=== PATIENT | female | born 1930 | race Caucasian/White ===

== ENCOUNTER 2016-10-13 07:37 | Inpatient (IN) | payer MEDICARE ==
[~2016-10-13] VITALS: Ht 160 cm; Wt 71.3 kg
[~2016-10-13 07:37] MED LIST: AMLO10TA2 PO; BRIM5DRO10 BOTH EYES; CHOL500019 PO; CLOP75TA33 PO; DOCU50CA5 PO; DULO60CA46 PO; HYDR25TA PO; INSU3INS3 SQ; LOSA100T44 PO; MV,C1TAB34 PO; ROSU10TA PO; SENN8.6C5 PO; ZOLP5TAB8 PO
--- OUTSIDE RECORDS SUMMARY | 2016-10-13 07:43 | XMS REPORT ---
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 80706674 Assessment Malignant neoplasm of right female breast, unspecified site of breast C50.911 Aug, Active 979004621 Problem Malignant neoplasm of right female breast, unspecified site of breast C50.911 Active 881662378 Problem Fibromyalgia M79.7 Active 663433231 Problem senior living current use of insulin Z79.4 Active 909917214 Problem History of left breast cancer Z85.3 Active 014936580 Problem Chronic pain syndrome G89.4 Active 410012469 Problem 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
--- OUTSIDE RECORDS SUMMARY | 2016-10-13 07:43 | XMS REPORT | Continuity of Care Document ---
Author Author [facility] Organization [facility] Address Unknown Phone Unavailable Support Name Relationship Address Phone JONATHAN TRIANA Caregiver [address] [place] [address] LALA ORONA MD Caregiver [facility] [address] [place], [place] [phone] NICA JULIO Next Of Kin [address] [facility] [place] [address] Insurance Providers Payer Name Policy Number Subscriber Name Relationship Medicarehumana [id number] Eleni Julio V 18 Self Advance Directives Directive Response Recorded Date/Time Ordered Resuscitation Status Full Code, unverified 07/20/14 3:43pm Resuscitation Documents on File Yes 07/20/14 1:15pm Problems No known problems or medical conditions. Medications Medication Dose Route Sig Days/Qty Instructions Order Date Discontinued Date Status Clopidogrel Bisulfate 5 Mg PO DAILY 90 Days START TOMORROW 05/25/14 DUE TO BIOPSY 05/23/14 Active Insulin Glargine,Hum.rec.anlog 20 Unit SQ TWICE A DAY 05/24/14 Active Brimonidine Tartrate/Timolol 1 Drop BOTH EYES TWICE A DAY 05/24/14 Active Hydrochlorothiazide 1 Tab PO GIVE WITH BREAKFAST 05/24/14 Active Losartan Potassium Unknown Dose PO DAILY 05/24/14 Active Amlodipine Besylate 10 Mg PO DAILY 05/24/14 Active Zolpidem Tartrate 5 Mg PO BEDTIME 05/24/14 Active Rosuvastatin Calcium 10 Mg PO BEDTIME Take 1 tablet, by mouth, one time a day at bedtime. 05/24/14 Active Cholecalciferol (Vitamin D3) 1 Tab PO DAILY 05/24/14 Active Mv,Ca,Iron,Min/FA/Phytosterol 1 Tab PO DAILY 05/24/14 Active Docusate Sodium 2 Cap PO TWICE A DAY 05/24/14 Active Sennosides 8.6 Mg PO BEDTIME 05/24/14 Active Duloxetine HCl 1 Cap PO DAILY 07/20/14 Active Social History Social History Problem Response Recorded Date/Time Chewing Tobacco Status No 07/20/2014 1:10pm Hx Substance Use No 07/20/2014 1:10pm Hx Alcohol Use No 07/20/2014 1:10pm Has the pt used tobacco in the last 12 months No 07/20/2014 1:10pm Query Response Start Date Stop Date Smoking Status Never smoker Hospital Discharge Instructions No hospital discharge instructions. Plan of Care No plan of care. Functional Status No functional status results. Allergies, Adverse Reactions, Alerts Allergen Type Severity Reaction Status Last Updated Iodine Allergy Unknown HAS A SENSITIVITY Active 05/23/14 Immunizations Name Given Type Hx Influenza Vaccination Y 2013 Historical Hx Pneumococcal Vaccination Y FALL 2013 Historical Hx Influenza Vaccination Y 2013 Historical Vital Signs Acute Vital Signs Vital Response Date/Time Temperature (Fahrenheit) 97.5 deg F (96.8 - 99.1) Temperature (Calculated Celsius) 36.55894 degrees C (36.0 - 37.3) Temperature Source Temporal Pulse Rate (adult) 68 bpm (60 - 100) Respiratory Rate 16 breaths/min (10 - 20) O2 Sat by Pulse Oximetry 99 % (90 - 100) Oxygen Delivery Method Room Air Blood Pressure 152/67 mm Hg Blood Pressure Source Automatic Cuff Height 5 ft 3 in Weight 172 lb Body Mass Index 30.0 kg/m^2 Results Test Source Date Result Interp. Ref. Range Comments Glucometer July 21, 2014 6:33am 110 mg/dL N 65-110 Alanine Aminotransferase (ALT/SGPT) June 01, 2014 9:49am 27 U/L N 9- 52 Albumin June 01, 2014 9:49am 3.8 G/DL N 3.5-5.0 Albumin/Globulin Ratio June 01, 2014 9:49am 1.2 RATIO N 1.1-2.2 Alkaline Phosphatase June 01, 2014 9:49am 116 U/L N 38-126 Anion Gap June 01, 2014 9:49am 9 MEQ/L N 5-15 Aspartate Amino Transf (AST/SGOT) June 01, 2014 9:49am 27 U/L N 14- 36 BUN/Creatinine Ratio June 01, 2014 9:49am 30 RATIO H 6-26 Basophils # (Auto) June 01, 2014 9:49am 0.1 T/MM3 N 0-0.2 Basophils (%) (Auto) June 01, 2014 9:49am 0.7 % N 0-2 Blood Urea Nitrogen June 01, 2014 9:49am 30.0 MG/DL H 7-17 CA 27.29 June 01, 2014 9:49am 42.21 U/ML H 0-37.7 Calcium Level June 01, 2014 9:49am 11.3 MG/DL H 8.4-10.2 Calculated Osmolality June 01, 2014 9:49am 275 MOSM/KG N 261-280 Carbon Dioxide Level June 01, 2014 9:49am 28 MEQ/L N 22-30 Carcinoembryonic Antigen June 01, 2014 9:49am 10.40 UG/L H 0-3.0 Chloride Level June 01, 2014 9:49am 104 MEQ/L N 98-107 Creatinine June 01, 2014 9:49am 1.0 MG/DL N 0.7-1.2 Eosinophils # (Auto) June 01, 2014 9:49am 0.3 T/MM3 N 0-0.5 Eosinophils (%) (Auto) June 01, 2014 9:49am 4.1 % H 0-4 Globulin June 01, 2014 9:49am 3.2 G/DL N 2.4-3.6 Glucose Level June 01, 2014 9:49am 68 MG/DL N 65-110 Hematocrit June 01, 2014 9:49am 40.4 % N 36-46 Hemoglobin June 01, 2014 9:49am 14.0 GM/DL N 12-16 Lactate Dehydrogenase June 01, 2014 9:49am 381 U/L N 313-618 Lymphocytes # (Auto) June 01, 2014 9:49am 2.2 T/MM3 N 1-4.8 Lymphocytes (%) (Auto) June 01, 2014 9:49am 27.3 % N 23-45 Mean Corpuscular Hemoglobin June 01, 2014 9:49am 31.7 UUG N 26-34 Mean Corpuscular Hemoglobin Concent June 01, 2014 9:49am 34.7 GM/DL N 31-37 Mean Corpuscular Volume June 01, 2014 9:49am 91.4 UM3 N 80-100 Mean Platelet Volume June 01, 2014 9:49am 10.2 UM3 N 9.4-12.4 Monocytes # (Auto) June 01, 2014 9:49am 0.6 T/MM3 N 0-0.8 Monocytes (%) (Auto) June 01, 2014 9:49am 7.6 % N 0-9.0 Neutrophils # (Auto) June 01, 2014 9:49am 4.8 T/MM3 N 1.8-7.7 Neutrophils (%) (Auto) June 01, 2014 9:49am 60.1 % N 33-66 Platelet Count June 01, 2014 9:49am 172 T/MM3 N 130-400 Potassium Level June 01, 2014 9:49am 4.0 MEQ/L N 3.6-5 Prothromb Time International Ratio May 24, 2014 8:40am 1.08 N 0.81- 1.09 THERAPUTIC RANGE=2.00-3.00 FOR ANTI-THROMBOSIS THERAPUTIC RANGE=2.50- 3.50 FOR IMPLANTED VALVE RDW Standard Deviation June 01, 2014 9:49am 41.5 FL N 36.9-50.2 Red Blood Count June 01, 2014 9:49am 4.42 M/MM3 N 4.00-5.20 Sodium Level June 01, 2014 9:49am 141 MEQ/L N 134-144 Total Bilirubin June 01, 2014 9:49am 0.60 MG/DL N 0.20-1.30 Total Protein June 01, 2014 9:49am 7.0 G/DL N 6.3-8.2 White Blood Count June 01, 2014 9:49am 8.0 T/MM3 N 4.5-11.0 Chemistry Specimen Hemolysis June 01, 2014 9:49am < 15 0-25 0-25 : No Hemolysis.26-70: Slight Hemolysis - can falsely elevate K and Urine Protein. 71-285: Moderate Hemolysis - can falsely elevate K, Troponin I, CA 19-9, PTH, CSF GLucose, and Urine Protein, and can falsely decrease Phenytoin. 286-999: Gross Hemolysis - can falsely elevate K, Troponin I, CA 19-9, PTH, CSF Glucose, and Urine Protine, and can falsely decrease Phenytoin. Recommend specimen recollection. Lab Scanned Report June 01, 2014 7:54pm LAB TEST FORM REQUEST [id number] - Turbidity June 01, 2014 9:49am < 20 0-20 Glomerular Filtration Rate Calc June 01, 2014 9:49am 53 - Immature Granulocyte # (Auto) June 01, 2014 9:49am 0.02 T/MM3 N 0.00 -0.03 Immature Granulocyte % (Auto) June 01, 2014 9:49am 0.2 % N 0.0-0.5 Icterus Index June 01, 2014 9:49am < 2 0-7 Name: ELENI JULIO V Unit #: [id number] : 1930 Sex: F Loc / Svc: MARÍA DOS: 06/09/14 Signed Report #: [id number] DIAGNOSTIC IMAGING REPORT TYPE OF EXAM: MRI THORACIC SPINE W/WO CONTRA Dictated By: DEXTER MERAZ MD INDICATION: ITS.REASON: 174.9 BREAST CA 733.90 DISORDER BONE AND CARTILAGE MRI THORACIC SPINE W/WO CONTRA: Comparison: None Technique: Multiplanar multisequence MR imaging of the thoracic spine was performed with and without contrast. Contrast: 7 mL Gadavist Findings: There are multiple metastatic lesions seen in the thoracic spine. These show expected T1 hypointensity, T2 hyperintensity and postcontrast enhancement. Lesions involve the posterior half of the T6 vertebra extending into the posterior elements on the left. There is also small lesion in the superior endplate of T7. Another lesion spans the T8-T9 disk space involving the inferior endplate of T8 and superior endplate of T9. A rounded lesion in the body of T11. Prominent lesion involving the posterior one third of the L1 vertebral body is also seen. There is no extra vertebral extension of mass however. No evidence of acute spinal cord compression. However there is evidence of cord compression posterior to the T2 vertebra which appears to be due to a disk protrusion. This is probably long-standing as there is evidence of myelomalacia in this location. There is also a prominent venous plexus posterior to the cord in this location. There are two hypointense lines within the posterior aspect of the T6 vertebra which could represent a nondisplaced fracture. This is best appreciated on the postcontrast sequence. No other areas suspicious for pathologic fracture appreciated. Numerous Schmorl's nodes are present. Central disk protrusion at T6-T7 causing mild central canal stenosis and impression on the cord. Right central disk protrusion at T11-T12 without significant central canal stenosis however. No gross neural foraminal stenosis Impression: 1. Multifocal osseous metastatic disease with a possible pathologic fracture involving the posterior aspect of the T6 vertebra. 2. 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 No other areas of spinal cord compression. . Procedures Procedure Status Date Provider(s) ROUTINE VENIPUNCTURE completed 05/12/14 COMPREHEN METABOLIC PANEL completed 05/12/14 CARCINOEMBRYONIC ANTIGEN completed 05/12/14 LACTATE (LD) (LDH) ENZYME completed 05/12/14 COMPLETE CBC W/AUTO DIFF WBC completed 05/12/14 IMMUNOASSAY TUMOR CA 15-3 completed 05/12/14 CT SOFT TISSUE NECK W/O DYE completed 05/17/14 CT THORAX W/O DYE completed 05/17/14 CT ABD & PELVIS W/O CONTRAST completed 05/17/14 US EXAM CHEST completed 05/17/14 BIOPSY OF NECK/CHEST completed 05/24/14 DEXTER MERAZ MD ROUTINE VENIPUNCTURE completed 05/24/14 ECHO GUIDE FOR BIOPSY completed 05/24/14 AUTOMATED PLATELET COUNT completed 05/24/14 PROTHROMBIN TIME completed 05/24/14 TISSUE EXAM BY PATHOLOGIST completed 05/24/14 ROUTINE VENIPUNCTURE completed 06/01/14 MRI NECK SPINE W/O & W/DYE completed 06/01/14 PET IMAGE W/CT SKULL-THIGH completed 06/01/14 COMPREHEN METABOLIC PANEL completed 06/01/14 CARCINOEMBRYONIC ANTIGEN completed 06/01/14 LACTATE (LD) (LDH) ENZYME completed 06/01/14 COMPLETE CBC W/AUTO DIFF WBC completed 06/01/14 IMMUNOASSAY TUMOR CA 15-3 completed 06/01/14 [id number]"FLUORODEOXYGLUCOSE F-18 FDG, DIAGNOSTIC, PER STUDY DO completed GADAVIST 10ML SDV - Contrast,Gadavist 10ml completed 06/01/14 MRI CHEST SPINE W/O & W/DYE completed 06/09/14 GADAVIST 10ML SDV - Contrast,Gadavist 10ml completed 06/09/14 Colonoscopy with polypectomy and biopsy completed 07/21/14 LAAL ORONA MD Encounters Encounter Location Date/Time Registered [facility] 06/09/14 7:32am Registered [facility] 06/01/14 6:30am Departed [facility] 05/24/14 8:09am Registered [facility] 05/17/14 7:13am Registered [facility] 05/12/14 12:46pm
--- OUTSIDE RECORDS SUMMARY | 2016-10-13 07:43 | XMS REPORT | Continuity of Care Document ---
Author Author [facility] Organization [facility] Address Unknown Phone Unavailable Support Name Relationship Address Phone ASHA PALMER II, MD Caregiver [address] [place] [address] Unavailable MAGDALENA RICHARDSON Caregiver [address] [place] [address] Unavailable DIANNA JULIO Next Of Kin [place], [place] [phone] Insurance Providers Guarantor Eleni Julio V Address [address] [place] [address] PRINCE Email DENIED/NO TO PT PORT Payer Medicare Policy Number [id number] Subscriber's Name Eleni Julio V Relationship 18 Self Effective Date [address] [facility] Policy Number [id number] Subscriber's Name Eleni Julio V Relationship 18 Self Group Number [id number] Problems No problem information available. Medications Current Home Medications Medication Dose Units Route Directions Days Qty Instructions Start Date Amlodipine Besylate 10 Mg Tablet 10 Mg Oral Daily 05/24/14 Brimonidine Tartrate/Timolol (Combigan Eye Drops) 5 Ml Drops 1 Drop Both Eyes Twice A Day 05/24/14 Cholecalciferol (Vitamin D3) (Vitamin D) 5,000 Unit Tablet 1 Tab Oral Daily 05/24/14 Clopidogrel Bisulfate (Clopidogrel) 75 Mg Tablet 5 Mg Oral Daily 90 Days START TOMORROW 05/25/14 DUE TO BIOPSY 05/23/14 Docusate Sodium (Colace) 50 Mg Capsule 2 Cap Oral Twice A Day Duloxetine Hcl (Cymbalta) 60 Mg Capsule. 1 Cap Oral Daily 07/20 Hydrochlorothiazide 25 Mg Tablet 1 Tab Oral Give With Breakfast 05/24/14 Insulin Glargine,Hum.rec.anlog (Lantus Solostar) 1 Unit Pen 20 Unit Sub-Q Twice A Day 05/24/14 Losartan Potassium 100 Mg Tablet Unknown Dose Oral Daily Mv,Ca,Iron,Min/Fa/Phytosterol (Centrum Specialist Heart Tab) 1 Each Tablet 1 Tab Oral Daily 05/24/14 Rosuvastatin Calcium (Crestor) 10 Mg Tablet 10 Mg Oral Bedtime Take 1 tablet, by mouth, one time a day at bedtime. 05/24/14 Sennosides (Senna) 8.6 Mg Capsule 8.6 Mg Oral Bedtime 05/24/14 Zolpidem Tartrate 5 Mg Tablet 5 Mg Oral Bedtime Take 1 tablet, by mouth, 1 time a day (at BEDTIME). 05/24/14 Social History Social History Problem Response Recorded Date/Time Onset Date Status Hx Substance Use No 07/20/2014 1:10pm Not Applicable Not Applicable Hx Alcohol Use No 07/20/2014 1:10pm Not Applicable Not Applicable Has the pt used tobacco in the last 12 months No 07/20/2014 1:10pm Not Applicable Not Applicable Hospital Discharge Instructions No hospital discharge instructions. Plan of Care Prescriptions See Medication Section Functional Status No functional status results. Allergies, Adverse Reactions, Alerts Allergen Type Severity Reaction Status Last Updated Iodine Allergy Unknown HAS A SENSITIVITY Active 05/23/14 Immunizations Query Response on File Recorded Date/Time Hx Influenza Vaccination Y 2013 07/20/14 1:10pm Hx Pneumococcal Vaccination Y fall 201307/20/14 1:10pm Hx Influenza Vaccination Y 2013 07/20/14 1:10pm Vital Signs No known vital signs results. Results Laboratory Results Test Name Result Units Flags Reference Collection Date/Time Result Date/ Time Comments White Blood Count 10.2 T/MM3 4.5-11.0 06/04/2016 5:15pm 06/04/2016 5: 36pm Red Blood Count 4.22 M/MM3 4.00-5.20 06/04/2016 5:15pm 06/04/2016 5: 36pm Hemoglobin 13.1 GM/DL 12-16 06/04/2016 5:15pm 06/04/2016 5:36pm Hematocrit 39.6 % 36-46 06/04/2016 5:15pm 06/04/2016 5:36pm Mean Corpuscular Volume 93.8 UM3 80-100 06/04/2016 5:15pm 06/04/2016 5: 36pm Mean Corpuscular Hemoglobin 31.0 UUG 26-34 06/04/2016 5:152015 5:36pm Mean Corpuscular Hemoglobin Concent 33.1 GM/DL 31-37 06/04/2016 5:15pm 06/04/2016 5:36pm RDW Standard Deviation 41.3 FL 36.9-50.2 06/04/2016 5:15pm 06/04/2016 5 :36pm Platelet Count 200 T/MM3 130-400 06/04/2016 5:15pm 06/04/2016 5:36pm Mean Platelet Volume 9.9 UM3 9.4-12.4 06/04/2016 5:15pm 06/04/2016 5: 36pm Neutrophils (%) (Auto) 56.7 % 33-66 06/04/2016 5:15pm 06/04/2016 5: 36pm Lymphocytes (%) (Auto) 29.7 % 23-45 06/04/2016 5:15pm 06/04/2016 5: 36pm Monocytes (%) (Auto) 7.7 % 0-9.0 06/04/2016 5:15pm 06/04/2016 5:36pm Eosinophils (%) (Auto) 4.7 % H 0-4 06/04/2016 5:15pm 06/04/2016 5:36pm Basophils (%) (Auto) 0.9 % 0-2 06/04/2016 5:15pm 06/04/2016 5:36pm Immature Granulocyte % (Auto) 0.3 % 0.0-0.5 06/04/2016 5:15pm 2015 5:36pm Absolute Neutrophils (auto) 5.8 T/MM3 1.8-7.7 06/04/2016 5:15pm 2015 5:36pm Absolute Lymphocytes (auto) 3.0 T/MM3 1-4.8 06/04/2016 5:15pm 2015 5:36pm Absolute Monocytes (auto) 0.8 T/MM3 0-0.8 06/04/2016 5:15pm 06/04/2016 5:36pm Absolute Eosinophils (auto) 0.5 T/MM3 0-0.5 06/04/2016 5:15pm 2015 5:36pm Absolute Basophils (auto) 0.1 T/MM3 0-0.2 06/04/2016 5:15pm 06/04/2016 5:36pm Absolute Immature Granulocyte (auto 0.03 T/MM3 0.00-0.03 06/04/2016 5: 15pm 06/04/2016 5:36pm Prothromb Time International Ratio 0.98 0.76-1.04 06/06/2016 4:32pm 06/06/2016 5:52pm THERAPUTIC RANGE=2.00-3.00 FOR ANTI-THROMBOSIS THERAPUTIC RANGE=2.50-3.50 FOR IMPLANTED VALVE Fibrinogen 427 MG/DL 175-450 06/06/2016 4:32pm 06/06/2016 5:52pm D-Dimer 235 NG/ML H 0-230 06/06/2016 4:32pm 06/06/2016 5:52pm <230 NG/ ML D-DU=PRESUMPTIVE NEGATIVE FOR PE OR DVT >230 NG/ML D-DU=ADDITIONAL EVAL FOR PE OR DVT RECOMMENDED Icterus Index < 2 0-7 06/04/2016 5:15pm 06/04/2016 5:39pm Chemistry Specimen Hemolysis < 15 0-25 06/04/2016 5:15pm 06/04/2016 5 :39pm 0-25: Specimen Exhibited No Hemolysis. Turbidity < 20 0-20 06/04/2016 5:15pm 06/04/2016 5:39pm Sodium Level 146 MEQ/L H 134-144 06/04/2016 5:15pm 06/04/2016 5:39pm Potassium Level 4.3 MEQ/L 3.6-5 06/04/2016 5:15pm 06/04/2016 5:39pm Chloride Level 107 MEQ/L 98-107 06/04/2016 5:15pm 06/04/2016 5:39pm Carbon Dioxide Level 25 MEQ/L 22-30 06/04/2016 5:15pm 06/04/2016 5: 39pm Anion Gap 14 MEQ/L 5-15 06/04/2016 5:15pm 06/04/2016 5:39pm Blood Urea Nitrogen 38.0 MG/DL H 7-17 06/04/2016 5:15pm 06/04/2016 5: 39pm Creatinine 1.3 MG/DL H 0.7-1.2 06/04/2016 5:15pm 06/04/2016 5:39pm BUN/Creatinine Ratio 29 RATIO H 6-26 06/04/2016 5:15pm 06/04/2016 5: 39pm Glomerular Filtration Rate Calc 39 06/04/2016 5:15pm 06/04/2016 5: 39pm Glucose Level 150 MG/DL H 65-110 06/04/2016 5:15pm 06/04/2016 5:39pm Calculated Osmolality 293 MOSM/KG H 261-280 06/04/2016 5:15pm 2015 5:39pm Calcium Level 10.9 MG/DL H 8.4-10.2 06/04/2016 5:15pm 06/04/2016 5:39pm Phosphorus Level 3.5 MG/DL 2.5-4.5 04/18/2016 8:41am 04/18/2016 9:00am Total Bilirubin 0.50 MG/DL 0.20-1.30 06/04/2016 5:15pm 06/04/2016 5: 39pm Alkaline Phosphatase 58 U/L 38-126 06/04/2016 5:15pm 06/04/2016 5:39pm Total Protein 7.4 G/DL 6.3-8.2 06/04/2016 5:15pm 06/04/2016 5:39pm Albumin 4.0 G/DL 3.5-5.0 06/04/2016 5:15pm 06/04/2016 5:39pm Globulin 3.4 G/DL 2.4-3.6 06/04/2016 5:15pm 06/04/2016 5:39pm Albumin/Globulin Ratio 1.2 RATIO 1.1-2.2 06/04/2016 5:15pm 06/04/2016 5 :39pm Aspartate Amino Transf (AST/SGOT) 23 U/L 14-36 06/04/2016 5:15pm 2015 5:39pm Alanine Aminotransferase (ALT/SGPT) 26 U/L 9-52 06/04/2016 5:15pm 06/04 5:39pm Lactate Dehydrogenase 417 U/L 313-618 06/04/2016 5:15pm 06/04/2016 5: 39pm C-Reactive Protein < 5.0 MG/L 0-9 06/04/2016 5:15pm 06/06/2016 2:19pm Magnesium Level 1.9 MG/DL 1.6-2.3 05/16/2016 9:05am 05/16/2016 9:20am Immunoglobulin G 965.96 MG/DL 700-1600 06/07/2016 12:31pm 06/07/2016 12 :52pm Immunoglobulin A 366.41 MG/DL 70-400 06/07/2016 12:31pm 06/07/2016 12: 52pm Immunoglobulin M 37.94 MG/DL L 40-230 06/07/2016 12:31pm 06/07/2016 12: 52pm Carcinoembryonic Antigen 4.03 UG/L H 0-3.0 06/04/2016 5:15pm 06/04/2016 6:09pm CA 27.29 40.53 U/ML H 0-37.7 06/04/2016 5:15pm 06/04/2016 6:21pm Cryoglobulin Negative %ppt Negative 06/07/2016 12:31pm 06/11/2016 10: 13am This test is negative at 24 hours. All samples are held and reviewed again at 7 days. If delayed precipitation occurs after 7 days, Immunofixation will be performed and an additional report will follow. Test Performed by: [place] [address] Material Carrier: Miguel Arias II, M.D., Ph.D. Cryoglobulin, S performed at [facility], [address] [place] [address] Frankfurter Inspector Juana Cardenas MD Serum Total Protein 6.2 g/dL 6.0-7.6 06/07/2016 12:31pm 06/07/2016 9: 44pm Immunoelectrophoresis, no IMQ performed at [facility], [address] [place] [address] Frankfurter Inspector Leonard Whiteside DO Albumin (PEP) 3.4 g/dL 2.6-4.5 06/07/2016 12:31pm 06/10/2016 2:10pm Vnjiy-0-Koibiehti 0.3 g/dL 0.3-0.5 06/07/2016 12:31pm 06/10/2016 2: 10pm Bmvvn-9-Ehsgdohzk 0.9 g/dL 0.6-1.2 06/07/2016 12:31pm 06/10/2016 2: 10pm Slfd-7-Xrfbpitu 0.4 g/dL 0.4-0.6 06/07/2016 12:31pm 06/10/2016 2:10pm Vnky-8-Mzwxfvbm 0.4 g/dL 0.2-0.5 06/07/2016 12:31pm 06/10/2016 2:10pm Gamma Globulins 0.9 g/dL 0.4-1.7 06/07/2016 12:31pm 06/10/2016 2:10pm Albumin % (PEP) 55.2 % 48.7-61.8 06/07/2016 12:31pm 06/10/2016 2:10pm Tiakz-7-Uaumyohzc (%) 4.5 % 3.4-8.3 06/07/2016 12:31pm 06/10/2016 2: 10pm Zsqdt-1-Kpnnhnqft (%) 14.6 % 8.4-17.5 06/07/2016 12:31pm 06/10/2016 2: 10pm Ttda-1-Jkltwyhd (%) 5.6 % 5.4-8.9 06/07/2016 12:31pm 06/10/2016 2:10pm Nwim-5-Jmobclog (%) 6.4 % 3.8-7.7 06/07/2016 12:31pm 06/10/2016 2:10pm Gamma Globulins (%) 13.7 % 8.1-23.0 06/07/2016 12:31pm 06/10/2016 2: 10pm Immunoelectrophoresis, no IMQ performed at [facility], [address] [place] [address] Frankfurter Inspector Leonard Whiteside DO Protein Electrophoresis Comment see below 06/07/2016 12:31pm 2015 2:10pm Normal electrophoretic pattern. No monoclonal peaks or restricted areas observed by immunofixation. Free Goldfield/Lambda Light Chain Ratio 2.31 H 06/07/2016 12:31pm 2015 2:13pm Reference Range: 0.2600-1.65 Test Performed by: [address] [address] Material Carrier: Miguel Arias II, M.D., Ph.D. Immunoglobulin Free Light Chains, Serum performed at [facility], [address] [place] [address] Frankfurter Inspector Juana Cardenas MD Free Goldfield Light Chains 4.41 mg/dL H 06/07/2016 12:31pm 06/10/2016 2: 13pm Reference Range: 0.3300-1.94 Free Lambda Light Chains 1.91 mg/dL () 06/07/2016 12:31pm 06/10/2016 2: 13pm Reference Range: 0.5700-2.63 Test Performed by: [place] [address] Material Carrier: Miguel Arias II, M.D., Ph.D. Immunoglobulin Free Light Chains, Serum performed at [facility], [address] [place] [address] Frankfurter Inspector Juana Cardenas MD Reference Range: 0.5700-2.63 --- 06/10/16 1413 --- IFLCLA previously reported as: 1.91 mg/dL Reference Range: 0.5700-2.63 Test Performed by: [place] [address] Material Carrier: Miguel Arias II, M.D., Ph.D. Immunoglobulin Free Light Chains, Serum performed at [facility], [address] [place] [address] Frankfurter Inspector Juana Cardenas MD Erythrocyte Sedimentation Rate 32 mm/h H 0-23 06/06/2016 4:32pm 2015 1:23am Sedimentation Rate performed at [facility], [address] [place] [address] Frankfurter Inspector Leonard Whiteside, Procedures No known history of procedures. Encounters Encounter Location Arrival/Admit Date Discharge/Depart Date Attending Provider Discharged Recurring [facility] 06/07/16 12:02pm 06/29/16 11: 49pm MAGDALENA RICHARDSON
[2016-10-13] MEDS ORDERED: NORMAL SALINE 1,000 ML IV ONE (08:01)
--- NOTE | 2016-10-13 08:01 | ERPDOC ---
Departure Impression Impression Referrals: REYNALDO WYATT (Family) HPI - Abdominal Pain General Chief Complaint: Abdominal Pain Stated Complaint: SEVERE ABD PAIN Time Seen by Provider: 07:59 HPI - Abdominal Pain Initial Comments 86-year-old female presents with abdominal pain. Patient cannot identify exactly where it hurts, but states it hurts all over. She has a history of hemorrhoids which also causes her pain. At this moment she is having difficulty clearly describing, possibly because of the severity of the pain. She has had diarrhea intermittently over the last 10 days, there is some conflicting story as to how much she is passed and whether she has had any solid stools. She denies fevers or chills. Does state she has dysuria. Allergies: Coded Allergies: iodine (Unverified Allergy, Unknown, HAS A SENSITIVITY, 05/23/14) Past History Vaccines Hx Influenza Vaccination: Yes (2013) Hx Pneumococcal Vaccination: Yes (FALL 2013) Physical Exam General Vitals and Pain Weight: Kilograms: Height (feet): 5 Height (inches): 3.00 Triage Pain Scale: EDWARD JOYNER MD Oct 13, 2016 08:01
--- OUTSIDE RECORDS SUMMARY | 2016-10-13 08:07 | XMS REPORT | Continuity of Care Document ---
Author Author [facility] Organization [facility] Address Unknown Phone Unavailable Support Name Relationship Address Phone JONATHAN TRAINA Caregiver [address] [place] [address] LALA ORONA MD Caregiver [facility] [address] [place], [place] [phone] NICA JULIO Next Of Kin [address] [facility] [place] [address] Insurance Providers Payer Name Policy Number Subscriber Name Relationship Medicarehumana [id number] Eleni Julio V 18 Self Advance Directives [...] F (96.8 - 99.1) Temperature (Calculated Celsius) 36.78349 degrees C (36.0 - 37.3) Temperature Source [...] 01, 2014 7:54pm LAB TEST FORM REQUEST [id number] - Turbidity June 01, 2014 9:49am < 20 0-20 Glomerular Filtration Rate Calc June 01, 2014 9:49am 53 - Immature Granulocyte # (Auto) June 01, 2014 9:49am 0.02 T/MM3 N 0.00 -0.03 Immature Granulocyte % (Auto) June 01, 2014 9:49am 0.2 % N 0.0-0.5 Icterus Index June 01, 2014 9:49am < 2 0-7 Name: ELENI JUILO V Unit #: [id number] : 1930 Sex: F Loc / Svc: MARÍA DOS: 06/09/14 Signed Report #: [id number] DIAGNOSTIC IMAGING REPORT TYPE OF EXAM: MRI [...] 06/01/14 IMMUNOASSAY TUMOR CA 15-3 completed 06/01/14 [id number]"FLUORODEOXYGLUCOSE F-18 FDG, DIAGNOSTIC, PER STUDY DO completed GADAVIST 10ML SDV - Contrast,Gadavist 10ml completed 06/01/14 MRI CHEST SPINE W/O & W/DYE completed 06/09/14 GADAVIST 10ML SDV - Contrast,Gadavist 10ml completed 06/09/14 Colonoscopy with polypectomy and biopsy completed 07/21/14 LALA ORONA MD Encounters Encounter Location Date/Time Registered [facility] 06/09/14 7:32am Registered [facility] 06/01/14 6:30am Departed [facility] 05/24/14 8:09am Registered [facility] 05/17/14 7:13am Registered [facility] 05/12/14 12:46pm
[2016-10-13] MEDS ORDERED: HYDROMORPHONE 2mg/ml INJECTION IV ONE ×2 (08:15→10:30)
[2016-10-13] MEDS ORDERED: KETOROLAC 30mg/ml INJECTION IV ONE (08:15)
[2016-10-13] MEDS ORDERED: ONDANSETRON 4mg/2ml INJECTION IV ONE (08:15)
[2016-10-13 08:22] LABS: BASOPHILS # (AUTO) 0.1 T/MM3 (0-0.2); BASOPHILS % (AUTO) 0.5 % (0-2); EOSINOPHILS # (AUTO) 0.7 T/MM3 (0-0.5); EOSINOPHILS % (AUTO) 6.3 % (0-4); HCT - HEMATOCRIT 42.1 % (36-46); HGB - HEMOGLOBIN 14.5 GM/DL (12-16); IMMATURE GRANULOCYTE # (AUTO) 0.02 T/MM3 (0.00-0.03); IMMATURE GRANULOCYTE % (AUTO) 0.2 % (0.0-0.5); LYMPHOCYTES # (AUTO) 3.2 T/MM3 (1-4.8); MEAN CORPUSCULAR HGB CONC(MCHC 34.4 GM/DL (31-37); MEAN CORPUSCULAR VOLUME 90.1 UM3 (80-100); MEAN PLATELET VOLUME 10.3 UM3 (9.4-12.4); MONOCYTES # (AUTO) 0.9 T/MM3 (0-0.8); MONOCYTES % (AUTO) 8.4 % (0-9.0); NEUTROPHILS #(AUTO)-ABSOLUTE 6.1 T/MM3 (1.8-7.7); NEUTROPHILS % (AUTO) 55.6 % (33-66); RED BLOOD COUNT 4.67 M/MM3 (4.00-5.20); WBC - WHITE BLOOD COUNT 11.1 T/MM3 (4.5-11.0)
[2016-10-13 08:26] LABS: ALBUMIN 3.2 G/DL (3.5-5.0); ALBUMIN/GLOBULIN RATIO 0.9 RATIO (1.1-2.2); ALKALINE PHOSPHATASE 84 U/L (38-126); ALT (SGPT) 26 U/L (9-52); ANION GAP 14 MEQ/L (5-15); AST (SGOT) 30 U/L (14-36); BUN/CREATININE RATIO 16 RATIO (6-26); CALCIUM 10.5 MG/DL (8.4-10.2); CHLORIDE 105 MEQ/L (98-107); CO2 - CARBON DIOXIDE 25 MEQ/L (22-30); CREATININE 1.3 MG/DL (0.7-1.2); GLOMERULAR FILTRATION RATE 39; GLUCOSE 112 MG/DL (65-110); LIPASE 64 U/L (23-300); POTASSIUM 3.9 MEQ/L (3.6-5); SODIUM 144 MEQ/L (134-144); TOTAL PROTEIN 6.7 G/DL (6.3-8.2)
--- NOTE | 2016-10-13 08:30 | NUR ---
IVF ORDER PER DR JOYNER, 500 NS IVF BOLUS FOLLOWED BY 200 ML'S/ HR ORDER VERBAL NOTED.
[2016-10-13] MEDS ORDERED: VANCOMYCIN 1.5 G in NORMAL SALINE 500 ML IV ONE (08:45)
[2016-10-13] MEDS ORDERED: CEFEPIME 1 G in NORMAL SALINE 100 ML IV SCH (08:45)
--- NOTE | 2016-10-13 08:55 | NUR ---
REPORT REPORT TO WESLEY HARO
[2016-10-13] MEDS ORDERED: MULT-1243 PO (09:09)
[2016-10-13] MEDS ORDERED: MULT1TAB13 PO (09:15)
[2016-10-13] MEDS ORDERED: BIMA2.5D6 BOTH EYES (09:18)
[2016-10-13] MEDS ORDERED: CALC-16 PO (09:22)
[2016-10-13] MEDS ORDERED: METO25TA6 PO (09:22)
[2016-10-13] MEDS ORDERED: TRAM50TA4 PO ×2 (09:24→09:31)
[2016-10-13] MEDS ORDERED: ERGO400C PO (09:24)
[2016-10-13] MEDS ORDERED: ACET-2198 PO (09:27)
[2016-10-13] MEDS ORDERED: MAGN400O4 PO (09:27)
[2016-10-13] MEDS ORDERED: BISA10SU16 RECTALLY (09:27)
[2016-10-13] MEDS ORDERED: LORA0.5T2 PO (09:27)
[2016-10-13] MEDS ORDERED: POLY119P3 PO (09:31)
[2016-10-13 09:38] LABS: BLOOD, URINE 1+ (NEGATIVE); COLOR,URINE YELLOW (YELLOW); LEUKOCYTE ESTERASE ,URINE NEGATIVE (NEGATIVE); NITRITE,URINE NEGATIVE (NEGATIVE); UROBILINOGEN,URINE 0.2 EU/DL (NORMAL)
[2016-10-13 09:49] LABS: BACTERIA,URINE 3+ (NEGATIVE); RBC,URINE 0-1 /HPF (0-3); TRANSITIONAL EPI CELLS,URINE 0-1 /HPF; WBC,URINE NONE SEEN /HPF (0-5)
[2016-10-13] MEDS: LEVOFLOXACIN 750 mg IVPB 750 MG in D5W 150 ML IV SCH (09:56)
--- NOTE | 2016-10-13 10:53 | NUR ---
ANURAG MURPHY RN ASSIGNS ROOM 162 WITH JAMES RAMOS RN
--- NOTE | 2016-10-13 10:57 | NUR ---
REPORT CALLED [phone] NO ANSWER AT THIS TIME
--- NOTE | 2016-10-13 11:05 | NUR ---
IVF VERBAL ORDER FOR 1 LITER NS AT 500 CC PER HOUR FOR SEPSIS PROTOCOL
--- OUTSIDE RECORDS SUMMARY | 2016-10-13 11:05 | XMS REPORT | Continuity of Care Document ---
Author Author [facility] Organization [facility] Address Unknown Phone Unavailable Support Name Relationship Address Phone JONATHAN TRIANA Caregiver [address] [address] LALA ORONA MD Caregiver [facility] [address] [place], [place] [phone] NICA JULIO Next Of Kin [address] [facility] [place] [address] Insurance Providers Payer Name Policy Number Subscriber Name Relationship Medicarehumana [id number] Eleni Julio V 18 Self Advance Directives [...] F (96.8 - 99.1) Temperature (Calculated Celsius) 36.73891 degrees C (36.0 - 37.3) Temperature Source [...] 01, 2014 7:54pm LAB TEST FORM REQUEST [id number] - Turbidity June 01, 2014 9:49am < 20 0-20 Glomerular Filtration Rate Calc June 01, 2014 9:49am 53 - Immature Granulocyte # (Auto) June 01, 2014 9:49am 0.02 T/MM3 N 0.00 -0.03 Immature Granulocyte % (Auto) June 01, 2014 9:49am 0.2 % N 0.0-0.5 Icterus Index June 01, 2014 9:49am < 2 0-7 Name: ELENI JULIO V Unit #: [id number] : 1930 Sex: F Loc / Svc: MARÍA DOS: 06/09/14 Signed Report #: [id number] DIAGNOSTIC IMAGING REPORT TYPE OF EXAM: MRI [...] 06/01/14 IMMUNOASSAY TUMOR CA 15-3 completed 06/01/14 [id number]"FLUORODEOXYGLUCOSE F-18 FDG, DIAGNOSTIC, PER STUDY DO completed GADAVIST 10ML SDV - Contrast,Gadavist 10ml completed 06/01/14 MRI CHEST SPINE W/O & W/DYE completed 06/09/14 GADAVIST 10ML SDV - Contrast,Gadavist 10ml completed 06/09/14 Colonoscopy with polypectomy and biopsy completed 07/21/14 LALA ORONA MD Encounters Encounter Location Date/Time Registered [facility] 06/09/14 7:32am Registered [facility] 06/01/14 6:30am Departed [facility] 05/24/14 8:09am Registered [facility] 05/17/14 7:13am Registered [facility] 05/12/14 12:46pm
--- NOTE | 2016-10-13 11:08 | NUR ---
REPORT TO JAMES HARO ON MEDICAL
[2016-10-13 11:29] VITALS: Ht 160 cm; Wt 71.3 kg
[2016-10-13 11:39] VITALS: BP 201/89; PULSE 91; RESP 20; TEMP 98.6; O2SAT 100
[2016-10-13] MEDS ORDERED: ONDANSETRON 4mg/2ml INJECTION IV PRN (12:15)
[2016-10-13] MEDS ORDERED: METOCLOPRAMIDE 10mg/2ml INJECTION IV PRN (12:15)
[2016-10-13] MEDS: MORPHINE SULFATE 2 MG SYRINGE IV PRN ×3 (12:25→17:57)
[2016-10-13] MEDS: LORAZEPAM 2 MG/ML INJECTION IV PRN (12:27)
[2016-10-13] MEDS ORDERED: HYDROCORTISONE 25 MG RECTAL SUPPOSITORY RECTALLY PRN (12:30)
--- NOTE | 2016-10-13 12:30 | HPPDOC ---
WAGNER STOUT V DIRECTOR OF PLACEMENT 10/13/16 1218: HPI - Adult Date DATE: 10/13/16 TIME: 12:10 General Chief Complaint: abdominal pain, dysuria History of Present Illness Patient is a 6-year-old female who is brought to the emergency room today for evaluation of severe abdominal pain with dysuria. It is reported that patient has been having intermittent episodes of diarrhea for the past 10 days. Over the last 24 hours she has had worsening lower abdominal discomfort accompanied with intermittent nausea.Nursing staff repots that stool is has a "foul" odor. Due to severity in her pain she was sent to the emergency room for further evaluation and treatment. Patient currently resides at [facility]. Patient's son reports that she was found to have recurrence of her breast cancer approximately one month ago and started hormone therapy with Dr. Israel. It is also reported that she has some metastatic disease into her bones. While in the emergency room today. Further evaluation including laboratory studies and CT scan were obtained. Patient was found have an elevated white count at 11.1, hemoglobin 14.5, hematocrit 42.1, platelet count 261. Sodium is 144, potassium 3.9, BUN 21, creatinine 1.3, glucose 112, calculated osmolality 281. LFTs are normal. Venous lactate was found to be elevated at 2.4, pro calcitonin 0.10. An ABG was obtained showing a pH of 7.674, pCO2 18, pO2 30, bicarbonate 21. Urinalysis did show 3+ protein, trace leuk trase, positive blood with 3+ bacteria. Chest x-ray did not reveal any acute cardiopulmonary findings. CT of the abdomen did reveal overdistention of the bladder, with 1200 ML's of urine. Mild colonic diverticulosis without evidence of diverticulitis, extensive osteoblastic skeletal metastasis. She was given IV fluids in the emergency room. She was then started on triple antibiotic therapy including cefepime, Levaquin and vancomycin. She received 2 doses of Dilaudid and Toradol for pain control. As well as Zofran for nausea. Alvarez catheter was placed to dependent drainage. Given bladder overdistention. Given continued severity and pain, as well as findings of sepsis. The hospitalist services were contacted and accepted patient for inpatient admission for further evaluation and treatment. Did review advanced directives with patient and son. She does verify that she is a do not resuscitate. 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 Good) Hysterectomy Removal of blood clot in the spine Current Medications Home Meds Reported Medications Tramadol HCl (Tramadol HCl) 50 Mg Tablet, 50 MG PO BID Y for PAIN 10/13/16 Polyethylene Glycol 3350 (Miralax) 119 Gm Powder, 17 G PO DAILY Y for CONSTIPATION 10/13/16 Magnesium Hydroxide (Milk of Magnesia) 400 Mg/5 Ml Oral.susp, 30 ML PO Q8H Y for CONSTIPATION 10/13/16 Acetaminophen (Mapap) 325 Mg Tablet, 650 MG PO Q4H Y for PAIN 10/13/16 Lorazepam (Lorazepam) 0.5 Mg Tablet, 0.5 MG PO Q8H Y for ANXIETY 10/13/16 Bisacodyl (Bisac-Evac) 10 Mg Supp.rect, 10 MG RECTALLY DAILY Y for CONSTIPATION 10/13/16 Cholecalciferol (Vitamin D3) (Vitamin D) 400 Unit Capsule, 400 MG PO DAILY 10/13/16 Tramadol HCl (Tramadol HCl) 50 Mg Tablet, 100 MG PO HS 10/13/16 Calcium Carbonate (Oyster Shell Calcium) 500 Mg Tablet, 500 MG PO BID 10/13/16 Metoprolol Tartrate (Metoprolol Tartrate) 25 Mg Tablet, 12.5 MG PO BIDWM 10/13/16 Bimatoprost (Lumigan) 25 Drop/2.5 Ml Drops, 1 DROP BOTH EYES HS 10/13/16 Multivit-Min/FA/Lutein/Zeaxant (Icaps Mv Tablet) 1 Each Tablet.dr, 1 TAB PO MoWeFr@0800 10/13/16 Multivits-Min/FA/Lycopene/Lut (Centrum Silver Tablet) 1 Each Tablet, 1 TAB PO TuFr@0800 10/13/16 Duloxetine HCl (Cymbalta) 60 Mg Capsule.dr, 60 MG PO DAILY 07/20/14 Rosuvastatin Calcium (Crestor) 10 Mg Tablet, 10 MG PO DAILY 05/24/14 Zolpidem Tartrate (Zolpidem Tartrate) 5 Mg Tablet, 2.5 MG PO HS Y for INSOMNIA 05/24/14 Amlodipine Besylate (Amlodipine Besylate) 10 Mg Tablet, 10 MG PO DAILY 05/24/14 Losartan Potassium (Losartan Potassium) 100 Mg Tablet, 100 MG PO DAILY 05/24/14 Hydrochlorothiazide (Hydrochlorothiazide) 25 Mg Tablet, 25 MG PO DAILY 05/24/14 Insulin Glargine,Hum.rec.anlog (Lantus Solostar) 1 Unit Pen, 8 UNIT SQ BID 05/24/14 Clopidogrel Bisulfate (Clopidogrel) 75 Mg Tablet, 75 MG PO DAILY for 90 Days 05/23/14 Allergies: Coded Allergies: iodine (Unverified Allergy, Unknown, HAS A SENSITIVITY, 10/13/16) Family History Family History: Father-cancer Mother-[place], diabetes Social History Smoking Status: Never smoker Substance Use Type: does not use Housing: [facility] Advance Directives: Yes DNR, Yes DPOA for Healthcare Only (janell christy) Social History Comments PCP Dr Yvan Cancino Review of Systems Constitutional: REPORTS: appetite decrease, fatigue, weakness GI Upper Abdomen: nausea Lower Abdomen: pain (bilateral lower abd) Comments Hemorrhoid inflammation, pain General: dysuria All Other Systems All Other Systems: Reviewed Physical Exam General General Nourishment: well nourished, well developed Vital Signs Vital Signs Date Time Temp Pulse Resp B/P Pulse Ox O2 Delivery O2 Flow Rate FiO2 10/13/16 11:39 98.6 91 20 201/89 100 Room Air Height (Feet): 5 Height (Inches): 3.00 Eyes Brief: FOUND: EOMI ENMT Brief: FOUND: mucosa moist, normal dentition, NOT FOUND: pharnyx erythema Respiratory Brief: FOUND: clear all motley, equal bilaterally, NOT FOUND: wheezes Cardiovascular (brief) Cardiac Brief: FOUND: regular rate, regular rhythm, NOT FOUND: murmur, pedal edema Abdomen (brief) Abdominal Brief: FOUND: soft, tender (bilateral lower abdomen), NOT FOUND: BS normo active x4 (hypoactive bowel sounds), distended Musculoskeletal (brief) Musculoskeletal Brief: NOT FOUND: tenderness Integumentary (brief) Integumentary Brief: FOUND: dry, pink, warm Neurologic (brief) Neurological Brief: FOUND: cranial 2-12 intact, motor (equal bilateral 4 extremities) Neurologic RN Documented GCS Eye Opening: Verbal: Motor: Total: Psychiatric (brief) FOUND: alert, attentive, normal affect, oriented Laboratory Laboratory Tests Test 10/13/16 08:04 10/13/16 09:08 10/13/16 09:33 White Blood Count 11.1T/MM3 Red Blood Count 4.67M/MM3 Hemoglobin 14.5GM/DL Hematocrit 42.1% Mean Corpuscular Volume 90.1UM3 Mean Corpuscular Hemoglobin 31.0UUG Mean Corpuscular Hemoglobin Concent 34.4GM/DL RDW Standard Deviation 39.3FL Platelet Count 261T/MM3 Mean Platelet Volume 10.3UM3 Immature Granulocyte % (Auto) 0.2% Neutrophils (%) (Auto) 55.6% Lymphocytes (%) (Auto) 29.0% Monocytes (%) (Auto) 8.4% Eosinophils (%) (Auto) 6.3% Basophils (%) (Auto) 0.5% Absolute Immature Granulocyte (auto 0.02T/MM3 Absolute Neutrophils (auto) 6.1T/MM3 Absolute Lymphocytes (auto) 3.2T/MM3 Absolute Monocytes (auto) 0.9T/MM3 Absolute Eosinophils (auto) 0.7T/MM3 Absolute Basophils (auto) 0.1T/MM3 Turbidity < 20 Sodium Level 144MEQ/L Potassium Level 3.9MEQ/L Chloride Level 105MEQ/L Carbon Dioxide Level 25MEQ/L Anion Gap 14MEQ/L Blood Urea Nitrogen 21.0MG/DL Creatinine 1.3MG/DL Glomerular Filtration Rate Calc 39 BUN/Creatinine Ratio 16RATIO Glucose Level 112MG/DL Calculated Osmolality 281MOSM/KG Calcium Level 10.5MG/DL Total Bilirubin 0.90MG/DL Icterus Index < 2 Aspartate Amino Transf (AST/SGOT) 30U/L Alanine Aminotransferase (ALT/SGPT) 26U/L Alkaline Phosphatase 84U/L Total Protein 6.7G/DL Albumin 3.2G/DL Globulin 3.5G/DL Albumin/Globulin Ratio 0.9RATIO Lipase 64U/L Plasma Lactate 2.4MMOL/L Procalcitonin 0.10NG/ML Chemistry Specimen Hemolysis 19 Arterial Blood pH 7.675 Arterial Blood Partial Pressure CO2 18MMHG Arterial Blood pO2 at Patient Temp 30MMHG Arterial Blood HCO3 21MEQ/L Arterial Blood Total CO2 21MEQ/L Arterial Blood Oxygen Saturation 76.0% Arterial Blood Base Excess 1.0MMOL/L Oxygen Delivery Method (LAB) Room air Blood Gas Oxygen Liter Flow Blood Gas Oxygen Percent Given 21 Blood Gas Vent Rate Blood Gas Tidal Volume ML Urine Collection Type Straight cath Urine Color Yellow Urine Turbidity Clear Urine pH 7.0 Urine Specific Haslett 1.020 Urine Protein 3+ Urine Glucose (UA) Trace Urine Ketones Negative Urine Blood 1+ Urine Nitrite Negative Urine Bilirubin Negative Urine Urobilinogen 0.2EU/DL Urine Leukocyte Esterase Negative Urine RBC 0-1/HPF Urine WBC None seen/HPF Urine Transitional Epithelial Cells 0-1/HPF Urine Bacteria 3+ Urine Culture Indicated Cult not indicated Sepsis Diagnostic Criteria Sepsis Confirmed/Suspected Infection: Yes SIRS Criteria: Pulse >= 90 beats/min Severe Sepsis Lactate >=2.0 mg/dL Assessment & Plan Problems: (1) Sepsis Status: Acute Assessment & Plan: Manifestations of sepsis include the following 1. Questionable Urinary tract infection 2. Leukocytosis- 11.1 3. Tachycardia, 105 4. Elevated venous lactate- 2.4 (2) Abdominal pain Status: Acute (3) Breast cancer Status: Chronic Qualifiers: Laterality: right (4) Bone metastasis Status: Acute Assessment & Plan: Spine (5) Diabetes Status: Chronic Qualifiers: Diabetes mellitus type: type 2 Chronic kidney disease stage: stage 3 ( moderate) (6) Macular degeneration Status: Chronic (7) Anxiety Status: Chronic Plan/Intensity of Service Will admit patient to inpatient status under the care of Dr. Adams for sepsis with questionable urinary tract infection and abdominal pain. Patient given IV fluid boluses in the emergency room and started on antibiotic therapy. Was given cefepime, Levaquin and vancomycin. Blood cultures and urine culture are pending. May to narrow antibiotic therapy Repeat venous lactate as per sepsis protocol at 1300 today Continue with IV fluids, half-normal saline at 100 ML per hour for ongoing hydration. Noted Creatinine is slightly elevated at 1.3, however, this appears to be her baseline Any to work on more aggressive pain control as patient is quite uncomfortable at time of admission. Morphine 2 milligrams IV as needed every 2 hours Reglan and Zofran as needed for nausea control Patient does utilize scheduled Ativan for chronic anxiety. Will add Ativan 0.5 milligrams IV every 4 hours as needed as this may help with her discomfort. Patient reports having significant hemorrhoid irritation from the diarrhea. Will order Anusol suppositories as well as benzocaine topical ointment for discomfort Monitor Accu-Cheks fasting and 2 hours postprandial. He shouldn't is on Lantus 8 units subcutaneous twice a day chronically for diabetes. Will review home medications. At this time. Will place him on hold given patient 's severe abdominal pain and nausea. Question if severity of pain is secondary to Bony Mets? Patient nothing by mouth with ice chips only until symptoms have improved. Up in room with assistance SCDs to bilateral lower extremity for DVT prophylaxis Again, patient requests to be a do not resuscitate and this order is written Will discuss further plan of care with attending, Dr. Adams Code Status Full Code Hospital Course Summary Disclaimer The hospital course summary below is not to be considered part of the above Progress Note. Hospital Course Summary Will admit patient to inpatient status under the care of Dr. Adams for sepsis with questionable urinary tract infection and abdominal pain. Patient given IV fluid boluses in the emergency room and started on antibiotic therapy. Was given cefepime, Levaquin and vancomycin. Blood cultures and urine culture are pending. May to narrow antibiotic therapy Repeat venous lactate as per sepsis protocol at 1300 today Continue with IV fluids, half-normal saline at 100 ML per hour for ongoing hydration. Noted Creatinine is slightly elevated at 1.3, however, this appears to be her baseline Any to work on more aggressive pain control as patient is quite uncomfortable at time of admission. Morphine 2 milligrams IV as needed every 2 hours Reglan and Zofran as needed for nausea control Patient does utilize scheduled Ativan for chronic anxiety. Will add Ativan 0.5 milligrams IV every 4 hours as needed as this may help with her discomfort. Patient reports having significant hemorrhoid irritation from the diarrhea. Will order Anusol suppositories as well as benzocaine topical ointment for discomfort Monitor Accu-Cheks fasting and 2 hours postprandial. He shouldn't is on Lantus 8 units subcutaneous twice a day chronically for diabetes. Will review home medications. At this time. Will place him on hold given patient 's severe abdominal pain and nausea. Question if severity of pain is secondary to Bony Mets? Patient nothing by mouth with ice chips only until symptoms have improved. Up in room with assistance SCDs to bilateral lower extremity for DVT prophylaxis Again, patient requests to be a do not resuscitate and this order is written Will discuss further plan of care with attending, JACOB Hanson MD 10/13/162045: Past Medical History Current Medications Home Meds Reported Medications Tramadol HCl (Tramadol HCl) 50 Mg Tablet, 50 MG PO BID Y for PAIN 10/13/16 Polyethylene Glycol 3350 (Miralax) 119 Gm Powder, 17 G PO DAILY Y for CONSTIPATION 10/13/16 Magnesium Hydroxide (Milk of Magnesia) 400 Mg/5 Ml Oral.susp, 30 ML PO Q8H Y for CONSTIPATION 10/13/16 Acetaminophen (Mapap) 325 Mg Tablet, 650 MG PO Q4H Y for PAIN 10/13/16 Lorazepam (Lorazepam) 0.5 Mg Tablet, 0.5 MG PO Q8H Y for ANXIETY 10/13/16 Bisacodyl (Bisac-Evac) 10 Mg Supp.rect, 10 MG RECTALLY DAILY Y for CONSTIPATION 10/13/16 Cholecalciferol (Vitamin D3) (Vitamin D) 400 Unit Capsule, 400 MG PO DAILY 10/13/16 Tramadol HCl (Tramadol HCl) 50 Mg Tablet, 100 MG PO HS 10/13/16 Calcium Carbonate (Oyster Shell Calcium) 500 Mg Tablet, 500 MG PO BID 10/13/16 Metoprolol Tartrate (Metoprolol Tartrate) 25 Mg Tablet, 12.5 MG PO BIDWM 10/13/16 Bimatoprost (Lumigan) 25 Drop/2.5 Ml Drops, 1 DROP BOTH EYES HS 10/13/16 Multivit-Min/FA/Lutein/Zeaxant (Icaps Mv Tablet) 1 Each Tablet.dr, 1 TAB PO MoWeFr@0800 10/13/16 Multivits-Min/FA/Lycopene/Lut (Centrum Silver Tablet) 1 Each Tablet, 1 TAB PO TuFr@0800 10/13/16 Duloxetine HCl (Cymbalta) 60 Mg Capsule.dr, 60 MG PO DAILY 07/20/14 Rosuvastatin Calcium (Crestor) 10 Mg Tablet, 10 MG PO DAILY 05/24/14 Zolpidem Tartrate (Zolpidem Tartrate) 5 Mg Tablet, 2.5 MG PO HS Y for INSOMNIA 05/24/14 Amlodipine Besylate (Amlodipine Besylate) 10 Mg Tablet, 10 MG PO DAILY 05/24/14 Losartan Potassium (Losartan Potassium) 100 Mg Tablet, 100 MG PO DAILY 05/24/14 Hydrochlorothiazide (Hydrochlorothiazide) 25 Mg Tablet, 25 MG PO DAILY 05/24/14 Insulin Glargine,Hum.rec.anlog (Lantus Solostar) 1 Unit Pen, 8 UNIT SQ BID 05/24/14 Clopidogrel Bisulfate (Clopidogrel) 75 Mg Tablet, 75 MG PO DAILY for 90 Days 05/23/14 Allergies: Coded Allergies: iodine (Unverified Allergy, Unknown, HAS A SENSITIVITY, 10/13/16) Assessment & Plan Problems: (1) Severe sepsis Status: Acute Assessment & Plan: Lactic acid 2.4, MAXIMUM TEMPERATURE 99.9, tachycardia, white count 11.1; underlying infection unclear (2) Abdominal pain Status: Acute (3) Urinary retention Status: Acute (4) Bone metastasis Status: Acute (5) Breast cancer Status: Chronic Qualifiers: Laterality: right (6) Anxiety Status: Chronic (7) Diabetes Status: Chronic Qualifiers: Diabetes mellitus type: type 2 Chronic kidney disease stage: stage 3 ( moderate) (8) Macular degeneration Status: Chronic (9) Diarrhea Status: Chronic (10) Depression Status: Chronic (11) CKD (chronic kidney disease), stage III Status: Chronic Assessment I have independently evaluated and examined this patient. I reviewed the chart, the patient's history, and the DIRECTOR OF PLACEMENT's documented findings as above. We discussed and formulated the assessment and plan as above with additions as below: Patient was somnolent when seen and could provide minimal history but did complain of generalized pain and reported having diarrhea for unclear period of time. Her daughter subsequently provided history of pneumonia 3 weeks ago, long history of fibromyalgia treated with Cymbalta, advanced arthritis, depression since of the patient's in June with recent development of paranoia, and tendency to be somewhat histrionic and dramatic in describing her symptoms. Daughter additionally reports that the patient has been telling staff at her nursing facility that she's been constipated and has subsequently been treated with laxatives despite the fact that she's been having diarrhea. I was unable to get any specifics or review of systems when I evaluated the patient. On examination the patient is somnolent after receiving narcotics. Respirations are nonlabored but breath sounds are diminished although clear. Cardiac rhythm is regular There is diffuse generalized abdominal tenderness, greater in the lower abdomen than upper abdomen; no guarding was present. There is crepitance at the knees bilaterally. Sensation is intact 4 extremities and somnolence precluded formal testing of strength although the patient does move all [address] of the abdomen and pelvis is been reviewed by myself demonstrating blastic lesions in the spine and pelvis, marked distention of the bladder but no acute infectious intra-abdominal pathology. Chest x-ray is also been reviewed and is unremarkable. There is clear evidence of urinary retention but there are no white cells in the urine and I think UTI is unlikely. Likewise there is no evidence of pneumonia or acute intra-abdominal infectious process. Patient was recently treated for pneumonia and diarrhea is described-stool studies have been ordered. Although lactic acid is elevated I'm not convinced that we are dealing with acute infection at this point. Empiric antibiotics have been initiated pending culture results. Further imaging of the thoracic and lumbar spine will be obtained by MRI, given reports of increasing depression with paranoia imaging of the brain will be needed as well and this has been discussed with the patient's daughter. If no evidence of intracranial metastases may benefit from geriatric psychiatry consultation. Plan/Intensity of Service X-rays reviewed by myself, discussed with Dr. Way, old records reviewed, laboratory data reviewed, and discussed with daughter/DPOA. WAGNER STOUT APRN Oct 13, 2016 12:18 JACOB ADAMS MD Oct 13, 2016 20:46
[2016-10-13 14:31] VITALS: BP 148/63; PULSE 85; RESP 18
[2016-10-13] MEDS: 1/2 NS 1,000 ML IV SCH (14:31)
[2016-10-13 14:32] VITALS: TEMP 96.6; O2SAT 95
[2016-10-13] MEDS: CEFEPIME 1 G in NORMAL SALINE 100 ML IV SCH ×2 (15:27→21:31)
--- NOTE | 2016-10-13 15:32 | NUR ---
admit Pt to room at 1115 via cart. Pt A/O x3, son with her. V/S taken and SBP elevated, pt was in extreme pain. V/S taken again after pain under control, SBP down in the 140's. HX taken, SCDs placed. IV site infiltrated at 1230, new site started and IVF resumed. Alvarez placed in ER, to DD with good output.
[2016-10-13 15:50] VITALS: PULSE 82; RESP 16; O2SAT 95
--- NOTE | 2016-10-13 16:37 | DI ---
Indication: ITS.REASON: abdominal pain, diffuse PROCEDURE: CT ABD/PELVIS W/O CONTRAST: Encounter: Initial Comparison: CT neck, chest, abdomen and pelvis dated July 24, 2016 Technique: Axial CT images were performed through the abdomen and pelvis without intravenous contrast. Coronal and sagittal two-dimensional reformats. Automated Exposure Control and Iterative Reconstruction dose reducing techniques were utilized. Findings: Mild atelectasis in the right lower lobe.. Stable left lower lobe pulmonary nodules. The gallbladder, spleen, pancreas and adrenal glands are stable. Liver is unremarkable. New moderate right and mild to moderate left hydronephrosis with significant distention of the bladder no clear obstructing ureteral stones. Numerous pelvic phleboliths near the ureterovesicular junctions however. Uterus is surgically absent. No evidence of a bowel obstruction. The appendix is normal. Bone windows again show multiple sclerotic osseous metastases. Impression: New bladder distention and hydronephrosis suggesting some type of bladder outlet obstruction. There is a preliminary report by [employer]. .
--- NOTE | 2016-10-13 16:48 | DI ---
INDICATION: ITS.REASON: sepsis PROCEDURE: CHEST 2-VIEWS UPRIGHT (PA \T\ LAT) Encounter: Initial COMPARISON: Chest CT dated July 24, 2016 FINDINGS: The lungs are clear without evidence of focal abnormal airspace opacity. There is no pleural effusion or pneumothorax. Left axillary surgical clips. 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 The heart size, mediastinal contours and pulmonary vascularity are within normal limits. Prior CABG. Sclerotic osseous metastatic lesions. IMPRESSION: No acute cardiopulmonary disease. .
--- NOTE | 2016-10-13 18:32 | NUR ---
vac Conformation with medical DPOA that pt has received both Pn 23 and 13 recently.
--- NOTE | 2016-10-13 18:42 | NUR ---
status Pt has been in a lot of pain, PRN MS given 3xs and ativan, pt able to sleep and relax. IVF running, no pain note with second site, pt able to bend her arm now. Alvarez to DD, no BM. Remain on NPO w/ ice chips.
[2016-10-13] MEDS ORDERED: TRAMADOL 50 MG TABLET PO PRN (19:30)
[2016-10-13] MEDS ORDERED: ACETAMINOPHEN 325 MG TABLET PO PRN (19:30)
[2016-10-13] MEDS ORDERED: LORAZEPAM 0.5 MG TABLET PO PRN (19:30)
[2016-10-13] MEDS ORDERED: POLYETHYL.GLYCOL 3350 PACKET 17gm PO PRN (19:30)
[2016-10-13] MEDS: HYDROMORPHONE 2mg/ml INJECTION IV PRN (19:44)
[2016-10-13] MEDS: EYE BOTH EYES SCH (21:31)
[2016-10-13] MEDS: BIMATOPROST 0.01% BOTH EYES SCH (21:31)
[2016-10-13] MEDS: TRAMADOL 50 MG TABLET PO SCH (21:32)
[2016-10-13 23:34] VITALS: BP 129/65; PULSE 86; RESP 16; TEMP 97.7; O2SAT 96
[2016-10-14] MEDS: 1/2 NS 1,000 ML IV SCH ×3 (02:40→17:18)
[2016-10-14] MEDS: CEFEPIME 1 G in NORMAL SALINE 100 ML IV SCH ×2 (03:03→09:30)
[2016-10-14 04:41] LABS: BASOPHILS % (AUTO) 0.4 % (0-2); EOSINOPHILS # (AUTO) 0.8 T/MM3 (0-0.5); EOSINOPHILS % (AUTO) 11.6 % (0-4); HCT - HEMATOCRIT 32.5 % (36-46); HGB - HEMOGLOBIN 10.8 GM/DL (12-16); IMMATURE GRANULOCYTE # (AUTO) 0.03 T/MM3 (0.00-0.03); IMMATURE GRANULOCYTE % (AUTO) 0.4 % (0.0-0.5); LYMPHOCYTES # (AUTO) 1.5 T/MM3 (1-4.8); LYMPHOCYTES % (AUTO) 21.9 % (23-45); MEAN CORPUSCULAR HGB 30.7 UUG (26-34); MEAN CORPUSCULAR HGB CONC(MCHC 33.2 GM/DL (31-37); MEAN CORPUSCULAR VOLUME 92.3 UM3 (80-100); MEAN PLATELET VOLUME 9.9 UM3 (9.4-12.4); MONOCYTES # (AUTO) 0.7 T/MM3 (0-0.8); MONOCYTES % (AUTO) 10.9 % (0-9.0); NEUTROPHILS #(AUTO)-ABSOLUTE 3.7 T/MM3 (1.8-7.7); NEUTROPHILS % (AUTO) 54.8 % (33-66); RED BLOOD COUNT 3.52 M/MM3 (4.00-5.20); WBC - WHITE BLOOD COUNT 6.7 T/MM3 (4.5-11.0)
[2016-10-14 04:54] LABS: ANION GAP 7 MEQ/L (5-15); BUN/CREATININE RATIO 13 RATIO (6-26); CALCIUM 8.4 MG/DL (8.4-10.2); CHLORIDE 112 MEQ/L (98-107); CO2 - CARBON DIOXIDE 23 MEQ/L (22-30); CREATININE 1.3 MG/DL (0.7-1.2); GLOMERULAR FILTRATION RATE 39; GLUCOSE 87 MG/DL (65-110); POTASSIUM 3.9 MEQ/L (3.6-5); SODIUM 142 MEQ/L (134-144)
--- NOTE | 2016-10-14 05:29 | NUR ---
status patient is a&o x3. room air. vss. patient was having severe pain at shift change, reported by the patient to be all over her body at 10/10. prn dilaudid was given followed by scheduled tramadol approximately two hours later. patient has rested well since then. repositions self in bed. herrera patent, draining--urine is cloudy. no bm this shift. no new concerns.
[2016-10-14 08:00] VITALS: BP 150/62; PULSE 79; RESP 17; TEMP 96.6; O2SAT 98
[2016-10-14] MEDS ORDERED: VANCOMYCIN 1,000 MG in NORMAL SALINE 250 ML IV SCH (08:00)
--- NOTE | 2016-10-14 08:00 | NUR ---
update Pts daughter at bedside, she is updated on pts lab results and she is states she is concerned pt is getting antibiotics but may not be septic. Daughter is an ENTERTAINMENT USHER and would like to speak to Dr Adams before given pt any antibiotics today. Will be holding antibiotics until pts daughter is able to speak to . This RN attempted to call earlier this morning but was not able to answer.
[2016-10-14] MEDS: HYDROMORPHONE 2mg/ml INJECTION IV PRN (08:01)
[2016-10-14] MEDS: AMLODIPINE 10 MG TABLET PO SCH (08:07)
[2016-10-14] MEDS: DULOXETINE 60 MG CAPSULE PO SCH (08:07)
[2016-10-14] MEDS: LOSARTAN 100 MG TABLET PO SCH (08:08)
[2016-10-14] MEDS: ROSUVASTATIN 10 MG TABLET PO SCH (08:08)
[2016-10-14] MEDS: LEVOFLOXACIN 750 mg IVPB 750 MG in D5W 150 ML IV SCH (08:45)
--- NOTE | 2016-10-14 08:45 | NUR ---
update Dr Adams is on the floor, she is notified of pts daughter position on antibiotics and that she would like to speak to her, Dr Adams states she will get to her when available later today.
[2016-10-14] MEDS ORDERED: GADOBUTROL 10mMol/10ml INJECTION IV ONE (10:51)
[2016-10-14] MEDS ORDERED: SALINE FLUSH 10ml SYRINGE ONE (10:51)
[2016-10-14] MEDS: LORAZEPAM 2 MG/ML INJECTION IV PRN (10:54)
--- NOTE | 2016-10-14 11:00 | NUR ---
Update Pt to MRI at this time by cart, ativan 0.5mg given to prevent anxiety during study.
--- NOTE | 2016-10-14 12:30 | NUR ---
update pt back from MRI at this time by, pt denies any pain. Will continue to monitor.
[2016-10-14] MEDS ORDERED: BISACODYL 10 MG SUPPOSITORY RECTALLY PRN (15:00)
--- NOTE | 2016-10-14 15:21 | PNPDOC ---
JIA OLIVER MATERIAL CHASER 10/14/16 1459: Subjective Date DATE: 10/14/16 TIME: 14:58 Subjective Rosario stated she is feeling better today, and her daughter agrees. I discussed orders and lab results with the patient's daughter, Alida, who is a nurse practitioner. At this time, she elected to hold antibiotics since a source of infection has never been identified. Rosario's abdominal pain has improved, but she still notes minimal pain to her left lower quadrant. Her daughter reports that she has a history of constipation and at the senior living she takes 4 Colace and 4 senna per day, minimum. She denies any nausea, and she is hungry. She has had good output in her Alvarez catheter. Objective Vital Signs Vital signs Vital Signs Date Time Temp Pulse Resp B/P Pulse Ox O2 Delivery O2 Flow Rate FiO2 10/14/16 09:01 16 10/14/16 08:08 78 150/62 10/14/16 08:00 96.6 98 Room Air Height (Feet): 5 Height (Inches): 3.00 Weight (Kilograms): 67.500 General General Appearance: Alert, Well Developed, No Acute Distress Respiratory (Brief) Respiratory: FOUND: clear all motley, equal bilaterally Cardiovascular (Brief) Cardiac: FOUND: murmur (2/6 systolic), regular rate (occ. extrasystole), regular rhythm Abdomen (Brief) Abdominal: FOUND: BS normo active x4 (hyperactive), soft, tender (minimal tenderness to LLQ) Extremities (Brief) Extremity : Extremity Finding: NOT FOUND: edema (no edema to legs; mild swelling to both arms) Musculoskeletal (Brief) Musculoskeletal: NOT FOUND: tenderness (calves soft) Integumentary (Brief) Integumentary: FOUND: dry, pink, warm Psychiatric (Brief) Psychiatric: FOUND: alert, attentive, normal affect, oriented Laboratory Laboratory Laboratory Tests 10/13/16 08:04 10/14/16 04:00 Laboratory Tests 10/13/16 08:04 10/14/16 04:00 Microbiology Microbiology Microbiology Date/Time Source Procedure Growth Status 10/13/16 08:36 Peripheral/Iv Start Blood Culture - Preliminary NO GROWTH AFTER 24 HOURS Resulted 10/13/16 08:36 Peripheral/Iv Start Blood Culture - Preliminary NO GROWTH AFTER 24 HOURS Resulted Sepsis Diagnostic Criteria Sepsis Confirmed/Suspected Infection: Yes SIRS Criteria: Pulse >= 90 beats/min Severe Sepsis Lactate >=2.0 mg/dL Assessment & Plan Problems: (1) Severe sepsis Status: Resolved Assessment & Plan: Lactic acid 2.4, MAXIMUM TEMPERATURE 99.9, tachycardia, white count 11.1; underlying infection unclear (2) Abdominal pain Status: Acute (3) Urinary retention Status: Acute Assessment & Plan: Alvarez catheter inserted on 10/13/16 (4) Bone metastasis Status: Acute (5) Breast cancer Status: Chronic Qualifiers: Laterality: right (6) Anxiety Status: Chronic (7) Diabetes Status: Chronic Qualifiers: Diabetes mellitus type: type 2 Chronic kidney disease stage: stage 3 ( moderate) (8) Macular degeneration Status: Chronic (9) Diarrhea Status: Chronic (10) Depression Status: Chronic (11) CKD (chronic kidney disease), stage III Status: Chronic Plan/Intensity of Service Abdominal pain has improved. She has no nausea or vomiting. Will advance diet to full liquid with toast and crackers. Reduce rate of IVF. History of constipation, will restart routine bowel medications, which includes Colace and senna, 2 tabs BID. She had thoracic and lumbar spine MRIs today, results are pending. Hydronephrosis and urinary retention: Discussed Alvarez catheter with Alida. Her preference would be to discontinue this before discharge if possible. Possible Sepsis: No sources for pain identified. Following discussion with Alida , will discontinue antibiotics. Blood cultures are negative after 24 hours. Reassess labs tomorrow morning. Consult PT and OT for evaluation tomorrow morning. Rosario uses a walker at baseline. Discussed with Dr. Adams. DVT Prophylaxis: SCD'S Code Status Do Not Resuscitate Hospital Course Summary Disclaimer The hospital course summary below is not to be considered part of the above Progress Note. Hospital Course Summary Will admit patient to inpatient status under the care of Dr. Adams for sepsis with questionable urinary tract infection and abdominal pain. Patient given IV fluid boluses in the emergency room and started on antibiotic therapy. Was given cefepime, Levaquin and vancomycin. Blood cultures and urine culture are pending. May to narrow antibiotic therapy Repeat venous lactate as per sepsis protocol at 1300 today Continue with IV fluids, half-normal saline at 100 ML per hour for ongoing hydration. Noted Creatinine is slightly elevated at 1.3, however, this appears to be her baseline Any to work on more aggressive pain control as patient is quite uncomfortable at time of admission. Morphine 2 milligrams IV as needed every 2 hours Reglan and Zofran as needed for nausea control Patient does utilize scheduled Ativan for chronic anxiety. Will add Ativan 0.5 milligrams IV every 4 hours as needed as this may help with her discomfort. Patient reports having significant hemorrhoid irritation from the diarrhea. Will order Anusol suppositories as well as benzocaine topical ointment for discomfort Monitor Accu-Cheks fasting and 2 hours postprandial. He shouldn't is on Lantus 8 units subcutaneous twice a day chronically for diabetes. Will review home medications. At this time. Will place him on hold given patient 's severe abdominal pain and nausea. Question if severity of pain is secondary to Bony Mets? Patient nothing by mouth with ice chips only until symptoms have improved. Up in room with assistance SCDs to bilateral lower extremity for DVT prophylaxis Again, patient requests to be a do not resuscitate and this order is written Will discuss further plan of care with attending, Dr. Adams 10/14/16 Abdominal pain has improved. She has no nausea or vomiting. Will advance diet to full liquid with toast and crackers. Reduce rate of IVF. History of constipation, will restart routine bowel medications, which includes Colace and senna, 2 tabs BID. She had thoracic and lumbar spine MRIs today, results are pending. Hydronephrosis and urinary retention: Discussed Alvarez catheter with Alida. Her preference would be to discontinue this before discharge if possible. Possible Sepsis: No sources for pain identified. Following discussion with Alida , will discontinue antibiotics. Blood cultures are negative after 24 hours. Reassess labs tomorrow morning. Consult PT and OT for evaluation tomorrow morning. Rosario uses a walker at baseline. JACOB ADAMS MD 10/14/16 3771: Assessment & Plan Assessment I have independently evaluated and examined this patient. I reviewed the chart, the patient's history, and the MATERIAL CHASER's documented findings as above. We discussed and formulated the assessment and plan as above with additions as below: Mrs. Julio is much more alert today than when seen yesterday. She denies significant pain although continues to have some back discomfort. There's been no recurrent fever and she's not had a bowel movement since admission. On examination the patient is able to respond to questions verbally with fluent and appropriate speech. Respirations are nonlabored with clear breath sounds anteriorly. She is able to raise each leg off the bed 8-10 inches and can dorsiflex and plantar flex at the ankles without difficulty today. There is mild tenderness to palpation over the lower abdomen but much less than yesterday. MRIs of the lumbar and thoracic spine were reviewed with the patient's daughter and Dr. Israel. Stable metastatic disease is described in the thoracic spine without cord compression. Metastatic disease also seen in the lumbar spine and pelvis without clear evidence of spinal canal/cord involvement. There is severe multilevel degenerative disease in the lumbar spine with central spinal stenosis and neuroforaminal stenosis greatest from L2-L5. 1/2 blood cultures positive for staph, unclear if coag negative at this time. We 'll discuss further with patient's daughter who has asked to hold antibiotics. Initiate bladder retraining at present. Significant drop in hemoglobin noted- reassess tomorrow but no indication of acute blood loss. Plan/Intensity of Service MRI was reviewed by myself, laboratory data reviewed, discussed with Dr. Israel and patient's daughter. JIA OLIVER APRN Oct 14, 2016 14:59 JACOB ADAMS MD Oct 14, 2016 18:01
[2016-10-14 16:01] VITALS: BP 149/67; PULSE 79; RESP 18; TEMP 97.5; O2SAT 98
--- NOTE | 2016-10-14 16:01 | NUR ---
FALL RISK ASSESSMENT - PHARMACY This patient has a MEDIUM FALL RISK with medications. Patient's Risk Score >3 <6. Medication appropriateness: Patient's antihypertensives are appropriate holding the BP on a good range with dropping too low. I think the major issue is the lorazepam and the fact the patient uses a walker. Recommdations: Care should be used when the patient uses lorazepam. Jordon Masterson, [facility]
--- NOTE | 2016-10-14 16:42 | DI ---
EXAM: MRI LUMBAR SPINE W/WO CONTRAST LOCATION OF DICTATION: [place] HISTORY: ITS.REASON: metastatic breast ca, urinary retention COMPARISON: No prior studies available for comparison. TECHNIQUE: Multiple contiguous axial and sagittal MRI images and sequences were obtained of the lumbar spine with and without contrast. CONTRAST: 10 ml of contrast given Intravenously. FINDINGS: There is preservation of lumbar lordosis. There is no evidence for subluxation . There is no evidence for acute fracture. Vertebral body height is maintained. There are numerous metastases again demonstrated within the lumbar spine and extending to the sacrum as demonstrated on the recent bone scan dated 07/24/2016. The largest metastases overlies the left sacral Ala and S1 vertebral body. There is multilevel degenerative disease with loss of disc space height and signal. Multilevel facet arthropathy is also suggested.. The prevertebral and paraspinal soft tissues are within normal limits . The conus medullaris extends to the L1 level. No abnormal enhancement is demonstrated within the lateral canal or spinal cord. Segmental analysis: At the L1-2 level there is posterior disc osteophyte complex. There is mild to moderate bilateral neuroforaminal stenosis without significant central spinal stenosis. At the L2-3 level there is posterior disc osteophyte complex and facet arthropathy. There is moderate central spinal stenosis and bilateral neuroforaminal stenosis. At the L3-4 level there is posterior disc osteophyte complex and facet arthropathy. There is moderate to marked central spinal stenosis and moderate bilateral neuroforaminal stenosis. At the L4-5 level there is broad-based disc bulge and facet arthropathy. Marked central spinal stenosis and moderate left and mild right neuroforaminal stenosis. At the L5-S1 level there is broad-based disc bulge there is mild central canal and moderate bilateral neuroforaminal stenosis. IMPRESSION: 1. Multifocal osseous metastases involving the lumbar spine and pelvis without clear involvement of the spinal canal/cord or neural foramen. The distribution appears similar when compared to the prior bone scan in June 2016. 2. No evidence for pathologic fracture. No subluxation. 3. Significant multilevel degenerative disease with associated varying degrees of central canal and neuroforaminal stenosis worse at the L2-3 through L4-5 levels as described above. .
--- NOTE | 2016-10-14 16:56 | DI ---
EXAM: MRI THORACIC SPINE W/WO CONTRA LOCATION OF DICTATION: [place] HISTORY: ITS.REASON: known metastatic cancer COMPARISON: Compared to the MRI of the thoracic spine dated 06/09/2014. Technique: Multiple contiguous axial and sagittal MRI images and sequences were obtained of the thoracic spine with and without contrast. FINDINGS: There is preservation of thoracic kyphosis. There is no evidence for subluxation. Multiple osseous metastases are again demonstrated throughout the thoracic spine demonstrating T1 hypointensity and T2 hyperintensity. The largest metastases involving the T6 vertebra is again noted extending to the left posterior elements. This metastases demonstrates persistent enhancement without significant change in appearance 2014 study. There is a metastases involving the superior endplate of T7 which is stable. Metastases spanning the T8-T9 disc space is not significant changed in appearance. The focal T11 metastases is also stable. No definite new thoracic spine metastases are identified. There is no abnormal signal or enhancement within the spinal canal or spinal cord. Multilevel degenerative disease and facet arthropathy is again noted. The prevertebral and paraspinal soft tissues are within normal limits. The metastases involving the left posterior elements at the T6 level results in some prominence of the facet joint though no clear evidence for cortical erosion or extension into the spinal canal or neuroforamen. No obvious soft tissue metastatic component resulting in spinal canal or neuroforaminal stenosis. There is some degenerative related central canal and neuroforaminal narrowing of [id number] degrees at several levels and not significantly changed from the previous study. IMPRESSION: 1. Metastases throughout the thoracic spine are stable in size without significant progression or developing new metastases. The T6 metastases demonstrate persistent enhancement. The remaining metastases do not demonstrate enhancement on today's study. 2. No significant abnormal enhancement within the spinal canal or spinal cord. No evidence for soft tissue metastases and associated central canal/neuroforaminal stenosis. 3. There is multilevel degenerative disease and facet arthropathy similar to the prior study. .
--- NOTE | 2016-10-14 17:14 | CONSPD ---
Consultation Info Date DATE: 10/14/16 TIME: 16:55 Date of Consultation: Oct 14, 2016 Attending Physician: Dr. Adams Reason for Consultation: metastatic breast cancer HPI - Adult Date DATE: 10/14/16 TIME: 16:55 General Chief Complaint: abdominal pain, dysuria History of Present Illness --Stage II Cancer of the left breast in 1982 with 3/ nodes positive. The pathology report revealed infiltrating ductal carcinoma and also tumor showed infiltrative activity involving the blood vessels and lymphatics and mammary fat. --Tamoxifen about 3 years. --Left Chest wall recurrence. 3 to [address] showed a fairly large mass under the pectoralis muscle. --XRT to left chest wall 06/03/1990 to 07/16/1990: 4000 rad with 1000 rad boost. --Tamoxifen 1990 to 1997. --Negative BRCA testing. --New left supraclavicular lymph node breast biopsy proven recurrent breast cancer metastasis. ER positive/OK positive, HER-2/souleymane negative. --04/2014: Bone metastasis on PET. --05/23/14: Biopsy of supraclavicular lymph node. Positive for metastatic breast cancer. ER positive, OK positive, HER-2/souleymane negative. --07/28/14: Faslodex started. --08/11/14: Xgeva started. --02/21/15: Follow up scans. Resolution of a few prior pulmonary nodules and decrease in size of the supraclavicular lymph node mass consistent with response to therapy. Bone lesions changing from lytic to sclerotic probably as response to Xgeva. --05/30/15: Bone scan showing stable bone metastasis. --07/17/16: Right breast cancer 4 o'clock 1.3 cm Grade 1 ER positive, OK negative. HER2 1+ by IHC Negative. Patient well familiar with to me that presented to the emergency room on for evaluation of severe abdominal pain with dysuria. It is reported that patient has been having intermittent episodes of diarrhea for the past 10 days. She has had increasing pain in bed and using tramadol. Over the last 24 hours she has had worsening lower abdominal discomfort accompanied with intermittent nausea. Nursing staff repots that stool is has a "foul" odor. . Patient currently resides at [facility]. Patient was found to have a second breast cancer on the right after having left breast cancer in 1982. She is currently on therapy with faslodex and Xgeva. Last therapy 09/12/16. While in the emergency room today. Further evaluation including laboratory studies and CT scan were obtained. Patient was found have an elevated white count at 11.1, hemoglobin 14.5, hematocrit 42.1, platelet count 261. Sodium is 144, potassium 3.9, BUN 21, creatinine 1.3, glucose 112, calculated osmolality 281. LFTs are normal. Venous lactate was found to be elevated at 2.4, pro calcitonin 0.10. An ABG was obtained showing a pH of 7.674, pCO2 18, pO2 30, bicarbonate 21. Urinalysis did show 3+ protein, trace leuk trase, positive blood with 3+ bacteria. Chest x-ray did not reveal any acute cardiopulmonary findings. CT of the abdomen did reveal overdistention of the bladder, with 1200 ML's of urine. Mild colonic diverticulosis without evidence of diverticulitis, extensive osteoblastic skeletal metastasis. She was given IV fluids in the emergency room. She was then started on triple antibiotic therapy including cefepime, Levaquin and vancomycin. She received 2 doses of Dilaudid and Toradol for pain control. As well as Zofran for nausea. Alvarez catheter was placed to dependent drainage. Given bladder overdistention. She had catheter placed and antibiotics and has improved dramatically overnight. She is feeling much better today.. Past Medical History Past Medical History Diabetes Recurrence of breast cancer with bone metastasis History of blood clot in the spine Macular degeneration with blindness Chronic anxiety CAD PVD 3 cardiac stens GE reflux Surgical History Patient's Surgical History: Left mastectomy Coronary stent 5 or 6 (Dr. Good) Hysterectomy Removal of blood clot in the spine Current Medications Home Meds Reported Medications Tramadol HCl (Tramadol HCl) 50 Mg Tablet, 50 MG PO BID Y for PAIN 10/13/16 Polyethylene Glycol 3350 (Miralax) 119 Gm Powder, 17 G PO DAILY Y for CONSTIPATION 10/13/16 Magnesium Hydroxide (Milk of Magnesia) 400 Mg/5 Ml Oral.susp, 30 ML PO Q8H Y for CONSTIPATION 10/13/16 Acetaminophen (Mapap) 325 Mg Tablet, 650 MG PO Q4H Y for PAIN 10/13/16 Lorazepam (Lorazepam) 0.5 Mg Tablet, 0.5 MG PO Q8H Y for ANXIETY 10/13/16 Bisacodyl (Bisac-Evac) 10 Mg Supp.rect, 10 MG RECTALLY DAILY Y for CONSTIPATION 10/13/16 Cholecalciferol (Vitamin D3) (Vitamin D) 400 Unit Capsule, 400 MG PO DAILY 10/13/16 Tramadol HCl (Tramadol HCl) 50 Mg Tablet, 100 MG PO HS 10/13/16 Calcium Carbonate (Oyster Shell Calcium) 500 Mg Tablet, 500 MG PO BID 10/13/16 Metoprolol Tartrate (Metoprolol Tartrate) 25 Mg Tablet, 12.5 MG PO BIDWM 10/13/16 Bimatoprost (Lumigan) 25 Drop/2.5 Ml Drops, 1 DROP BOTH EYES HS 10/13/16 Multivit-Min/FA/Lutein/Zeaxant (Icaps Mv Tablet) 1 Each Tablet.dr, 1 TAB PO MoWeFr@0800 10/13/16 Multivits-Min/FA/Lycopene/Lut (Centrum Silver Tablet) 1 Each Tablet, 1 TAB PO TuFr@0800 10/13/16 Duloxetine HCl (Cymbalta) 60 Mg Capsule.dr, 60 MG PO DAILY 07/20/14 Rosuvastatin Calcium (Crestor) 10 Mg Tablet, 10 MG PO DAILY 05/24/14 Zolpidem Tartrate (Zolpidem Tartrate) 5 Mg Tablet, 2.5 MG PO HS Y for INSOMNIA 05/24/14 Amlodipine Besylate (Amlodipine Besylate) 10 Mg Tablet, 10 MG PO DAILY 05/24/14 Losartan Potassium (Losartan Potassium) 100 Mg Tablet, 100 MG PO DAILY 05/24/14 Hydrochlorothiazide (Hydrochlorothiazide) 25 Mg Tablet, 25 MG PO DAILY 05/24/14 Insulin Glargine,Hum.rec.anlog (Lantus Solostar) 1 Unit Pen, 8 UNIT SQ BID 05/24/14 Clopidogrel Bisulfate (Clopidogrel) 75 Mg Tablet, 75 MG PO DAILY for 90 Days 05/23/14 Allergies: Coded Allergies: iodine (Unverified Allergy, Unknown, HAS A SENSITIVITY, 10/13/16) Family History Family History: Father-cancer lung Mother-ID, diabetes Father had 6 siblings, 3 brothers 3 sisters. 4 head cancer one with pancreatic, one with lung, one with breast, one with prostate paternal aunt had 2 daughters Social History Smoking Status: Never smoker Substance Use Type: does not use Marital Status: Housing: [facility] Advance Directives: Yes DNR, Yes DPOA for Healthcare Only (janell christy) Review of Systems Constitutional: REPORTS: anorexia, fatigue, weight loss Eyes General: REPORTS: dryness Lids/Accessories: DENIES: erythema ENMT Mouth/Throat: REPORTS: dry mouth, DENIES: sores Cardiovascular DENIES: chest pain Rhythm/Rate: DENIES: palpitations Pulmonary Respiratory: DENIES: cough, dyspnea, tachypnea GI Upper Abdomen: nausea, pain Lower Abdomen: diarrhea General: dysuria, frequency Musculoskeletal General: joint pain, pain Integumentary Skin: DENIES: rash Hair: DENIES: alopecia Neurological General: weakness, DENIES: numbness Psychiatric Psychiatric: depression Hematologic/Lymphatic DENIES: anemia, easy bruising Physical Exam General General Nourishment: thin, apparent age, adult Vital Signs Vital Signs Date Time Temp Pulse Resp B/P Pulse Ox O2 Delivery O2 Flow Rate FiO2 10/14/16 16:01 97.5 79 18 149/67 98 Room Air Height (Feet): 5 Height (Inches): 3.00 Eyes Brief: FOUND: EOMI, PERRL, NOT FOUND: scleral icterus ENMT Brief: FOUND: mucosa moist, NOT FOUND: lesions Neck Brief: NOT FOUND: adenopathy Respiratory Brief: FOUND: clear all motley, equal bilaterally Cardiovascular (brief) Cardiac Brief: FOUND: regular rate, regular rhythm, NOT FOUND: murmur Abdomen (brief) Abdominal Brief: FOUND: distended (mildly), soft, tender, NOT FOUND: hepatosplenomegaly Lymphatic (brief) Lymphatic Brief: NOT FOUND: adenopathy Musculoskeletal (brief) Musculoskeletal Brief: NOT FOUND: spasm, tenderness Integumentary (brief) Integumentary Brief: FOUND: dry, warm Neurologic (brief) Neurological Brief: FOUND: cranial 2-12 intact, motor (moves all fours well) Neurologic RN Documented GCS Eye Opening: Verbal: Motor: Total: Laboratory Item Value Date Time White Blood Count 6.7 T/MM3 10/14/16 0400 Hemoglobin 10.8 GM/DL L # 10/14/16 0400 Platelet Count 193 T/MM3 10/14/16 0400 Creatinine 1.3 MG/DL H 10/14/16 0400 Calcium Level 10.5 MG/DL H 10/13/16 0804 Lipase 64 U/L 10/13/16 0804 Total Bilirubin 0.90 MG/DL 10/13/16 0804 Urine Protein 3+ A 10/13/16 0933 Urine Blood 1+ A 10/13/16 0933 Urine Bacteria 3+ H 10/13/16 0933 Laboratory Tests Test 10/13/16 08:04 10/13/16 09:08 10/13/16 09:33 10/13/16 13:24 White Blood Count 11.1T/MM3 Red Blood Count 4.67M/MM3 Hemoglobin 14.5GM/DL Hematocrit 42.1% Mean Corpuscular Volume 90.1UM3 Mean Corpuscular Hemoglobin 31.0UUG Mean Corpuscular Hemoglobin Concent 34.4GM/DL RDW Standard Deviation 39.3FL Platelet Count 261T/MM3 Mean Platelet Volume 10.3UM3 Immature Granulocyte % (Auto) 0.2% Neutrophils (%) (Auto) 55.6% Lymphocytes (%) (Auto) 29.0% Monocytes (%) (Auto) 8.4% Eosinophils (%) (Auto) 6.3% Basophils (%) (Auto) 0.5% Absolute Immature Granulocyte (auto 0.02T/MM3 Absolute Neutrophils (auto) 6.1T/MM3 Absolute Lymphocytes (auto) 3.2T/MM3 Absolute Monocytes (auto) 0.9T/MM3 Absolute Eosinophils (auto) 0.7T/MM3 Absolute Basophils (auto) 0.1T/MM3 Turbidity < 20 Sodium Level 144MEQ/L Potassium Level 3.9MEQ/L Chloride Level 105MEQ/L Carbon Dioxide Level 25MEQ/L Anion Gap 14MEQ/L Blood Urea Nitrogen 21.0MG/DL Creatinine 1.3MG/DL Glomerular Filtration Rate Calc 39 BUN/Creatinine Ratio 16RATIO Glucose Level 112MG/DL Calculated Osmolality 281MOSM/KG Calcium Level 10.5MG/DL Total Bilirubin 0.90MG/DL Icterus Index < 2 Aspartate Amino Transf (AST/SGOT) 30U/L Alanine Aminotransferase (ALT/SGPT) 26U/L Alkaline Phosphatase 84U/L Total Protein 6.7G/DL Albumin 3.2G/DL Globulin 3.5G/DL Albumin/Globulin Ratio 0.9RATIO Lipase 64U/L Plasma Lactate 2.4MMOL/L 1.1MMOL/L Procalcitonin 0.10NG/ML Chemistry Specimen Hemolysis 19 Arterial Blood pH 7.675 Arterial Blood Partial Pressure CO2 18MMHG Arterial Blood pO2 at Patient Temp 30MMHG Arterial Blood HCO3 21MEQ/L Arterial Blood Total CO2 21MEQ/L Arterial Blood Oxygen Saturation 76.0% Arterial Blood Base Excess 1.0MMOL/L Oxygen Delivery Method (LAB) Room air Blood Gas Oxygen Liter Flow Blood Gas Oxygen Percent Given 21 Blood Gas Vent Rate Blood Gas Tidal Volume ML Urine Collection Type Straight cath Urine Color Yellow Urine Turbidity Clear Urine pH 7.0 Urine Specific Nicholls 1.020 Urine Protein 3+ Urine Glucose (UA) Trace Urine Ketones Negative Urine Blood 1+ Urine Nitrite Negative Urine Bilirubin Negative Urine Urobilinogen 0.2EU/DL Urine Leukocyte Esterase Negative Urine RBC 0-1/HPF Urine WBC None seen/HPF Urine Transitional Epithelial Cells 0-1/HPF Urine Bacteria 3+ Urine Culture Indicated Cult not indicated Test 10/13/16 17:53 10/13/16 19:56 10/14/16 04:00 10/14/16 05:56 Glucometer 92mg/dL 113mg/dL 84mg/dL White Blood Count 6.7T/MM3 Red Blood Count 3.52M/MM3 Hemoglobin 10.8GM/DL Hematocrit 32.5% Mean Corpuscular Volume 92.3UM3 Mean Corpuscular Hemoglobin 30.7UUG Mean Corpuscular Hemoglobin Concent 33.2GM/DL RDW Standard Deviation 40.3FL Platelet Count 193T/MM3 Mean Platelet Volume 9.9UM3 Immature Granulocyte % (Auto) 0.4% Neutrophils (%) (Auto) 54.8% Lymphocytes (%) (Auto) 21.9% Monocytes (%) (Auto) 10.9% Eosinophils (%) (Auto) 11.6% Basophils (%) (Auto) 0.4% Absolute Immature Granulocyte (auto 0.03T/MM3 Absolute Neutrophils (auto) 3.7T/MM3 Absolute Lymphocytes (auto) 1.5T/MM3 Absolute Monocytes (auto) 0.7T/MM3 Absolute Eosinophils (auto) 0.8T/MM3 Absolute Basophils (auto) 0.0T/MM3 Turbidity < 20 Sodium Level 142MEQ/L Potassium Level 3.9MEQ/L Chloride Level 112MEQ/L Carbon Dioxide Level 23MEQ/L Anion Gap 7MEQ/L Blood Urea Nitrogen 17.0MG/DL Creatinine 1.3MG/DL Glomerular Filtration Rate Calc 39 BUN/Creatinine Ratio 13RATIO Glucose Level 87MG/DL Calculated Osmolality 274MOSM/KG Calcium Level 8.4MG/DL Icterus Index < 2 Chemistry Specimen Hemolysis < 15 Test 10/14/16 10:24 Glucometer 83mg/dL Radiology MRI of the thoracic spine reviewed with Dr. Lynn. There is metastatic disease at T6-T9 with epidural tumor extension in the T6 area. It does not cause spinal cord compression. It does appear to compress the left nerve roots. MRI of the lumbar spine appears to have spinal stenosis with bulging disks. CT scan of the chest was reviewed and had the following findings. Definite bladder distention of uncertain etiology along with mild hydronephrosis secondary to bladder distention [place], [place] [address] Name: ELENI BERRY V Unit #: [id number] Signed Page 1 of 1 DIAGNOSTIC IMAGING REPORT Report #: [id number] Dictated By: EVA MERAZ MD 10/13/16 6530 Signed date/time: 10/13/16 163 Transcribed By: SHIRLENE BLACKWELL 10/13/16 cc: JACOB ADAMS MD [address] [place], [place] [address] [phone] Dictated By: EVA MERAZ MD 10/13/161626 Signed date/time: 10/13/161633 Transcribed By: TRANSCRIPT RADWARE 10/13/161627 cc: JACOB ADAMS MD Name: ELENI BERRY V Unit #: [id number] : 1930 Sex: F Loc / Svc: MED 162 Admit Date: 10/13/16 Signed Page 1 of 1 Printed: [~ rep prt dt last] [~ rep prt tm last] Discharge Date: DIAGNOSTIC IMAGING REPORT Report #: [id number] [~ rep ct labl] DATE OF EXAM: 10/13/16 ORDERING DOCTOR: EDWARD JOYNER MD TYPE OF EXAM: CT ABD/PELVIS W/O CONTRAST REASON FOR EXAM: abdominal pain, diffuse Indication: ITS.REASON: abdominal pain, diffuse PROCEDURE: CT ABD/PELVIS W/O CONTRAST: Encounter: Initial Comparison: CT neck, chest, abdomen and pelvis dated July 24, 2016 Technique: Axial CT images were performed through the abdomen and pelvis without intravenous contrast. Coronal and sagittal two-dimensional reformats. Automated Exposure Control and Iterative Reconstruction dose reducing techniques were utilized. Findings: Mild atelectasis in the right lower lobe.. Stable left lower lobe pulmonary nodules. The gallbladder, spleen, pancreas and adrenal glands are stable. Liver is unremarkable. New moderate right and mild to moderate left hydronephrosis with significant distention of the bladder no clear obstructing ureteral stones. Numerous pelvic phleboliths near the ureterovesicular junctions however. Uterus is surgically absent. No evidence of a bowel obstruction. The appendix is normal. Bone windows again show multiple sclerotic osseous metastases. Impression: New bladder distention and hydronephrosis suggesting some type of bladder outlet obstruction. There is a preliminary report by [facility]. . Impression/Recommendation Impression Metastatic breast cancer involving bone and supraclavicular area currently on Faslodex and Xgeva with fairly stable disease with slight increase in tumor markers recently. MRI shows the bone lesions appear fairly stable since 2013 although there appears to be slightly more epidural extension and would consider possible palliative radiation therapy. I do not feel as this is contributing to her present urinary retention. We'll check CEA and [id number] 2. Urinary retention probably secondary to tramadol that has a 1-5% incidence of urinary retention. 3. Recent pneumonia with confusion related to Levaquin 4. Peripheral vascular disease and coronary artery disease currently stable 5. Macular degeneration with blindness 6. Diabetes mellitus 7. Chronic renal insufficiency 8. Hypercalcemia with hyperparathyroidism probably exacerbated by hydrochlorothiazide. Calcium has been managable between 10 and 11. 9. Elevated tumor markers question Paul. Draw tumor markers today Recommendation Consider radiation therapy to thoracic spine Evaluate tumor markers Follow-up in the office in the next 10 days for continuation of Faslodex and Xgeva MAGDALENA RICHARDSON Oct 14, 2016 16:59
[2016-10-14] MEDS ORDERED: CEFEPIME 1 G in NORMAL SALINE 100 ML IV SCH (17:30)
--- NOTE | 2016-10-14 18:00 | NUR ---
UPDATE ON BLADDER TRAINING CATHETER CLAMPED BY UZMA HERNANDEZ
--- NOTE | 2016-10-14 18:35 | NUR ---
UPDATE/END OF SHIFT SUMMARY PT WENT HAD AN MRI DONE TODAY. RESULTS WERE DISCUSSED WITH PT AND DAUGHTER, THEY WILL BE DECIDING ON WHETHER OR NOT RADIATION THERAPY WILL BE CHOSEN A TREATMENT. PTS BLOOD CULTURE WAS POSITIVE FOR STAPH TODAY, THUS PT WILL BE STARTED ON VANCOMYCIN AGAIN. PT WAS ABLE TO GET UP WITH ASSISTANCE X1 TO THE RESTROOM ONCE TODAY. DID NOT HAVE A BM TODAY. BLADDER TRAINING STARTED AT 1800. SHE WAS GIVEN 1 DOSE OF DILAUDID THIS MORNING TO TREAT HER PAIN, PT HAS NOT COMPLAINED OF PAIN EVER SINCE. WILL CONTINUE TO MONITOR.
[2016-10-14] MEDS: SENNOSIDES 8.6 MG TABLET PO SCH (21:27)
[2016-10-14] MEDS: DOCUSATE SODIUM 100 MG CAPSULE PO SCH (21:27)
[2016-10-14] MEDS: BIMATOPROST 0.01% BOTH EYES SCH (21:28)
[2016-10-14] MEDS: EYE BOTH EYES SCH (21:28)
[2016-10-14] MEDS: TRAMADOL 50 MG TABLET PO SCH (21:28)
[2016-10-14 23:45] VITALS: BP 141/65; PULSE 67; RESP 16; TEMP 97.7; O2SAT 100
[2016-10-15 05:10] LABS: BASOPHILS % (AUTO) 0.3 % (0-2); EOSINOPHILS % (AUTO) 13.8 % (0-4); HCT - HEMATOCRIT 30.5 % (36-46); HGB - HEMOGLOBIN 10.3 GM/DL (12-16); IMMATURE GRANULOCYTE # (AUTO) 0.02 T/MM3 (0.00-0.03); IMMATURE GRANULOCYTE % (AUTO) 0.3 % (0.0-0.5); LYMPHOCYTES # (AUTO) 1.2 T/MM3 (1-4.8); LYMPHOCYTES % (AUTO) 17.7 % (23-45); MEAN CORPUSCULAR HGB 31.2 UUG (26-34); MEAN CORPUSCULAR HGB CONC(MCHC 33.8 GM/DL (31-37); MEAN CORPUSCULAR VOLUME 92.4 UM3 (80-100); MEAN PLATELET VOLUME 9.9 UM3 (9.4-12.4); MONOCYTES # (AUTO) 0.7 T/MM3 (0-0.8); MONOCYTES % (AUTO) 9.5 % (0-9.0); NEUTROPHILS #(AUTO)-ABSOLUTE 4.1 T/MM3 (1.8-7.7); NEUTROPHILS % (AUTO) 58.4 % (33-66)
[2016-10-15 05:17] LABS: ANION GAP 5 MEQ/L (5-15); BUN/CREATININE RATIO 11 RATIO (6-26); CALCIUM 8.1 MG/DL (8.4-10.2); CHLORIDE 110 MEQ/L (98-107); CO2 - CARBON DIOXIDE 23 MEQ/L (22-30); CREATININE 1.2 MG/DL (0.7-1.2); GLOMERULAR FILTRATION RATE 43; GLUCOSE 109 MG/DL (65-110); LDH 324 U/L (313-618); POTASSIUM 3.6 MEQ/L (3.6-5); SODIUM 138 MEQ/L (134-144)
[2016-10-15] MEDS ORDERED: VANCOMYCIN 1.75 G in NORMAL SALINE 500 ML IV ONE (06:30)
--- NOTE | 2016-10-15 07:08 | NUR ---
SUMMARY PT SLEPT WELL THIS SHIFT. ALERT WITH CONFUSION. DENIED ANY PAIN. PT REPOSITION SELF. CONTINUE ON BLADDER TRAINING PER THE ORDER. PT TRIES TO GET OUT OF BED WHEN SHE FEEL THE BLADDER IS FULL. NO PRN THIS SHIFT. PT VSS. PT WAS EDUCATED ABOUT THE CALL LIGHT USE BUT SHE NEED REINFORCEMENT. SCD'S IN PLACE. CONTINUES ON IV FLUIDS THAT SHE TOLERATES WELL.
[2016-10-15 07:36] LABS: CA 27-29 CALCULATED 43.47 U/ML (0-37.7)
[2016-10-15 08:00] VITALS: BP 152/69; PULSE 60; PULSE 70; RESP 18; TEMP 99.4; O2SAT 99
[2016-10-15] MEDS ORDERED: LEVOFLOXACIN 750 mg IVPB 750 MG in D5W 150 ML IV SCH (09:00)
[2016-10-15] MEDS: AMLODIPINE 10 MG TABLET PO SCH (09:22)
[2016-10-15] MEDS: SENNOSIDES 8.6 MG TABLET PO SCH ×2 (09:22→21:53)
[2016-10-15] MEDS: CLOPIDOGREL 75 MG TABLET PO SCH (09:22)
[2016-10-15] MEDS: DOCUSATE SODIUM 100 MG CAPSULE PO SCH ×2 (09:23→21:53)
[2016-10-15] MEDS: LOSARTAN 100 MG TABLET PO SCH (09:24)
[2016-10-15] MEDS: DULOXETINE 60 MG CAPSULE PO SCH (09:24)
[2016-10-15] MEDS: ROSUVASTATIN 10 MG TABLET PO SCH (09:25)
[2016-10-15] MEDS ORDERED: BISACODYL 10 MG SUPPOSITORY RECTALLY PRN (10:15)
--- NOTE | 2016-10-15 10:16 | PNPDOC ---
JIA OLIVER SCREEN MAKING SUPERVISOR 10/15/16 1003: Subjective Date DATE: 10/15/16 TIME: 10:00 Subjective Rosario was seen before breakfast. She didn't recall meeting me yesterday. She complains of being "so tired". Her stomach is still a little upset, but is better. She states the catheter is uncomfortable and would like it out. She denies nausea or vomiting. She denies any chest pain or problems breathing. Objective Vital Signs Vital signs Vital Signs Date Time Temp Pulse Resp B/P Pulse Ox O2 Delivery O2 Flow Rate FiO2 10/15/16 09:24 70 152/69 10/15/16 08:00 18 10/15/16 08:00 99.4 99 Room Air Height (Feet): 5 Height (Inches): 3.00 Weight (Kilograms): 68.500 General General Appearance: Alert, Well Nourished, Well Developed, Confused, No Acute Distress Eyes (Brief) Eyes: FOUND: PERRL, NOT FOUND: scleral icterus ENMT (Brief) ENMT: FOUND: mucosa moist, NOT FOUND: pharnyx erythema Respiratory (Brief) Respiratory: FOUND: clear all motley, equal bilaterally Cardiovascular (Brief) Cardiac: FOUND: regular rate, regular rhythm Abdomen (Brief) Abdominal: FOUND: BS normo active x4, soft, NOT FOUND: distended, tender (Brief) Comments Alvarez to DD Extremities (Brief) Extremity : Side: Bilateral Extremity: leg Extremity Finding: NOT FOUND: edema Musculoskeletal (Brief) Musculoskeletal: NOT FOUND: deformity, tenderness Integumentary (Brief) Integumentary: FOUND: dry, pink, warm Psychiatric (Brief) Psychiatric: FOUND: alert, attentive, normal affect, oriented Laboratory Laboratory Laboratory Tests 10/14/16 04:00 10/15/16 04:24 Laboratory Tests 10/14/16 04:00 10/15/16 04:24 Microbiology Microbiology Microbiology Date/Time Source Procedure Growth Status 10/13/16 08:36 Peripheral/Iv Start Blood Culture - Preliminary NO GROWTH AFTER 48 HOURS Resulted 10/13/16 08:36 Peripheral/Iv Start Gram Stain - Final Resulted 10/13/16 08:36 Blood Culture - Preliminary Staphylococcus Resulted Sepsis Diagnostic Criteria Sepsis Confirmed/Suspected Infection: Yes SIRS Criteria: Pulse >= 90 beats/min Severe Sepsis Lactate >=2.0 mg/dL Assessment & Plan Problems: (1) Severe sepsis Status: Resolved Assessment & Plan: Lactic acid 2.4, MAXIMUM TEMPERATURE 99.9, tachycardia, white count 11.1 Growth in anaerobic blood culture bottle on 10/14/16 (2) Normocytic anemia Status: Acute (3) Urinary retention Status: Acute Assessment & Plan: Alvarez catheter inserted on 10/13/16 (4) Abdominal pain Status: Resolved (5) Bone metastasis Status: Chronic (6) Breast cancer Status: Chronic Qualifiers: Laterality: right (7) Anxiety Status: Chronic (8) Diabetes Status: Chronic Qualifiers: Diabetes mellitus type: type 2 Chronic kidney disease stage: stage 3 ( moderate) (9) Macular degeneration Status: Chronic (10) Diarrhea Status: Chronic (11) Depression Status: Chronic (12) CKD (chronic kidney disease), stage III Status: Chronic Assessment Plan/Intensity of Service Vancomycin was restarted yesterday afternoon after staphylococcus growth was seen in the anaerobic blood culture bottle. Other 2 antibiotics have not been restarted. Abdominal pain improving, nontender this morning. She has not had a bowel movement since admission & her routine bowel regimen was started yesterday. Urinary retention - continue bladder retraining with Alvarez. Normocytic anemia, acute - hgb decreased to 10.3 today. Will assess iron studies and check stool for occult blood. IVF: oral intake starting to improve - may be able to dc IVF soon. PT/OT evaluation ordered for today. DVT Prophylaxis: SCD'S Code Status Do Not Resuscitate Hospital Course Summary Disclaimer The hospital course summary below is not to be considered part of the above Progress Note. Hospital Course Summary Will admit patient to inpatient status under the care of Dr. Adams for sepsis with questionable urinary tract infection and abdominal pain. Patient given IV fluid boluses in the emergency room and started on antibiotic therapy. Was given cefepime, Levaquin and vancomycin. Blood cultures and urine culture are pending. May to narrow antibiotic therapy Repeat venous lactate as per sepsis protocol at 1300 today Continue with IV fluids, half-normal saline at 100 ML per hour for ongoing hydration. Noted Creatinine is slightly elevated at 1.3, however, this appears to be her baseline Any to work on more aggressive pain control as patient is quite uncomfortable at time of admission. Morphine 2 milligrams IV as needed every 2 hours Reglan and Zofran as needed for nausea control Patient does utilize scheduled Ativan for chronic anxiety. Will add Ativan 0.5 milligrams IV every 4 hours as needed as this may help with her discomfort. Patient reports having significant hemorrhoid irritation from the diarrhea. Will order Anusol suppositories as well as benzocaine topical ointment for discomfort Monitor Accu-Cheks fasting and 2 hours postprandial. He shouldn't is on Lantus 8 units subcutaneous twice a day chronically for diabetes. Will review home medications. At this time. Will place him on hold given patient 's severe abdominal pain and nausea. Question if severity of pain is secondary to Bony Mets? Patient nothing by mouth with ice chips only until symptoms have improved. Up in room with assistance SCDs to bilateral lower extremity for DVT prophylaxis Again, patient requests to be a do not resuscitate and this order is written Will discuss further plan of care with attending, Dr. Adams 10/14/16 Abdominal pain has improved. She has no nausea or vomiting. Will advance diet to full liquid with toast and crackers. Reduce rate of IVF. History of constipation, will restart routine bowel medications, which includes Colace and senna, 2 tabs BID. She had thoracic and lumbar spine MRIs today, results are pending. Hydronephrosis and urinary retention: Discussed Alvarez catheter with Alida. Her preference would be to discontinue this before discharge if possible. Possible Sepsis: No sources for pain identified. Following discussion with Alida , will discontinue antibiotics. Blood cultures are negative after 24 hours. Reassess labs tomorrow morning. Consult PT and OT for evaluation tomorrow morning. Rosario uses a walker at baseline. MRIs of the lumbar and thoracic spine were reviewed with the patient's daughter and Dr. Israel. Stable metastatic disease is described in the thoracic spine without cord compression. Metastatic disease also seen in the lumbar spine and pelvis without clear evidence of spinal canal/cord involvement. There is severe multilevel degenerative disease in the lumbar spine with central spinal stenosis and neuroforaminal stenosis greatest from L2-L5. 1/2 blood cultures positive for staph, unclear if coag negative at this time. Initiate bladder retraining at present. Significant drop in hemoglobin noted- reassess tomorrow but no indication of acute blood loss. 10/15/16 Vancomycin was restarted yesterday afternoon after staphylococcus growth was seen in the anaerobic blood culture bottle. Other 2 antibiotics have not been restarted. Abdominal pain improving, nontender this morning. She has not had a bowel movement since admission & her routine bowel regimen was started yesterday. Urinary retention - continue bladder retraining with Alvarez. Normocytic anemia, acute - hgb decreased to 10.3 today. Will assess iron studies and check stool for occult blood. IVF: oral intake starting to improve - may be able to dc IVF soon. JACOB ADAMS MD 10/15/16 1540: Assessment & Plan Assessment I have independently evaluated and examined this patient. I reviewed the chart, the patient's history, and the SCREEN MAKING SUPERVISOR's documented findings as above. We discussed and formulated the assessment and plan as above with additions as below: Mrs. Julio was resting when seen. She reports awareness of her bladder and feeling like she needs to urinate when the Alvarez is clamped and wants to have the catheter removed as soon as possible. She denied pain but seemed more lethargic today than yesterday. There is still mild discomfort on palpation in the lower abdomen without guarding. Respirations are nonlabored but inspiratory effort is poor; anterior breath sounds are clear. Patient reported she was in [place] and then rambled about some location that I couldn't make out and advised me that the year is 1916. Staph identified by [employer] in the anaerobic bottle of 1/2 blood cultures. Not being cultured out at present-likely contaminant. If no actual growth tomorrow we'll discontinue antibiotics. CEA normal, CA 27-29 modestly elevated at 43.47. Will try discontinuation of Alvarez in a.m., tramadol discontinued due association with urinary retention. Fluid infusion rate decreased. Plan/Intensity of Service Discussed with microbiology, case management, and nursing. Laboratory data reviewed. JIA OLIVER APRN Oct 15, 2016 10:03 JACOB ADAMS MD Oct 15, 2016 15:40
--- NOTE | 2016-10-15 11:54 | NUR ---
JACK SANTIAGO VISITED PT. CM EXPLAINED ROLE AND PROVIDED CONTACT INFORMATION. PT PLANS TO RETURN TO [facility] AT [place] [facility] [place] CM SPOKE WITH NURSE JAZZMINE FROM [facility] AND GAVE UPDATE ON PT STATUS. CM LEFT MESSAGE FOR DENISE HYDROLOGICAL TECHNICAL OFFICER REGARDING ANTICIPATED D/C. CM ENCOURAGED DENISE TO CALL JACK IF NEEDS ARISE.
[2016-10-15] MEDS: 1/2 NS 1,000 ML IV SCH ×2 (13:45→14:51)
[2016-10-15 15:35] VITALS: BP 142/49; PULSE 66; RESP 20; TEMP 98.7; O2SAT 97
--- NOTE | 2016-10-15 17:40 | NUR ---
STATUS pt is alert and oriented. at times shows some confusion, easily reoriented. pt has denied pain. pt gets up with assist X1 using the gaitbelt. pt worked with PT this shift. pt sat in the chair to eat meals. pt is on room air. family is present. pt is resting in bed. call light within reach.
[2016-10-15 19:57] VITALS: RESP 18
[2016-10-15] MEDS: EYE BOTH EYES SCH (21:53)
[2016-10-15] MEDS: BIMATOPROST 0.01% BOTH EYES SCH (21:53)
[2016-10-15 23:36] VITALS: BP 136/58; PULSE 65; RESP 20; TEMP 98.6; O2SAT 97
[2016-10-16 01:07] LABS: TOTAL IRON BINDING CAPACITY 172 UG/DL (261-497)
[2016-10-16] MEDS: 1/2 NS 1,000 ML IV SCH ×2 (02:39→13:24)
[2016-10-16 02:48] LABS: IRON 26 UG/DL (37-170)
[2016-10-16 03:28] LABS: FERRITIN 236 NG/ML (11-264)
[2016-10-16 03:58] LABS: FOLATE > 20.0 NG/ML (2.76-20)
[2016-10-16 05:35] LABS: BASOPHILS % (AUTO) 0.4 % (0-2); EOSINOPHILS # (AUTO) 0.9 T/MM3 (0-0.5); HCT - HEMATOCRIT 29.6 % (36-46); HGB - HEMOGLOBIN 10.2 GM/DL (12-16); IMMATURE GRANULOCYTE # (AUTO) 0.02 T/MM3 (0.00-0.03); IMMATURE GRANULOCYTE % (AUTO) 0.3 % (0.0-0.5); LYMPHOCYTES # (AUTO) 1.4 T/MM3 (1-4.8); LYMPHOCYTES % (AUTO) 20.3 % (23-45); MEAN CORPUSCULAR HGB 30.9 UUG (26-34); MEAN CORPUSCULAR HGB CONC(MCHC 34.5 GM/DL (31-37); MEAN CORPUSCULAR VOLUME 89.7 UM3 (80-100); MEAN PLATELET VOLUME 9.8 UM3 (9.4-12.4); MONOCYTES # (AUTO) 0.7 T/MM3 (0-0.8); MONOCYTES % (AUTO) 9.8 % (0-9.0); NEUTROPHILS #(AUTO)-ABSOLUTE 3.9 T/MM3 (1.8-7.7); NEUTROPHILS % (AUTO) 56.2 % (33-66); WBC - WHITE BLOOD COUNT 6.9 T/MM3 (4.5-11.0)
[2016-10-16 05:44] LABS: ANION GAP 8 MEQ/L (5-15); BUN/CREATININE RATIO 10 RATIO (6-26); CHLORIDE 112 MEQ/L (98-107); CO2 - CARBON DIOXIDE 21 MEQ/L (22-30); GLOMERULAR FILTRATION RATE 53; GLUCOSE 136 MG/DL (65-110); POTASSIUM 3.5 MEQ/L (3.6-5); SODIUM 141 MEQ/L (134-144)
--- NOTE | 2016-10-16 06:03 | NUR ---
Status Pt Ox3 in evening with some confusion at times. VSS. Denied pain, N/V. IVF running as charted. Bladder retraining in process. Pt stated that she did not feel urge to void during the night. Adequate urine output. Pt attempted to bail out of bed once during night. Bed alarm on and call light within reach. Call light education provided. Will continue to monitor.
[2016-10-16] MEDS: VANCOMYCIN 1 G in NORMAL SALINE 250 ML IV SCH (06:29)
[2016-10-16 08:20] VITALS: PULSE 64; RESP 18
[2016-10-16 08:45] VITALS: BP 139/64; PULSE 64; RESP 18; TEMP 99.4; O2SAT 98
[2016-10-16] MEDS: ROSUVASTATIN 10 MG TABLET PO SCH (08:50)
[2016-10-16] MEDS: DOCUSATE SODIUM 100 MG CAPSULE PO SCH ×2 (08:51→20:45)
[2016-10-16] MEDS: CLOPIDOGREL 75 MG TABLET PO SCH (08:51)
[2016-10-16] MEDS: AMLODIPINE 10 MG TABLET PO SCH (08:51)
[2016-10-16] MEDS: SENNOSIDES 8.6 MG TABLET PO SCH ×2 (08:51→20:45)
[2016-10-16] MEDS: DULOXETINE 60 MG CAPSULE PO SCH (08:51)
[2016-10-16] MEDS: LOSARTAN 100 MG TABLET PO SCH (08:52)
[2016-10-16] MEDS: OXYCODONE/APAP 5mg/325mg TABLET PO PRN ×2 (12:40→18:09)
--- NOTE | 2016-10-16 12:42 | PNPDOC ---
INDIA KIM SCREEN ROOM OPERATOR 10/16/16 1239: Subjective Date DATE: 10/16/16 TIME: 12:35 Sitting in chair, alone in room. Appears frail. Complains of back pain, rates pain level VIII currently. Oriented to place/person, but having difficulty with short-term memory. She does not know when her last bowel movement was, could not tell me if she was having diarrhea or constipation." I don't remember." Has indwelling herrera catheter. General: No fever, no night sweats Eyes: No redness, no pain, no diplopia ENT: No mouth sores, no trouble swallowing Cardiac: No chest pain no palpitations Pulmonary: No cough, no shortness of breath, no wheezing Abdomen: No pain,+ nausea, no vomiting, no diarrhea or constipation : Indwelling Herrera Musculoskeletal: Complains of mid and lower back pain, intermittent Neurological: No headaches, no focal weakness Skin: No rash, no sores Psychiatric: No anxiety, no depression Objective Vital Signs Vital Signs 10/16/16 10/16/16 10/16/16 08:20 08:45 08:52 Temp 99.4 Pulse 64 64 64 Resp 18 18 B/P 139/64 139/64 Pulse Ox 98 O2 Delivery Room Air Height (Feet): 5 Height (Inches): 3.00 Weight (Kilograms): 69.300 General Alert, Orientated x 2, Mild Distress Eyes (Brief) Eyes: FOUND: PERRL, NOT FOUND: scleral icterus Neck (Brief) Neck: NOT FOUND: adenopathy, tenderness Respiratory (Brief) Respiratory: FOUND: clear all motley, NOT FOUND: wheezes Cardiovascular (Brief) Cardiac: FOUND: pedal edema (trace pedal edema), regular rate, regular rhythm Abdomen (Brief) Abdominal: FOUND: BS normo active x4, tender (mild tenderness with exam), NOT FOUND: hepatosplenomegaly Musculoskeletal (Brief) NOT FOUND: deformity, loss of motion Integumentary (Brief) FOUND: dry, warm, NOT FOUND: rash Neurologic (Brief) FOUND: cranial 2-12 intact, NOT FOUND: motor (no acute motor deficit. Generalized weakness) Psychiatric (Brief) FOUND: alert, attentive, normal affect, oriented Laboratory Laboratory Tests Test 10/15/16 18:21 10/15/16 20:07 10/15/16 23:33 10/16/16 05:13 Glucometer 181mg/dL 264mg/dL 199mg/dL White Blood Count 6.9T/MM3 Red Blood Count 3.30M/MM3 Hemoglobin 10.2GM/DL Hematocrit 29.6% Mean Corpuscular Volume 89.7UM3 Mean Corpuscular Hemoglobin 30.9UUG Mean Corpuscular Hemoglobin Concent 34.5GM/DL RDW Standard Deviation 37.7FL Platelet Count 203T/MM3 Mean Platelet Volume 9.8UM3 Immature Granulocyte % (Auto) 0.3% Neutrophils (%) (Auto) 56.2% Lymphocytes (%) (Auto) 20.3% Monocytes (%) (Auto) 9.8% Eosinophils (%) (Auto) 13.0% Basophils (%) (Auto) 0.4% Absolute Immature Granulocyte (auto 0.02T/MM3 Absolute Neutrophils (auto) 3.9T/MM3 Absolute Lymphocytes (auto) 1.4T/MM3 Absolute Monocytes (auto) 0.7T/MM3 Absolute Eosinophils (auto) 0.9T/MM3 Absolute Basophils (auto) 0.0T/MM3 Turbidity < 20 Sodium Level 141MEQ/L Potassium Level 3.5MEQ/L Chloride Level 112MEQ/L Carbon Dioxide Level 21MEQ/L Anion Gap 8MEQ/L Blood Urea Nitrogen 10.0MG/DL Creatinine 1.0MG/DL Glomerular Filtration Rate Calc 53 BUN/Creatinine Ratio 10RATIO Glucose Level 136MG/DL Calculated Osmolality 272MOSM/KG Calcium Level 8.0MG/DL Icterus Index < 2 Chemistry Specimen Hemolysis < 15 Test 10/16/16 05:48 10/16/16 10:30 10/16/16 11:54 Glucometer 145mg/dL 247mg/dL 285mg/dL Microbiology Microbiology Date/Time Source Procedure Growth Status 10/15/16 10:55 Not Provided Urine Culture - Preliminary NO GROWTH AFTER 24 HOURS Resulted Sepsis Diagnostic Criteria Sepsis Confirmed/Suspected Infection: Yes SIRS Criteria: Pulse >= 90 beats/min Severe Sepsis Lactate >=2.0 mg/dL Assessment & Plan Assessment 1. Metastatic breast cancer involving bone and supraclavicular area currently on Faslodex and Xgeva with fairly stable disease with slight increase in tumor markers recently. MRI shows the bone lesions appear fairly stable since 2013 although there appears to be slightly more epidural extension and would consider possible palliative radiation therapy. 2. Urinary retention probably secondary to tramadol that has a 1-5% incidence of urinary retention. Has indwelling catheter currently. 3. Recent pneumonia with confusion related to Levaquin. Initially with sign symptoms of sepsis on hospital admission; clinically improving. Currently on vancomycin. Her initial blood culture showed gram stain positive for staph. Blood cultures negative at 72 hours. A urinary culture is negative. Maximum temperature in past 48 hours was 99.4 yesterday and again today. 4. Peripheral vascular disease and coronary artery disease currently stable 5. Macular degeneration with blindness 6. Diabetes mellitus 7. Chronic renal insufficiency 8. Hypercalcemia with hyperparathyroidism probably exacerbated by hydrochlorothiazide. Calcium has been managable between 10 and 11. Today calcium mildly low at 8.0 Plan/Intensity of Service Continue supportive care. Follow counts, calcium, renal function. Dr. Meyers will see her today. Dr. Israel recommends consultation with radiation oncologist , Dr. Ashley Blank. Discussed plan with patient; informed radiation therapy may be indicated and helpful in reducing her back pain. She has no questions at this time Code Status Do Not Resuscitate Hospital Course Summary Disclaimer The visit summary below is not to be considered part of the above Progress Note. Hospital Course Summary Will admit patient to inpatient status under the care of Dr. Adams for sepsis with questionable urinary tract infection and abdominal pain. Patient given IV fluid boluses in the emergency room and started on antibiotic therapy. Was given cefepime, Levaquin and vancomycin. Blood cultures and urine culture are pending. May to narrow antibiotic therapy Repeat venous lactate as per sepsis protocol at 1300 today Continue with IV fluids, half-normal saline at 100 ML per hour for ongoing hydration. Noted Creatinine is slightly elevated at 1.3, however, this appears to be her baseline Any to work on more aggressive pain control as patient is quite uncomfortable at time of admission. Morphine 2 milligrams IV as needed every 2 hours Reglan and Zofran as needed for nausea control Patient does utilize scheduled Ativan for chronic anxiety. Will add Ativan 0.5 milligrams IV every 4 hours as needed as this may help with her discomfort. Patient reports having significant hemorrhoid irritation from the diarrhea. Will order Anusol suppositories as well as benzocaine topical ointment for discomfort Monitor Accu-Cheks fasting and 2 hours postprandial. He shouldn't is on Lantus 8 units subcutaneous twice a day chronically for diabetes. Will review home medications. At this time. Will place him on hold given patient 's severe abdominal pain and nausea. Question if severity of pain is secondary to Bony Mets? Patient nothing by mouth with ice chips only until symptoms have improved. Up in room with assistance SCDs to bilateral lower extremity for DVT prophylaxis Again, patient requests to be a do not resuscitate and this order is written Will discuss further plan of care with attending, Dr. Adams 10/14/16 Abdominal pain has improved. She has no nausea or vomiting. Will advance diet to full liquid with toast and crackers. Reduce rate of IVF. History of constipation, will restart routine bowel medications, which includes Colace and senna, 2 tabs BID. She had thoracic and lumbar spine MRIs today, results are pending. Hydronephrosis and urinary retention: Discussed Herrera catheter with Alida. Her preference would be to discontinue this before discharge if possible. Possible Sepsis: No sources for pain identified. Following discussion with Alida , will discontinue antibiotics. Blood cultures are negative after 24 hours. Reassess labs tomorrow morning. Consult PT and OT for evaluation tomorrow morning. Rosario uses a walker at baseline. MRIs of the lumbar and thoracic spine were reviewed with the patient's daughter and Dr. Israel. Stable metastatic disease is described in the thoracic spine without cord compression. Metastatic disease also seen in the lumbar spine and pelvis without clear evidence of spinal canal/cord involvement. There is severe multilevel degenerative disease in the lumbar spine with central spinal stenosis and neuroforaminal stenosis greatest from L2-L5. 1/2 blood cultures positive for staph, unclear if coag negative at this time. Initiate bladder retraining at present. Significant drop in hemoglobin noted- reassess tomorrow but no indication of acute blood loss. 10/15/16 Vancomycin was restarted yesterday afternoon after staphylococcus growth was seen in the anaerobic blood culture bottle. Other 2 antibiotics have not been restarted. Abdominal pain improving, nontender this morning. She has not had a bowel movement since admission & her routine bowel regimen was started yesterday. Urinary retention - continue bladder retraining with Herrera. Normocytic anemia, acute - hgb decreased to 10.3 today. Will assess iron studies and check stool for occult blood. IVF: oral intake starting to improve - may be able to dc IVF soon. DONNA MEYERS MD 10/16/16 1214: Assessment & Plan Plan/Intensity of Service I have seen and examined the patient. I agree with the plan of palliative radiation to the back. The patient is scheduled for consultation with Dr. Ashley Guerra tomorrow. INDIA KIM APRN Oct 16, 2016 12:39 DONNA MEYERS MD Oct 16, 2016 19:04
--- NOTE | 2016-10-16 15:24 | NUR ---
PT NOTE: Attempted to see pt twice today and she refused twice. Pt reports she was up all morning and very painful and just gets positioned comfortably and gets moved again.. Will attempt therapy tmr. Any questions plese call [phone]
[2016-10-16 15:33] VITALS: BP 145/66; PULSE 68; RESP 17; TEMP 97.8; O2SAT 99
--- NOTE | 2016-10-16 15:49 | NUR ---
STATUS pt is alert and oriented. pt has had some pain and was given prn pain meds as charted. pt gets up with assist X1 using the gaitbelt and walker. pt sat in the chair this shift and ate meals in the chair. pt is on room air. pt is resting in bed. call light within reach. pt denies needing anything at this time. will continue to monitor pt.
[2016-10-16] MEDS: EYE BOTH EYES SCH (20:44)
[2016-10-16] MEDS: BIMATOPROST 0.01% BOTH EYES SCH (20:44)
--- NOTE | 2016-10-16 20:47 | NUR ---
Refused meds Pt refused evening stool softeners. Stated, "You don't think I need them do you?" This RN agreed with patient because of frequent liquid stools during last 24 hours.
--- NOTE | 2016-10-16 21:08 | PNPDOC ---
Subjective Date DATE: 10/16/16 TIME: 20:52 Subjective Mrs. Julio reported that she has back pain and that she hurt all over. She sits he has intermittent lightheadedness but that is not too bad and has had slight fevers. She reports mild nausea but oral intake is improved per nursing and wants to have "that tube" taken out referring to the Alvarez. When asked about her bowels she continued to refer to having a tube and that she didn't know. Daughter was not present today but the patient thinks her daughter will be here tomorrow. Objective Vital Signs Vital signs Vital Signs Date Time Temp Pulse Resp B/P Pulse Ox O2 Delivery O2 Flow Rate FiO2 10/16/16 15:33 97.8 68 17 145/66 99 Room Air I/O 3131/1850 EXAM General-NAD, alert, soft-spoken HEENT-conjunctiva clear, sclera anicteric, conjugate gaze, oropharynx clear Lungs-respirations nonlabored, diminished airflow Cardiac-regular rhythm Abd-soft, nontender-including over the bladder today, bowel sounds present Neuro-moving all extremities spontaneously Psych-more interactive today than when seen yesterday, aware she is in the hospital, dull Height (Feet): 5 Height (Inches): 3.00 Weight (Kilograms): 69.300 Laboratory Laboratory Laboratory Tests 10/15/16 04:24 10/16/16 05:13 Laboratory Tests 10/15/16 04:24 10/16/16 05:13 Blood sugars [phone] today Iron 26, TIBC 172, ferritin 236, folic acid > 20 Microbiology Microbiology Microbiology Date/Time Source Procedure Growth Status 10/15/16 10:55 Not Provided Urine Culture - Preliminary NO GROWTH AFTER 24 HOURS Resulted 1/2 blood culture positive for staph on [employer], gram-positive cocci in clusters now present on Gram stain. Identification/sensitivity pending. Sepsis Diagnostic Criteria Sepsis Confirmed/Suspected Infection: Yes SIRS Criteria: Pulse >= 90 beats/min Severe Sepsis Lactate >=2.0 mg/dL Assessment & Plan Problems: (1) Severe sepsis Status: Resolved Assessment & Plan: Lactic acid 2.4, MAXIMUM TEMPERATURE 99.9, tachycardia, white count 11.1 Growth in anaerobic blood culture bottle on 10/14/16 (2) Normocytic anemia Status: Acute (3) Urinary retention Status: Acute Assessment & Plan: Alvarez catheter inserted on 10/13/16 (4) Abdominal pain Status: Resolved (5) Bone metastasis Status: Chronic (6) Breast cancer Status: Chronic Qualifiers: Laterality: right (7) Anxiety Status: Chronic (8) Diabetes Status: Chronic Qualifiers: Diabetes mellitus type: type 2 Chronic kidney disease stage: stage 3 ( moderate) (9) Macular degeneration Status: Chronic (10) Diarrhea Status: Chronic (11) Depression Status: Chronic (12) CKD (chronic kidney disease), stage III Status: Chronic (13) Dehydration Status: Acute Assessment & Plan: Present on admission Assessment Patient is slowly improving. Hemoglobin down with hydration in conjunction with dropping BUN/creatinine. Improved oral intake, IV fluids discontinued. Significance of staph in 1/2 cultures unclear however gram-positive cocci have now been reported on Gram stain in the same bottle. Blood cultures will be repeated, vancomycin continued pending additional information. Repeat chest x-ray in the morning, no clinical evidence of pneumonia. Will discuss plans further with Dr. Israel tomorrow, discussed with Zaira Pagan APRN briefly today. Persistent postprandial hyperglycemia, will resume Lantus at half dose in conjunction with corrective insulin. Alvarez discontinued, monitor urine output with bladder scans. Straight catheter if needed. Bowel function adequate with 3 stools/2 days Plan/Intensity of Service Discussed with oncology, case management, and nursing. Laboratory data reviewed. Chest x-ray ordered. Code Status Do Not Resuscitate Hospital Course Summary Disclaimer The hospital course summary below is not to be considered part of the above Progress Note. Hospital Course Summary Will admit patient to inpatient status under the care of Dr. Adams for sepsis with questionable urinary tract infection and abdominal pain. Patient given IV fluid boluses in the emergency room and started on antibiotic therapy. Was given cefepime, Levaquin and vancomycin. Blood cultures and urine culture are pending. May to narrow antibiotic therapy Repeat venous lactate as per sepsis protocol at 1300 today Continue with IV fluids, half-normal saline at 100 ML per hour for ongoing hydration. Noted Creatinine is slightly elevated at 1.3, however, this appears to be her baseline Any to work on more aggressive pain control as patient is quite uncomfortable at time of admission. Morphine 2 milligrams IV as needed every 2 hours Reglan and Zofran as needed for nausea control Patient does utilize scheduled Ativan for chronic anxiety. Will add Ativan 0.5 milligrams IV every 4 hours as needed as this may help with her discomfort. Patient reports having significant hemorrhoid irritation from the diarrhea. Will order Anusol suppositories as well as benzocaine topical ointment for discomfort Monitor Accu-Cheks fasting and 2 hours postprandial. He shouldn't is on Lantus 8 units subcutaneous twice a day chronically for diabetes. Will review home medications. At this time. Will place him on hold given patient 's severe abdominal pain and nausea. Question if severity of pain is secondary to Bony Mets? Patient nothing by mouth with ice chips only until symptoms have improved. Up in room with assistance SCDs to bilateral lower extremity for DVT prophylaxis Again, patient requests to be a do not resuscitate and this order is written Will discuss further plan of care with attending, Dr. Adams 10/14/16 Abdominal pain has improved. She has no nausea or vomiting. Will advance diet to full liquid with toast and crackers. Reduce rate of IVF. History of constipation, will restart routine bowel medications, which includes Colace and senna, 2 tabs BID. She had thoracic and lumbar spine MRIs today, results are pending. Hydronephrosis and urinary retention: Discussed Alvarez catheter with Alida. Her preference would be to discontinue this before discharge if possible. Possible Sepsis: No sources for pain identified. Following discussion with Alida , will discontinue antibiotics. Blood cultures are negative after 24 hours. Reassess labs tomorrow morning. Consult PT and OT for evaluation tomorrow morning. Rosario uses a walker at baseline. MRIs of the lumbar and thoracic spine were reviewed with the patient's daughter and Dr. Israel. Stable metastatic disease is described in the thoracic spine without cord compression. Metastatic disease also seen in the lumbar spine and pelvis without clear evidence of spinal canal/cord involvement. There is severe multilevel degenerative disease in the lumbar spine with central spinal stenosis and neuroforaminal stenosis greatest from L2-L5. 1/2 blood cultures positive for staph, unclear if coag negative at this time. Initiate bladder retraining at present. Significant drop in hemoglobin noted- reassess tomorrow but no indication of acute blood loss. 10/15/16 Vancomycin was restarted yesterday afternoon after staphylococcus growth was seen in the anaerobic blood culture bottle. Other 2 antibiotics have not been restarted. Abdominal pain improving, nontender this morning. She has not had a bowel movement since admission & her routine bowel regimen was started yesterday. Urinary retention - continue bladder retraining with Alvarez. Normocytic anemia, acute - hgb decreased to 10.3 today. Will assess iron studies and check stool for occult blood. IVF: oral intake starting to improve - may be able to dc IVF soon. 09/15/16 Patient is slowly improving. Hemoglobin down with hydration in conjunction with dropping BUN/creatinine. Improved oral intake, IV fluids discontinued. Significance of staph in 1/2 cultures unclear however gram-positive cocci have now been reported on Gram stain in the same bottle. Blood cultures will be repeated, vancomycin continued pending additional information. Repeat chest x-ray in the morning, no clinical evidence of pneumonia. Will discuss plans further with Dr. Israel tomorrow, discussed with Zaira Pagan APRN briefly today. Persistent postprandial hyperglycemia, will resume Lantus at half dose in conjunction with corrective insulin. Alvarez discontinued, monitor urine output with bladder scans. Straight catheter if needed. Bowel function adequate with 3 stools/2 days JACOB ADAMS MD Oct 16, 2016 20:56
[2016-10-16] MEDS: INSULIN ASPART 100 UNIT/ML SQ PRN (21:28)
[2016-10-16] MEDS: INSULIN GLARGINE 100 UNIT/ML SQ SCH (21:28)
--- NOTE | 2016-10-16 22:55 | NUR ---
Status Pt A/Ox3. DC'd IVF. Bladder scanned post void and pt had 303 ml in bladder. Up with 1, JIMMIE, and walker. Report given to ESTRELLITA Fan.
[2016-10-17 01:00] VITALS: BP 162/58; PULSE 63; RESP 20; TEMP 97.8; O2SAT 98
--- NOTE | 2016-10-17 01:15 | NUR ---
elim assisted to BR, voids 250cc. Bladder scan post void indicates 336cc
[2016-10-17] MEDS: OXYCODONE/APAP 5mg/325mg TABLET PO PRN ×3 (04:37→21:08)
--- NOTE | 2016-10-17 04:45 | NUR ---
rest has been sleeping restfully last several hours. Now states pain "all over". Percocet offered
[2016-10-17 05:39] LABS: BASOPHILS % (AUTO) 0.6 % (0-2); EOSINOPHILS # (AUTO) 0.8 T/MM3 (0-0.5); EOSINOPHILS % (AUTO) 10.6 % (0-4); HCT - HEMATOCRIT 30.1 % (36-46); HGB - HEMOGLOBIN 10.5 GM/DL (12-16); IMMATURE GRANULOCYTE # (AUTO) 0.04 T/MM3 (0.00-0.03); IMMATURE GRANULOCYTE % (AUTO) 0.6 % (0.0-0.5); LYMPHOCYTES # (AUTO) 1.6 T/MM3 (1-4.8); MEAN CORPUSCULAR HGB 30.9 UUG (26-34); MEAN CORPUSCULAR HGB CONC(MCHC 34.9 GM/DL (31-37); MEAN CORPUSCULAR VOLUME 88.5 UM3 (80-100); MONOCYTES # (AUTO) 0.7 T/MM3 (0-0.8); MONOCYTES % (AUTO) 9.5 % (0-9.0); NEUTROPHILS % (AUTO) 55.7 % (33-66); WBC - WHITE BLOOD COUNT 7.1 T/MM3 (4.5-11.0)
[2016-10-17 05:49] LABS: ALBUMIN 2.1 G/DL (3.5-5.0); ANION GAP 5 MEQ/L (5-15); BUN/CREATININE RATIO 9 RATIO (6-26); CHLORIDE 113 MEQ/L (98-107); CO2 - CARBON DIOXIDE 23 MEQ/L (22-30); CREATININE 1.1 MG/DL (0.7-1.2); GLOMERULAR FILTRATION RATE 47; GLUCOSE 129 MG/DL (65-110); MAGNESIUM 1.6 MG/DL (1.6-2.3); PHOSPHORUS 1.8 MG/DL (2.5-4.5); POTASSIUM 3.3 MEQ/L (3.6-5); SODIUM 141 MEQ/L (134-144)
--- NOTE | 2016-10-17 06:00 | NUR ---
rest sleeps restfully, resp. unlabored. Repositions self
[2016-10-17] MEDS ORDERED: NS 500 ML IV PRN (06:30)
[2016-10-17] MEDS: VANCOMYCIN 1 G in NORMAL SALINE 250 ML IV SCH (06:41)
[2016-10-17 07:32] VITALS: BP 163/68; PULSE 61; RESP 18; TEMP 98.2; O2SAT 99
--- NOTE | 2016-10-17 09:00 | DI ---
Indication: ITS.REASON: follow-up, pneumonia PROCEDURE: CHEST 1 VIEW: Encounter: Initial Comparison: October 13, 2016 Findings: Probable trace right effusion. Lungs are otherwise clear. No pneumothorax. Heart size and mediastinal contours are stable. Prior CABG. Pulmonary vascularity appears normal. Impression: Trace right effusion without focal pneumonia. .
[2016-10-17] MEDS: DULOXETINE 60 MG CAPSULE PO SCH (09:03)
[2016-10-17] MEDS: ROSUVASTATIN 10 MG TABLET PO SCH (09:03)
[2016-10-17] MEDS: SENNOSIDES 8.6 MG TABLET PO SCH ×2 (09:03→21:07)
[2016-10-17] MEDS: AMLODIPINE 10 MG TABLET PO SCH (09:03)
[2016-10-17] MEDS: DOCUSATE SODIUM 100 MG CAPSULE PO SCH ×2 (09:04→21:07)
[2016-10-17] MEDS: CLOPIDOGREL 75 MG TABLET PO SCH (09:04)
[2016-10-17] MEDS: LOSARTAN 100 MG TABLET PO SCH (09:12)
[2016-10-17] MEDS: INSULIN ASPART 100 UNIT/ML SQ PRN ×3 (10:12→21:07)
--- NOTE | 2016-10-17 11:52 | PNPDOC ---
INDIA PAGAN [employer] HEL[employer] 10/17/16 1152: Subjective Date DATE: 10/17/16 TIME: 11:51 Reclining in hospital bed with eyes closed. Awakens easily, but states feels tired today. Denies pain currently,intermittent back pain persists. She is eating and drinking fair. Normal voiding. 2 small loose/liquid bowel movements today. General: No fever, no night sweats Eyes: No redness, no pain, no diplopia ENT: No mouth sores, no trouble swallowing Cardiac: No chest pain no palpitations Pulmonary: No cough, no shortness of breath, no wheezing Abdomen: No pain, no nausea vomiting, no diarrhea or constipation : No urgency, frequency, dysuria, or hematuria Musculoskeletal: Intermittent back pain Neurological: No headaches, no focal weakness Skin: No rash, no sores Psychiatric: No anxiety, no depression Objective Vital Signs Vital Signs 10/17/16 10/17/16 10/17/16 01:00 07:32 09:12 Temp 97.8 98.2 Pulse 63 61 61 Resp 20 18 B/P 162/58 163/68 163/68 Pulse Ox 98 99 O2 Delivery Room Air Room Air Height (Feet): 5 Height (Inches): 3.00 Weight (Kilograms): 70.400 General Alert, Orientated x 2, No Acute Distress Eyes (Brief) Eyes: FOUND: PERRL, NOT FOUND: scleral icterus Neck (Brief) Neck: NOT FOUND: adenopathy, tenderness Respiratory (Brief) Respiratory: FOUND: clear all motley, NOT FOUND: wheezes Cardiovascular (Brief) Cardiac: FOUND: pedal edema (trace pedal edema), regular rate, regular rhythm Abdomen (Brief) Abdominal: FOUND: BS normo active x4, tender (mild tenderness with exam), NOT FOUND: hepatosplenomegaly Musculoskeletal (Brief) NOT FOUND: deformity, loss of motion Integumentary (Brief) FOUND: dry, warm, NOT FOUND: rash Neurologic (Brief) FOUND: cranial 2-12 intact, NOT FOUND: motor (no acute motor deficit. Generalized weakness) Psychiatric (Brief) FOUND: alert, attentive, normal affect, oriented Laboratory Laboratory Tests Test 10/16/16 11:54 10/16/16 16:22 10/16/16 18:13 10/16/16 19:51 Glucometer 285mg/dL 217mg/dL 170mg/dL Stool Occult Blood Positive Stool Cyclospora species Detection Negative Stool Rotavirus A PCR Negative Stool Adenovirus (PCR) Negative Stool Astrovirus (PCR) Negative Stool Campylobacter PCR Negative Stool C. difficile Toxin (PCR) Negative Stool Cryptosporidium PCR Negative Stool E. coli Shiga Toxins Negative Stool E coli O157 PCR N/a Stool Enterotoxigenic Ecoli PCR Negative Stool Enteropathogenic E. coli (PCR Negative Stool Enteroaggregative E. coli PCR Negative Stool Entamoeba (PCR) Negative Stool Giardia Lamblia PCR Negative Stool Salmonella PCR Negative Stool Sapovirus (PCR) Negative Stool Plesiomonas shigelloides PCR Negative Stool Shigella/EIEC (PCR) Negative Stool Yersinia enterocolitica (PCR) Negative Stool Vibrio (PCR) Negative Stool Vibrio cholera (PCR) Negative Stool Norovirus GI/GII PCR Negative Test 10/17/16 05:14 10/17/16 06:09 10/17/16 10:07 White Blood Count 7.1T/MM3 Red Blood Count 3.40M/MM3 Hemoglobin 10.5GM/DL Hematocrit 30.1% Mean Corpuscular Volume 88.5UM3 Mean Corpuscular Hemoglobin 30.9UUG Mean Corpuscular Hemoglobin Concent 34.9GM/DL RDW Standard Deviation 38.0FL Platelet Count 207T/MM3 Mean Platelet Volume 10.0UM3 Immature Granulocyte % (Auto) 0.6% Neutrophils (%) (Auto) 55.7% Lymphocytes (%) (Auto) 23.0% Monocytes (%) (Auto) 9.5% Eosinophils (%) (Auto) 10.6% Basophils (%) (Auto) 0.6% Absolute Immature Granulocyte (auto 0.04T/MM3 Absolute Neutrophils (auto) 4.0T/MM3 Absolute Lymphocytes (auto) 1.6T/MM3 Absolute Monocytes (auto) 0.7T/MM3 Absolute Eosinophils (auto) 0.8T/MM3 Absolute Basophils (auto) 0.0T/MM3 Turbidity < 20 Sodium Level 141MEQ/L Potassium Level 3.3MEQ/L Chloride Level 113MEQ/L Carbon Dioxide Level 23MEQ/L Anion Gap 5MEQ/L Blood Urea Nitrogen 10.0MG/DL Creatinine 1.1MG/DL Glomerular Filtration Rate Calc 47 BUN/Creatinine Ratio 9RATIO Glucose Level 129MG/DL Calculated Osmolality 272MOSM/KG Calcium Level 8.0MG/DL Phosphorus Level 1.8MG/DL Magnesium Level 1.6MG/DL Icterus Index < 2 Albumin 2.1G/DL Chemistry Specimen Hemolysis < 15 Glucometer 139mg/dL 230mg/dL Microbiology Microbiology Date/Time Source Procedure Growth Status 10/16/16 22:15 Peripheral/Iv Start Blood Culture - Preliminary CULTURE INITIATED - RESULTS PENDING Resulted 10/16/16 21:32 Peripheral/Iv Start Blood Culture - Preliminary CULTURE INITIATED - RESULTS PENDING Resulted 10/15/16 10:55 Not Provided Urine Culture - Preliminary NO GROWTH AFTER 24 HOURS Resulted Sepsis Diagnostic Criteria Sepsis Confirmed/Suspected Infection: Yes SIRS Criteria: Pulse >= 90 beats/min Severe Sepsis Lactate >=2.0 mg/dL Assessment & Plan Assessment 1. Metastatic breast cancer involving bone and supraclavicular area currently on Faslodex and Xgeva with fairly stable disease with slight increase in tumor markers recently. MRI shows the bone lesions appear fairly stable since 2013 although there appears to be slightly more epidural extension and would consider possible palliative radiation therapy. Seen today by Dr. Ashley Guerra 2. Urinary retention probably secondary to tramadol that has a 1-5% incidence of urinary retention. Has indwelling catheter currently. 3. Recent pneumonia with confusion related to Levaquin. Initially with sign symptoms of sepsis on hospital admission; clinically improving. Currently on vancomycin. Her initial blood culture showed gram stain positive for staph. Blood cultures negative at 72 hours. A urinary culture is negative. As been afebrile for over 24 hours. 4. Peripheral vascular disease and coronary artery disease currently stable 5. Macular degeneration with blindness 6. Diabetes mellitus 7. Chronic renal insufficiency 8. Hypercalcemia with hyperparathyroidism probably exacerbated by hydrochlorothiazide. Calcium has been managable between 10 and 11. Yesterday and today calcium mildly low at 8.0 Plan/Intensity of Service Continue supportive care, antibiotics, and will monitor counts. Anticipate continued treatment with Faslodex and Xgeva on discharge. Radiation therapy per Dr. JAIME's recommendations Code Status Do Not Resuscitate Hospital Course Summary Disclaimer The visit summary below is not to be considered part of the above Progress Note. Hospital Course Summary Will admit patient to inpatient status under the care of Dr. Adams for sepsis with questionable urinary tract infection and abdominal pain. Patient given IV fluid boluses in the emergency room and started on antibiotic therapy. Was given cefepime, Levaquin and vancomycin. Blood cultures and urine culture are pending. May to narrow antibiotic therapy Repeat venous lactate as per sepsis protocol at 1300 today Continue with IV fluids, half-normal saline at 100 ML per hour for ongoing hydration. Noted Creatinine is slightly elevated at 1.3, however, this appears to be her baseline Any to work on more aggressive pain control as patient is quite uncomfortable at time of admission. Morphine 2 milligrams IV as needed every 2 hours Reglan and Zofran as needed for nausea control Patient does utilize scheduled Ativan for chronic anxiety. Will add Ativan 0.5 milligrams IV every 4 hours as needed as this may help with her discomfort. Patient reports having significant hemorrhoid irritation from the diarrhea. Will order Anusol suppositories as well as benzocaine topical ointment for discomfort Monitor Accu-Cheks fasting and 2 hours postprandial. He shouldn't is on Lantus 8 units subcutaneous twice a day chronically for diabetes. Will review home medications. At this time. Will place him on hold given patient 's severe abdominal pain and nausea. Question if severity of pain is secondary to Bony Mets? Patient nothing by mouth with ice chips only until symptoms have improved. Up in room with assistance SCDs to bilateral lower extremity for DVT prophylaxis Again, patient requests to be a do not resuscitate and this order is written Will discuss further plan of care with attending, Dr. Adams 10/14/16 Abdominal pain has improved. She has no nausea or vomiting. Will advance diet to full liquid with toast and crackers. Reduce rate of IVF. History of constipation, will restart routine bowel medications, which includes Colace and senna, 2 tabs BID. She had thoracic and lumbar spine MRIs today, results are pending. Hydronephrosis and urinary retention: Discussed Alvarez catheter with Alida. Her preference would be to discontinue this before discharge if possible. Possible Sepsis: No sources for pain identified. Following discussion with Alida , will discontinue antibiotics. Blood cultures are negative after 24 hours. Reassess labs tomorrow morning. Consult PT and OT for evaluation tomorrow morning. Rosario uses a walker at baseline. MRIs of the lumbar and thoracic spine were reviewed with the patient's daughter and Dr. Israel. Stable metastatic disease is described in the thoracic spine without cord compression. Metastatic disease also seen in the lumbar spine and pelvis without clear evidence of spinal canal/cord involvement. There is severe multilevel degenerative disease in the lumbar spine with central spinal stenosis and neuroforaminal stenosis greatest from L2-L5. 1/2 blood cultures positive for staph, unclear if coag negative at this time. Initiate bladder retraining at present. Significant drop in hemoglobin noted- reassess tomorrow but no indication of acute blood loss. 10/15/16 Vancomycin was restarted yesterday afternoon after staphylococcus growth was seen in the anaerobic blood culture bottle. Other 2 antibiotics have not been restarted. Abdominal pain improving, nontender this morning. She has not had a bowel movement since admission & her routine bowel regimen was started yesterday. Urinary retention - continue bladder retraining with Alvarez. Normocytic anemia, acute - hgb decreased to 10.3 today. Will assess iron studies and check stool for occult blood. IVF: oral intake starting to improve - may be able to dc IVF soon. 09/15/16 Patient is slowly improving. Hemoglobin down with hydration in conjunction with dropping BUN/creatinine. Improved oral intake, IV fluids discontinued. Significance of staph in 1/2 cultures unclear however gram-positive cocci have now been reported on Gram stain in the same bottle. Blood cultures will be repeated, vancomycin continued pending additional information. Repeat chest x-ray in the morning, no clinical evidence of pneumonia. Will discuss plans further with Dr. Isarel tomorrow, discussed with Zaira Pagan APRN briefly today. Persistent postprandial hyperglycemia, will resume Lantus at half dose in conjunction with corrective insulin. Alvarez discontinued, monitor urine output with bladder scans. Straight catheter if needed. Bowel function adequate with 3 stools/2 days MAGDALENA ISRAEL 10/17/161735: Objective Laboratory Item Value Date Time CA 27.29 43.47 U/ML H 10/15/16423 Carcinoembryonic Antigen 2.87 UG/L 10/15/16423 Iron Level 26 UG/DL L 10/15/16423 Total Iron Binding Capacity 172 UG/DL L 10/15/16423 Ferritin 236 NG/ML 10/15/16423 Hemoglobin 10.5 GM/DL L 10/17/1614 Mean Corpuscular Hemoglobin 30.9 UUG 10/17/16513 Mean Corpuscular Volume 88.5 UM3 10/17/16 0514 Stool Occult Blood Positive A 10/16/16 5249 Assessment & Plan Assessment Patient examined, chart reviewed, discussed with patient, son and granddaughter. Images reviewed with Dr. Ashley Blank. I am concerned about potential epidural metastasis in the T6 area. It appears to me that there is pressure on the thecal sac from potential epidural tumor at the T6 area. Will review films with radiologist tomorrow. CEA and CA-27-29 have declined in the last month. CA-27-29 is 43. CEA is normal at 2.87. Overall her disease is been fairly stable. Will continue Faslodex and Xgeva. We'll schedule appointment next week in the office to continue this therapy. She has developed anemia and has iron studies compatible with anemia chronic disease with low iron low iron binding capacity an elevated ferritin. She also has positive stool for blood. We'll continue to following consider endoscopy if symptoms worsen. Plan/Intensity of Service Follow-up in the office next week with Faslodex and Xgeva INDIA PAGAN APRN Oct 17, 2016 11:52 MAGDALENA ISRAEL Oct 17, 2016 17:36
[2016-10-17] MEDS ORDERED: SALINE FLUSH 10ml SYRINGE ONE (11:59)
[2016-10-17] MEDS ORDERED: GADOBUTROL 10mMol/10ml INJECTION IV ONE (11:59)
[2016-10-17] MEDS: LORAZEPAM 2 MG/ML INJECTION IV PRN (12:13)
--- NOTE | 2016-10-17 12:15 | NUR ---
Anxiety Patient to have an MRI. Patient states she is claustrophobic. Patient wishes to have IV ativan.
--- NOTE | 2016-10-17 13:00 | DI ---
Indication: ITS.REASON: confusion, met-breast ca PROCEDURE: MRI BRAIN W/WO CONTRAST: Encounter: Initial Comparisons: Brain MRI dated July 18, 2015 Technique: Multiplanar, multisequence, MR imaging of the head with and without contrast was acquired. Contrast: 7 mL of Gadavist FINDINGS: The ventricles are of normal size, shape, and contour for the patient's age. There are small nonspecific punctate areas of T2-weighted and T2 FLAIR weighted signal abnormality in the deep frontoparietal white matter that most likely represent small vessel ischemic disease. This is of a degree that is considered to be normal for the patient's age. The brain stem, cerebellum, and cerebral hemispheres otherwise have a normal morphologic appearance as well as MR signal intensity on all pulse sequences. Following intravenous administration of contrast, no areas of abnormal enhancement are evident. There are no areas of restricted diffusion to suggest an acute infarct. There is no evidence of an intracranial mass lesion, intracranial hemorrhage, or hydrocephalus. The visualized portions of the orbits, calvarium, paranasal sinuses, and skull base demonstrate no significant abnormality. IMPRESSION: Stable exam. No evidence of intracranial metastatic disease. .
--- NOTE | 2016-10-17 13:18 | NUR ---
JACK LEFT MESSAGE WITH DENISE AT [facility] THAT POTENTIALLY PATIENT WILL DISCHARGE TOMORROW.
--- NOTE | 2016-10-17 15:09 | NUR ---
JACK [facility] RETURNED CALL, THEY WILL CALL TOMORROW LATE MORNING FOR ANOTHER UPDATE OF DISCHARGE.
--- NOTE | 2016-10-17 15:49 | CONSPD ---
Consultation Date DATE: 10/17/16 TIME: 15:39 86-year old woman followed by Dr. Israel with metastatic adenocarcinoma of the breast. Her history goes back to 1982 when she underwent a mastectomy and then recurred locally in 1998. She was treated with radiation at [facility] after re-resections of the recurrence. In 2013, she developed a new left supraclavicular mass positive for ER/MA receptors and negative HER2. A work-up including a PET scan showed metastatic disease in the bones. Patient was started on Faslodex and Xgeva (06/2014.) Patient has contralateral breast cancer that is being followed, given her poor health, it has remained stable and at 2cm. The most recent radiographic work-up continues to show multifocal osseous metastases with progression. The greatest area of concern involves the mid-thoracic area where there is canal encroachment both from the posterior and anterior elements. Plan: The most recent MRI of the T-spine (10/14/16) as compared to the MRI of shows progression of disease. The area of most involvement remain in the T6-T7 area extending posteriorly. Review of the scans was done with Dr. Israel. I concur with his recommendations for palliative radiation to the mid- thoracic area where bulky disease is seen in order to prevent destabilization and progression with neurologic deficit. I reviewed these findings with the patient as well as my conversations with Dr. Israel. She has an appointment to come back to my clinic next week to review these findings again along with her daughter. Decisions concerning treatment will be made at that time. STEPHANIE ESCOBAR MD Oct 17, 2016 15:49
[2016-10-17 15:58] VITALS: BP 127/57; PULSE 69; RESP 18; TEMP 98.6; O2SAT 98
[2016-10-17 17:15] VITALS: BP 160/63; PULSE 72
--- NOTE | 2016-10-17 17:33 | NUR ---
Pain Patient complains of back pain. Explained patient can have one every 4 hours. Percocet given.
[2016-10-17] MEDS ORDERED: NORMAL SALINE IV ONE (17:45)
[2016-10-17] MEDS ORDERED: POTASSIUM PHOSPHATE IV ONE (17:45)
--- NOTE | 2016-10-17 17:55 | PNPDOC ---
Subjective Date DATE: 10/17/16 TIME: 17:37 Subjective Mrs. Julio seen with her daughter at bedside. Alvarez was removed yesterday and patient reports she's been voiding without difficulty. She described persistent chronic back pain but denied persistent abdominal pain. She's had no nausea or vomiting and her appetite is good. She's had no fevers and denied dyspnea. Her daughter again expressed concern about intermittent confusion for some time and the possibility of metastatic intracranial disease. Objective Vital Signs Vital signs Vital Signs Date Time Temp Pulse Resp B/P Pulse Ox O2 Delivery O2 Flow Rate FiO2 10/17/16 17:15 72 160/63 10/17/16 15:58 98.6 18 98 Room Air EXAM General-NAD, alert, soft-spoken HEENT-minor left ptosis, conjunctiva clear, conjugate gaze Lungs-respirations nonlabored, good airflow, breath sounds clear bilaterally Cardiac-regular rhythm, S1-S2 Abd-soft, nontender, bowel sounds present Neuro-moving all extremities well Psych-slightly withdrawn but pleasant Height (Feet): 5 Height (Inches): 3.00 Weight (Kilograms): 70.400 Laboratory Laboratory Laboratory Tests 10/16/16 05:13 10/17/16 05:14 Laboratory Tests 10/16/16 05:13 10/17/16 05:14 Blood sugars 139-230 today Microbiology Microbiology Microbiology Date/Time Source Procedure Growth Status 10/16/16 22:15 Peripheral/Iv Start Blood Culture - Preliminary CULTURE INITIATED - RESULTS PENDING Resulted 10/16/16 21:32 Peripheral/Iv Start Blood Culture - Preliminary CULTURE INITIATED - RESULTS PENDING Resulted 10/15/16 10:55 Not Provided Urine Culture - Preliminary NO GROWTH AFTER 24 HOURS Resulted Initial blood cultures from 10/13-1/2 negative, 1/2 positive coag-negative staph- discussed with microbiology Radiology MRI reviewed by myself demonstrating no metastatic disease although there are are changes consistent with small vessel ischemic changes consistent for age. Chest x-ray demonstrates trace right pleural effusion Sepsis Diagnostic Criteria Sepsis Confirmed/Suspected Infection: Yes SIRS Criteria: Pulse >= 90 beats/min Severe Sepsis Lactate >=2.0 mg/dL Assessment & Plan Problems: (1) Severe sepsis Status: Resolved Assessment & Plan: Lactic acid 2.4, MAXIMUM TEMPERATURE 99.9, tachycardia, white count 11.1 Growth in anaerobic blood culture bottle on 10/14/16 (2) Normocytic anemia Status: Acute (3) Urinary retention Status: Resolved Assessment & Plan: Alvarez catheter inserted on 10/13/16 (4) Abdominal pain Status: Resolved (5) Bone metastasis Status: Chronic (6) Breast cancer Status: Chronic Qualifiers: Laterality: right (7) Anxiety Status: Chronic (8) Diabetes Status: Chronic Qualifiers: Diabetes mellitus type: type 2 Chronic kidney disease stage: stage 3 ( moderate) (9) Macular degeneration Status: Chronic (10) Diarrhea Status: Chronic (11) Depression Status: Chronic (12) CKD (chronic kidney disease), stage III Status: Chronic (13) Dehydration Status: Acute Assessment & Plan: Present on admission (14) Hypokalemia Status: Acute (15) Hypophosphatemia Status: Acute Assessment Patient is improving progressively. Fatigues easily. 1/2 blood culture positive coag-negative staph, repeat blood cultures negative to date. Initial culture probable contaminant-vancomycin discontinued. Alvarez catheter removed yesterday, patient is voiding but often has post void residuals of about 300 mL. Continue to monitor Improved oral intake, IV fluids discontinued yesterday. Lantus resumed at half dose, continue to monitor-anticipate resuming full dose at discharge. Daughter plans to defer radiation therapy at this time to permit patient to strengthen and recover. Both potassium and phosphorus low today-IV K-Phos to be administered, reassess in a.m. Hemoglobin stable after initial hydration; probable underlying chronic normocytic anemia. MRI brain obtained due to intermittent confusion described and to exclude intracranial metastatic [id number] changes present but no mets Plan/Intensity of Service Discussed with daughter, case management, and nursing. Discussed with Dr. Israel. Laboratory data reviewed. MRI reviewed by myself as well as chest x-ray. DVT Prophylaxis: SCD'S Code Status Do Not Resuscitate Hospital Course Summary Disclaimer The hospital course summary below is not to be considered part of the above Progress Note. Hospital Course Summary Will admit patient to inpatient status under the care of Dr. Adams for sepsis with questionable urinary tract infection and abdominal pain. Patient given IV fluid boluses in the emergency room and started on antibiotic therapy. Was given cefepime, Levaquin and vancomycin. Blood cultures and urine culture are pending. May to narrow antibiotic therapy Repeat venous lactate as per sepsis protocol at 1300 today Continue with IV fluids, half-normal saline at 100 ML per hour for ongoing hydration. Noted Creatinine is slightly elevated at 1.3, however, this appears to be her baseline Any to work on more aggressive pain control as patient is quite uncomfortable at time of admission. Morphine 2 milligrams IV as needed every 2 hours Reglan and Zofran as needed for nausea control Patient does utilize scheduled Ativan for chronic anxiety. Will add Ativan 0.5 milligrams IV every 4 hours as needed as this may help with her discomfort. Patient reports having significant hemorrhoid irritation from the diarrhea. Will order Anusol suppositories as well as benzocaine topical ointment for discomfort Monitor Accu-Cheks fasting and 2 hours postprandial. He shouldn't is on Lantus 8 units subcutaneous twice a day chronically for diabetes. Will review home medications. At this time. Will place him on hold given patient 's severe abdominal pain and nausea. Question if severity of pain is secondary to Bony Mets? Patient nothing by mouth with ice chips only until symptoms have improved. Up in room with assistance SCDs to bilateral lower extremity for DVT prophylaxis Again, patient requests to be a do not resuscitate and this order is written Will discuss further plan of care with attending, Dr. Adams 10/14/16 Abdominal pain has improved. She has no nausea or vomiting. Will advance diet to full liquid with toast and crackers. Reduce rate of IVF. History of constipation, will restart routine bowel medications, which includes Colace and senna, 2 tabs BID. She had thoracic and lumbar spine MRIs today, results are pending. Hydronephrosis and urinary retention: Discussed Alvarez catheter with Alida. Her preference would be to discontinue this before discharge if possible. Possible Sepsis: No sources for pain identified. Following discussion with Alida , will discontinue antibiotics. Blood cultures are negative after 24 hours. Reassess labs tomorrow morning. Consult PT and OT for evaluation tomorrow morning. Rosario uses a walker at baseline. MRIs of the lumbar and thoracic spine were reviewed with the patient's daughter and Dr. Israel. Stable metastatic disease is described in the thoracic spine without cord compression. Metastatic disease also seen in the lumbar spine and pelvis without clear evidence of spinal canal/cord involvement. There is severe multilevel degenerative disease in the lumbar spine with central spinal stenosis and neuroforaminal stenosis greatest from L2-L5. /2 blood cultures positive for staph, unclear if coag negative at this time. Initiate bladder retraining at present. Significant drop in hemoglobin noted- reassess tomorrow but no indication of acute blood loss. 10/15/16 Vancomycin was restarted yesterday afternoon after staphylococcus growth was seen in the anaerobic blood culture bottle. Other 2 antibiotics have not been restarted. Abdominal pain improving, nontender this morning. She has not had a bowel movement since admission & her routine bowel regimen was started yesterday. Urinary retention - continue bladder retraining with Alvarez. Normocytic anemia, acute - hgb decreased to 10.3 today. Will assess iron studies and check stool for occult blood. IVF: oral intake starting to improve - may be able to dc IVF soon. 09/15/16 Patient is slowly improving. Hemoglobin down with hydration in conjunction with dropping BUN/creatinine. Improved oral intake, IV fluids discontinued. Significance of staph in 1/2 cultures unclear however gram-positive cocci have now been reported on Gram stain in the same bottle. Blood cultures will be repeated, vancomycin continued pending additional information. Repeat chest x-ray in the morning, no clinical evidence of pneumonia. Will discuss plans further with Dr. Israel tomorrow, discussed with Zaira Pagan APRN briefly today. Persistent postprandial hyperglycemia, will resume Lantus at half dose in conjunction with corrective insulin. Alvarez discontinued, monitor urine output with bladder scans. Straight catheter if needed. Bowel function adequate with 3 stools/2 days 10/17/16 Patient is improving progressively. Fatigues easily. 1/2 blood culture positive coag-negative staph, repeat blood cultures negative to date. Initial culture probable contaminant-vancomycin discontinued. Alvarez catheter removed yesterday, patient is voiding but often has post void residuals of about 300 mL. Continue to monitor Improved oral intake, IV fluids discontinued yesterday. Lantus resumed at half dose, continue to monitor-anticipate resuming full dose at discharge. Daughter plans to defer radiation therapy at this time to permit patient to strengthen and recover. Both potassium and phosphorus low today-IV K-Phos to be administered, reassess in a.m. Hemoglobin stable after initial hydration; probable underlying chronic normocytic anemia. MRI brain obtained due to intermittent confusion described and to exclude intracranial metastatic [id number] changes present but no mets. JACOB ADAMS MD Oct 17, 2016 17:40
[2016-10-17] MEDS: INSULIN GLARGINE 100 UNIT/ML SQ SCH (21:07)
[2016-10-17] MEDS: EYE BOTH EYES SCH (21:08)
[2016-10-17] MEDS: BIMATOPROST 0.01% BOTH EYES SCH (21:08)
[2016-10-17 23:57] VITALS: BP 135/65; PULSE 62; RESP 18; TEMP 97.7; O2SAT 98
--- NOTE | 2016-10-18 05:22 | NUR ---
summary pt a&o to person and place. up x1 to bathroom, adequate urine output. denies n/v/soa. c/o all over pain 8/ prn percocet given as charted. remains on room air. vss. rested well. no new concerns.
[2016-10-18 05:24] LABS: ALBUMIN 2.1 G/DL (3.5-5.0); ANION GAP 8 MEQ/L (5-15); BUN/CREATININE RATIO 11 RATIO (6-26); CALCIUM 7.8 MG/DL (8.4-10.2); CHLORIDE 115 MEQ/L (98-107); CO2 - CARBON DIOXIDE 21 MEQ/L (22-30); GLOMERULAR FILTRATION RATE 53; GLUCOSE 88 MG/DL (65-110); PHOSPHORUS 2.8 MG/DL (2.5-4.5); POTASSIUM 3.6 MEQ/L (3.6-5); SODIUM 144 MEQ/L (134-144)
[2016-10-18] MEDS: OXYCODONE/APAP 5mg/325mg TABLET PO PRN ×2 (05:48→11:41)
[2016-10-18 08:00] VITALS: PULSE 62; RESP 18
[2016-10-18] MEDS: ROSUVASTATIN 10 MG TABLET PO SCH (09:10)
[2016-10-18] MEDS: LOSARTAN 100 MG TABLET PO SCH (09:11)
[2016-10-18] MEDS: DOCUSATE SODIUM 100 MG CAPSULE PO SCH (09:12)
[2016-10-18] MEDS: DULOXETINE 60 MG CAPSULE PO SCH (09:12)
[2016-10-18] MEDS: CLOPIDOGREL 75 MG TABLET PO SCH (09:13)
[2016-10-18] MEDS: AMLODIPINE 10 MG TABLET PO SCH (09:14)
[2016-10-18] MEDS: SENNOSIDES 8.6 MG TABLET PO SCH (09:14)
[2016-10-18 09:24] VITALS: BP 143/55; PULSE 67; RESP 16; TEMP 98.1; O2SAT 98
--- NOTE | 2016-10-18 12:09 | NUR ---
CM ANTICIPATED RELEASE TODAY. CALLED DENISE AT [facility], UPDATED HER. SPOKE WITH PT, UPDATED HER. SHE WAS AGREEABLE. REVIEWED IM WITH HER; SHE ASKED THAT SON SIGN IT. SHE GAVE PERMISSION TO CONTACT SON. CALLED SON DIANNA. REVIEWED IM LETTER AND HE WAS AGREEABLE AND HAD NO CONCERNS ABOUT IT. HE SAID HE CAN PICK HER UP. DISCUSSED THAT HE CAN PICK HER UP AT 3 PM. HE SAID OK. CALLED [facility], ASKED FOR DENISE, SHE WAS AT LUNCH. LEFT MESSAGE, RE: SON WILL [employer] PT AT 3 PM. Addendum: 10/18/16 at 1212 by PENNY THOMPSON Amended: Links added.
--- NOTE | 2016-10-18 13:16 | PNPDOC ---
INDIA PAGAN [employer] TECH[employer]ICIAN 10/18/16 1316: Subjective Date DATE: 10/18/16 TIME: 13:16 Sitting on side of bed, alone in room. She is alert and oriented, pleasant affect. Continues with intermittent mid/lower back pain, relieved with as needed medications. Denies nausea, vomiting. She is eating and drinking normally. Voiding normally. BM today. She is pleased to be going home today, but is concerned about pain management. General: No fever, no night sweats Eyes: No redness, no pain, no diplopia ENT: No mouth sores, no trouble swallowing Cardiac: No chest pain no palpitations Pulmonary: No cough, no shortness of breath, no wheezing Abdomen: No pain, no nausea vomiting, no diarrhea or constipation : No urgency, frequency, dysuria, or hematuria Musculoskeletal: Persistent, intermittent mid/lower back pain Neurological: No headaches, no focal weakness Skin: No rash, no sores Psychiatric: No anxiety, no depression Objective Vital Signs Vital Signs 10/18/16 10/18/16 10/18/16 08:00 09:11 09:24 Temp 98.1 Pulse 62 61 67 Resp 18 16 B/P 163/68 143/55 Pulse Ox 98 O2 Delivery Room Air Height (Feet): 5 Height (Inches): 3.00 Weight (Kilograms): 71.300 General Alert, Orientated x 3, No Acute Distress Eyes (Brief) Eyes: FOUND: PERRL, NOT FOUND: scleral icterus Neck (Brief) Neck: NOT FOUND: adenopathy, tenderness Respiratory (Brief) Respiratory: FOUND: clear all motley, NOT FOUND: rales, wheezes Cardiovascular (Brief) Cardiac: FOUND: pedal edema (trace pedal edema), regular rate, regular rhythm Abdomen (Brief) Abdominal: FOUND: BS normo active x4, NOT FOUND: hepatosplenomegaly, tender Musculoskeletal (Brief) FOUND: tenderness (mild tenderness to thoracic and lumbar spine with exam), NOT FOUND: deformity, loss of motion Integumentary (Brief) FOUND: dry, warm, NOT FOUND: rash Neurologic (Brief) FOUND: cranial 2-12 intact, NOT FOUND: motor (no acute motor deficit. Generalized weakness) Psychiatric (Brief) FOUND: alert, attentive, normal affect, oriented Laboratory Laboratory Tests Test 10/17/16 18:04 10/17/16 20:15 10/18/16 04:47 10/18/16 05:47 Glucometer 204mg/dL 275mg/dL 85mg/dL Turbidity < 20 Sodium Level 144MEQ/L Potassium Level 3.6MEQ/L Chloride Level 115MEQ/L Carbon Dioxide Level 21MEQ/L Anion Gap 8MEQ/L Blood Urea Nitrogen 11.0MG/DL Creatinine 1.0MG/DL Glomerular Filtration Rate Calc 53 BUN/Creatinine Ratio 11RATIO Glucose Level 88MG/DL Calculated Osmolality 275MOSM/KG Calcium Level 7.8MG/DL Phosphorus Level 2.8MG/DL Icterus Index < 2 Albumin 2.1G/DL Chemistry Specimen Hemolysis < 15 Test 10/18/16 10:17 Glucometer 146mg/dL Microbiology Microbiology Date/Time Source Procedure Growth Status 10/16/16 22:15 Peripheral/Iv Start Blood Culture - Preliminary NO GROWTH AFTER 24 HOURS Resulted 10/16/16 21:32 Peripheral/Iv Start Blood Culture - Preliminary NO GROWTH AFTER 24 HOURS Resulted Sepsis Diagnostic Criteria Sepsis Confirmed/Suspected Infection: Yes SIRS Criteria: Pulse >= 90 beats/min Severe Sepsis Lactate >=2.0 mg/dL Assessment & Plan Assessment 1. Metastatic breast cancer involving bone and supraclavicular area currently on Faslodex and Xgeva with fairly stable disease with slight increase in tumor markers recently. MRI shows the bone lesions appear fairly stable since 2013 although there appears to be slightly more epidural extension and would consider possible palliative radiation therapy. Seen by Dr. Ashley Guerra yesterday. 2. Urinary retention probably secondary to tramadol that has a 1-5% incidence of urinary retention. Improved. 3. Recent pneumonia with confusion related to Levaquin. Initially with sign symptoms of sepsis on hospital admission; clinically improving. Currently on vancomycin. Her initial blood culture showed gram stain positive for staph. Blood cultures negative at 72 hours. A urinary culture is negative. Has been afebrile for over 48 hours. 4. Peripheral vascular disease and coronary artery disease currently stable 5. Macular degeneration with blindness 6. Diabetes mellitus 7. Chronic renal insufficiency 8. Hypercalcemia with hyperparathyroidism probably exacerbated by hydrochlorothiazide. Calcium has been managable between 10 and 11. Calcium 7.8 today. 9. Mild anemia. Hemoglobin 10.5 today. Continue to follow Plan/Intensity of Service Oncology concurs with dismissal today. Return to clinic to see Dr. Israel next week with labs and continued Faslodex/Xgeva. Also see Dr. JAIME next week with initiation of palliative radiation to thoracic spine. Code Status Do Not Resuscitate Hospital Course Summary Disclaimer The visit summary below is not to be considered part of the above Progress Note. Hospital Course Summary Will admit patient to inpatient status under the care of Dr. Adams for sepsis with questionable urinary tract infection and abdominal pain. Patient given IV fluid boluses in the emergency room and started on antibiotic therapy. Was given cefepime, Levaquin and vancomycin. Blood cultures and urine culture are pending. May to narrow antibiotic therapy Repeat venous lactate as per sepsis protocol at 1300 today Continue with IV fluids, half-normal saline at 100 ML per hour for ongoing hydration. Noted Creatinine is slightly elevated at 1.3, however, this appears to be her baseline Any to work on more aggressive pain control as patient is quite uncomfortable at time of admission. Morphine 2 milligrams IV as needed every 2 hours Reglan and Zofran as needed for nausea control Patient does utilize scheduled Ativan for chronic anxiety. Will add Ativan 0.5 milligrams IV every 4 hours as needed as this may help with her discomfort. Patient reports having significant hemorrhoid irritation from the diarrhea. Will order Anusol suppositories as well as benzocaine topical ointment for discomfort Monitor Accu-Cheks fasting and 2 hours postprandial. He shouldn't is on Lantus 8 units subcutaneous twice a day chronically for diabetes. Will review home medications. At this time. Will place him on hold given patient 's severe abdominal pain and nausea. Question if severity of pain is secondary to Bony Mets? Patient nothing by mouth with ice chips only until symptoms have improved. Up in room with assistance SCDs to bilateral lower extremity for DVT prophylaxis Again, patient requests to be a do not resuscitate and this order is written Will discuss further plan of care with attending, Dr. Adams 10/14/16 Abdominal pain has improved. She has no nausea or vomiting. Will advance diet to full liquid with toast and crackers. Reduce rate of IVF. History of constipation, will restart routine bowel medications, which includes Colace and senna, 2 tabs BID. She had thoracic and lumbar spine MRIs today, results are pending. Hydronephrosis and urinary retention: Discussed Alvarez catheter with Alida. Her preference would be to discontinue this before discharge if possible. Possible Sepsis: No sources for pain identified. Following discussion with Alida , will discontinue antibiotics. Blood cultures are negative after 24 hours. Reassess labs tomorrow morning. Consult PT and OT for evaluation tomorrow morning. Rosario uses a walker at baseline. MRIs of the lumbar and thoracic spine were reviewed with the patient's daughter and Dr. Israel. Stable metastatic disease is described in the thoracic spine without cord compression. Metastatic disease also seen in the lumbar spine and pelvis without clear evidence of spinal canal/cord involvement. There is severe multilevel degenerative disease in the lumbar spine with central spinal stenosis and neuroforaminal stenosis greatest from L2-L5. 1/2 blood cultures positive for staph, unclear if coag negative at this time. Initiate bladder retraining at present. Significant drop in hemoglobin noted- reassess tomorrow but no indication of acute blood loss. 10/15/16 Vancomycin was restarted yesterday afternoon after staphylococcus growth was seen in the anaerobic blood culture bottle. Other 2 antibiotics have not been restarted. Abdominal pain improving, nontender this morning. She has not had a bowel movement since admission & her routine bowel regimen was started yesterday. Urinary retention - continue bladder retraining with Alvarez. Normocytic anemia, acute - hgb decreased to 10.3 today. Will assess iron studies and check stool for occult blood. IVF: oral intake starting to improve - may be able to dc IVF soon. 09/15/16 Patient is slowly improving. Hemoglobin down with hydration in conjunction with dropping BUN/creatinine. Improved oral intake, IV fluids discontinued. Significance of staph in 1/2 cultures unclear however gram-positive cocci have now been reported on Gram stain in the same bottle. Blood cultures will be repeated, vancomycin continued pending additional information. Repeat chest x-ray in the morning, no clinical evidence of pneumonia. Will discuss plans further with Dr. Israel tomorrow, discussed with Zaira Pagan APRN briefly today. Persistent postprandial hyperglycemia, will resume Lantus at half dose in conjunction with corrective insulin. Alvarez discontinued, monitor urine output with bladder scans. Straight catheter if needed. Bowel function adequate with 3 stools/2 days 10/17/16 Patient is improving progressively. Fatigues easily. 1/2 blood culture positive coag-negative staph, repeat blood cultures negative to date. Initial culture probable contaminant-vancomycin discontinued. Alvarez catheter removed yesterday, patient is voiding but often has post void residuals of about 300 mL. Continue to monitor Improved oral intake, IV fluids discontinued yesterday. Lantus resumed at half dose, continue to monitor-anticipate resuming full dose at discharge. Daughter plans to defer radiation therapy at this time to permit patient to strengthen and recover. Both potassium and phosphorus low today-IV K-Phos to be administered, reassess in a.m. Hemoglobin stable after initial hydration; probable underlying chronic normocytic anemia. MRI brain obtained due to intermittent confusion described and to exclude intracranial metastatic [id number] changes present but no mets. MAGDALENA ISRAEL 10/18/16 1620: Assessment & Plan Assessment Patient seen with in conjunction with Zaira Pagan. Planning on dismissal today. Some abdominal cramping however bladder scan had only 7 mL of urine. Reviewed CT scan and MRI of the thoracic spine with Dr. Meraz. There is bony lesions that are present that to extend the bone into the spinal canal causing mild narrowing of the spinal canal however these have been stable over the last 2 years. There was not enhancing epidural tumor tissue. We will plan on continuing her Faslodex and Xgeva next week. See patient in the office next week. I participated in the development of the plan of care of this patient and discussed with Dr. Adams. INDIA PAGAN APRN Oct 18, 2016 13:16 MAGDALENA ISRAEL Oct 18, 2016 16:20
[2016-10-18] MEDS ORDERED: POLY119P3 PO (14:16)
[2016-10-18] MEDS ORDERED: OXYC1TAB8 PO (14:16)
[2016-10-18] MEDS ORDERED: INSU3INS3 SQ (14:16)
[2016-10-18] MEDS ORDERED: BENZ30OI7 TOP (14:16)
[2016-10-18] MEDS ORDERED: SENN-156 PO (14:16)
[2016-10-18] MEDS ORDERED: HYDR25SU11 RECTALLY (14:16)
[2016-10-18] MEDS ORDERED: DOCU-168 PO (14:16)
--- NOTE | 2016-10-18 14:28 | PDOCECFAO ---
Admission Orders Admission Orders Admit to: Intermediate Allergies: Coded Allergies: iodine (Unverified Allergy, Unknown, HAS A SENSITIVITY, 10/13/16) Admitting Diagnosis Sepsis Admitting Physician Sherry Adams MD Code Status Do Not Resuscitate Anticipated LOS: 30 days or less Rehab Potential: Fair Rehab Prognosis: Fair Diet: No Concentrated Sweets, Soft (encourage increased intake liquids) Wound/Incision Care: Not applicable May use Facility Protocol /SO: Yes May Have Flu Vaccine: Yes Evaluations/Treat: PT, OT Intermediate Certification I certify that SNF services are required to be given on an Inpatient basis because of the patients need for long-term care on a continuing basis for the condition(s) for which he/she received inpatient hospital services prior to his/her transfer to the SNF. SNF inpatient care is necessary for the following reasons Diabetic Assessment, Other (pain control/assessment; strengthening/physical therapy) Cardiac or Respiratory Arrest In Event of Arrest: Do Not Start CPR Additional Orders: Accu-Cheks fasting and 2 hours after meals Patient should have follow-up appointment with Dr. Cancino in one to 2 weeks; follow up with Dr. Israel as scheduled next week. Ambulate with front-wheeled walker. SHERRY ADAMS MD Oct 18, 2016 14:28
--- NOTE | 2016-10-18 14:51 | NUR ---
DISMISSAL PT DISMISSED TO [facility] HER. PT DRESSED, GO HOME PACKET FAXED AND SENT WITH PT, PT BELONGINGS PACKED AND IVL PULLED.
--- NOTE | 2016-10-18 14:58 | NUR ---
CM PRIOR TO DISMISSAL; THIS WORKER CALLED [facility], SPOKE WITH SHONA. REVIEWED ORDERS OF SKILLED PT/OT/NURSING, AND THAT PT WOULD BE THERE SKILLED LESS THAN 30 DAYS. ALSO UPDATED HER THAT SON WILL BE HERE TO [facility] AT 3 PM, AND SHE SAID THIS IS OK. FAXED ORDERS TO HER WITH FAX CONFIRMATION RECEIVED.
--- NOTE | 2016-10-18 15:04 | NUR ---
PT NOTE: Pt not seen by PT d/t pt D/C. Call [phone] with questions.
--- NOTE | 2016-10-18 15:33 | NUR ---
JACK LEFT MESSAGE WITH SHONA AT [facility], RE: ASKING IF SHE RECEIVED THE ORDERS/ETC AND ASKING IF SHE NEEDED ANYTHING FURTHER. PROVIDED CONTACT INFO AGAIN IN CASE OF NEEDS
--- NOTE | 2016-10-18 15:50 | DSPDOC ---
General Date Date DATE: 10/18/16 TIME: 14:28 Attending Physician Sherry Adams MD Admitting Physician Sherry Adams MD Consulting Physician Andres Israel M.D., Claudia M.D. Admitting Diagnosis sepsis Discharge Diagnosis Metastatic breast cancer, bone metastases Urinary retention Dehydration Normocytic anemia Diabetes mellitus, type II with CKD stage III Anxiety Macular degeneration Hypokalemia Hypophosphatemia Hypercalcemia Laboratory Laboratory Tests Test 10/17/16 05:14 10/17/16 06:09 10/17/16 10:07 10/17/16 11:58 White Blood Count 7.1T/MM3 (4.5-11.0) Red Blood Count 3.40M/MM3 (4.00-5.20) Hemoglobin 10.5GM/DL (12-16) Hematocrit 30.1% (36-46) Mean Corpuscular Volume 88.5UM3 (80-100) Mean Corpuscular Hemoglobin 30.9UUG (26-34) Mean Corpuscular Hemoglobin Concent 34.9GM/DL (31-37) RDW Standard Deviation 38.0FL (36.9-50.2) Platelet Count 207T/MM3 (130-400) Mean Platelet Volume 10.0UM3 (9.4-12.4) Immature Granulocyte % (Auto) 0.6% (0.0-0.5) Neutrophils (%) (Auto) 55.7% (33-66) Lymphocytes (%) (Auto) 23.0% (23-45) Monocytes (%) (Auto) 9.5% (0-9.0) Eosinophils (%) (Auto) 10.6% (0-4) Basophils (%) (Auto) 0.6% (0-2) Absolute Immature Granulocyte (auto 0.04T/MM3 (0.00-0.03) Absolute Neutrophils (auto) 4.0T/MM3 (1.8-7.7) Absolute Lymphocytes (auto) 1.6T/MM3 (1-4.8) Absolute Monocytes (auto) 0.7T/MM3 (0-0.8) Absolute Eosinophils (auto) 0.8T/MM3 (0-0.5) Absolute Basophils (auto) 0.0T/MM3 (0-0.2) Turbidity < 20 (0-20) Sodium Level 141MEQ/L (134-144) Potassium Level 3.3MEQ/L (3.6-5) Chloride Level 113MEQ/L (98-107) Carbon Dioxide Level 23MEQ/L (22-30) Anion Gap 5MEQ/L (5-15) Blood Urea Nitrogen 10.0MG/DL (7-17) Creatinine 1.1MG/DL (0.7-1.2) Glomerular Filtration Rate Calc 47 BUN/Creatinine Ratio 9RATIO (6-26) Glucose Level 129MG/DL (65-110) Calculated Osmolality 272MOSM/KG (261-280) Calcium Level 8.0MG/DL (8.4-10.2) Phosphorus Level 1.8MG/DL (2.5-4.5) Magnesium Level 1.6MG/DL (1.6-2.3) Icterus Index < 2 (0-7) Albumin 2.1G/DL (3.5-5.0) Chemistry Specimen Hemolysis < 15 (0-25) Glucometer 139mg/dL (65-110) 230mg/dL (65-110) 142mg/dL (65-110) Test 10/17/16 18:04 10/17/16 20:15 10/18/16 04:47 10/18/16 05:47 Glucometer 204mg/dL (65-110) 275mg/dL (65-110) 85mg/dL (65-110) Turbidity < 20 (0-20) Sodium Level 144MEQ/L (134-144) Potassium Level 3.6MEQ/L (3.6-5) Chloride Level 115MEQ/L (98-107) Carbon Dioxide Level 21MEQ/L (22-30) Anion Gap 8MEQ/L (5-15) Blood Urea Nitrogen 11.0MG/DL (7-17) Creatinine 1.0MG/DL (0.7-1.2) Glomerular Filtration Rate Calc 53 BUN/Creatinine Ratio 11RATIO (6-26) Glucose Level 88MG/DL (65-110) Calculated Osmolality 275MOSM/KG (261-280) Calcium Level 7.8MG/DL (8.4-10.2) Phosphorus Level 2.8MG/DL (2.5-4.5) Icterus Index < 2 (0-7) Albumin 2.1G/DL (3.5-5.0) Chemistry Specimen Hemolysis < 15 (0-25) Test 10/18/16 10:17 10/18/16 14:11 Glucometer 146mg/dL (65-110) 172mg/dL (65-110) On admission white count 11.1 with hemoglobin 14.5; creatinine 1.3, BUN 21, electrolytes and liver enzymes unremarkable, lactic acid 2.4 LDH 324, CEA 2.87, CA 27-29 43.47 on 10/15 Serum iron 26, TIBC 172, ferritin 236, folic acid > 20 on 10/15 Microbiology Microbiology Date/Time Source Procedure Growth Status 10/16/16 22:15 Peripheral/Iv Start Blood Culture - Preliminary NO GROWTH AFTER 24 HOURS Resulted 10/16/16 21:32 Peripheral/Iv Start Blood Culture - Preliminary NO GROWTH AFTER 24 HOURS Resulted 1/2 blood cultures drawn 10/13 positive coag-negative staph felt to be contaminant Urine culture 10/15 negative after 48 hours Radiology Chest x-ray on admission was unremarkable other than a density projecting in the left medial apex which was without any correlating abnormality on CT chest from June. Repeat chest x-ray on 10/17/16 demonstrated trace right pleural effusion but lungs were otherwise clear. CT (noncontrast) of the abdomen and pelvis on admission-New bladder distention and hydronephrosis suggesting some type of bladder outlet obstruction. MRI of the thoracic spine with and without contrast on 10/14/16- . Metastases throughout the thoracic spine are stable in size without significant progression or developing new metastases. The T6 metastases demonstrate persistent enhancement. The remaining metastases do not demonstrate enhancement on today's study. 2. No significant abnormal enhancement within the spinal canal or spinal cord. No evidence for soft tissue metastases and associated central canal/neuroforaminal stenosis. 3. There is multilevel degenerative disease and facet arthropathy similar to the prior study MRI of the lumbar spine with and without contrast on 10/14/16- . Multifocal osseous metastases involving the lumbar spine and pelvis without clear involvement of the spinal canal/cord or neural foramen. The distribution appears similar when compared to the prior bone scan in June 2016. 2. No evidence for pathologic fracture. No subluxation. 3. Significant multilevel degenerative disease with associated varying degrees of central canal and neuroforaminal stenosis worse at the L2-3 through L4-5 levels as described above MRI of the brain with contrast on 10/17/16- No evidence of intracranial metastatic disease. Small areas of abnormality in the deep frontoparietal white matter was seen that most likely represents small vessel Ischemic disease. Considered normal for patient's age. History of Present Illness History of Present Illness Patient is a 6-year-old female who is brought to the emergency room today for evaluation of severe abdominal pain with dysuria. It is reported that patient has been having intermittent episodes of diarrhea for the past 10 days. Over the last 24 hours she has had worsening lower abdominal discomfort accompanied with intermittent nausea.Nursing staff repots that stool is has a "foul" odor. Due to severity in her pain she was sent to the emergency room for further evaluation and treatment. Patient currently resides at [facility]. Patient's son reports that she was found to have recurrence of her breast cancer approximately one month ago and started hormone therapy with Dr. Israel. It is also reported that she has some metastatic disease into her bones. While in the emergency room today. Further evaluation including laboratory studies and CT scan were obtained. Patient was found have an elevated white count at 11.1, hemoglobin 14.5, hematocrit 42.1, platelet count 261. Sodium is 144, potassium 3.9, BUN 21, creatinine 1.3, glucose 112, calculated osmolality 281. LFTs are normal. Venous lactate was found to be elevated at 2.4, pro calcitonin 0.10. An ABG was obtained showing a pH of 7.674, pCO2 18, pO2 30, bicarbonate 21. Urinalysis did show 3+ protein, trace leuk trase, positive blood with 3+ bacteria. Chest x-ray did not reveal any acute cardiopulmonary findings. CT of the abdomen did reveal overdistention of the bladder, with 1200 ML's of urine. Mild colonic diverticulosis without evidence of diverticulitis, extensive osteoblastic skeletal metastasis. She was given IV fluids in the emergency room. She was then started on triple antibiotic therapy including cefepime, Levaquin and vancomycin. She received 2 doses of Dilaudid and Toradol for pain control. As well as Zofran for nausea. Alvarez catheter was placed to dependent drainage. Given bladder overdistention. Given continued severity and pain, as well as findings of sepsis. The hospitalist services were contacted and accepted patient for inpatient admission for further evaluation and treatment. Did review advanced directives with patient and son. She does verify that she is a do not resuscitate. Hospital Course Mrs. Julio was admitted with concern for severe sepsis, questionable UTI, and abdominal pain. Lactic acid was elevated on admission and there was evidence of dehydration. Admission UA was without pyuria and urine culture negative. The patient was initially treated with triple antibiotics per sepsis of unknown origin protocol. Clinically there was no indication of sepsis and lactic acid normalized following fluid administration. With fluids hemoglobin dropped from 14.5 to 10.8, BUN 21 to 17 within 24 hours and later 10, and creatinine 1.3 to 1.0. One of 2 blood cultures from admission was positive for staph which ultimately was demonstrated to be coag-negative and felt to be a contaminant. Repeat blood cultures are negative at discharge. CT imaging of the abdomen and pelvis demonstrated marked distention of the bladder consistent with urinary retention prompting placement of a Alvarez catheter on admission. Abdominal pain resolved over the next 48 hours and the catheter was later discontinued ( following discontinuation tramadol) without difficulty recurrent retention. The patient underwent extensive imaging regarding back pain and progressive confusion family noted. MRI of the spine demonstrated relatively stable bone lesions although increased epidural extension was noted in the mid thoracic spine and palliative radiation therapy recommended by Dr. Israel. Dr. Darren Guerra evaluated the patient and is planning reassessment in the office to initiate therapy in the near future. MRI of the brain was without evidence of metastatic disease. Mild hypercalcemia was present on admission and Dr. Israel noted history of hyperparathyroidism possibly exacerbated by hydrochlorothiazide. Calcium has ranged from 10-11 in the recent past. HCTZ discontinued. Both potassium and phosphorus required replacement after hydration and outpatient follow-up of electrolytes recommended. Renal function stable following initial hydration. Hemoglobin stable after initial drop with hydration, iron studies consistent with chronic disease. One of 2 Hemoccults was positive for microscopic blood but further evaluation not felt indicated at this time and no overt blood loss was present. Patient did have significant difficulty with hemorrhoids and constipation prompting initiation of the bowel regimen with stool softeners and a fiber supplement in conjunction with steroid suppositories and topical benzocaine ointment for symptomatic relief. Blood sugars were monitored throughout the hospitalization, there was moderate hyperglycemia when oral intake resumed prompting reinitiation of Lantus once daily. Continued testing of Accu-Cheks on return to residential recommended. On 10/18 patient was felt stable for discharge. She complained of some generalized abdominal discomfort after a bowel movement but symptoms subsided after taking prescribed pain medications. She was able to eat breakfast without difficulty and repeat bladder scan demonstrated residual volume less than 10 cc. The patient denied dyspnea but reports continued back pain. Examination revealed the patient to be alert and respirations were nonlabored with her lung motley bilaterally. The abdomen was soft with mild generalized tenderness initially although repeat examination 45 minutes later demonstrated minimal discomfort. Patient felt stable for discharge back to [facility] to continue recovery in the residential setting. She is to follow-up with Dr. Cancino and Dr. Israel within the next 1-2 weeks. >30 minutes spent on patient care and discharge care coordination today on the date of discharge. -- Problems: (1) Dehydration Status: Acute Assessment & Plan: Present on admission (2) Bone metastasis Status: Chronic (3) Breast cancer Status: Chronic (4) Urinary retention Status: Resolved Assessment & Plan: Alvarez catheter inserted on 10/13/16 (5) Normocytic anemia Status: Chronic Assessment & Plan: Anemia of chronic disease (6) Severe sepsis Status: Resolved Assessment & Plan: Lactic acid 2.4, MAXIMUM TEMPERATURE 99.9, tachycardia, white count 11.1 Sepsis ruled out-no evidence of infection. Lactic acidosis attributed to dehydration. (7) Abdominal pain Status: Resolved (8) Anxiety Status: Chronic (9) Diabetes Status: Chronic (10) Macular degeneration Status: Chronic (11) Diarrhea Status: Chronic (12) Depression Status: Chronic (13) CKD (chronic kidney disease), stage III Status: Chronic (14) Hypokalemia Status: Resolved (15) Hypophosphatemia Status: Resolved Code Status Do Not Resuscitate Home Meds Active Scripts Hydrocortisone Acetate (Anucort-Hc) 25 Mg Supp.rect, 25 MG RECTALLY QID Y for HEMORRHOIDS for 14 Days Prov:SHERRY ADAMS MD 10/18/16 Benzocaine (Americaine) 28 Gm Oint...g., 1 APPLIC TOP Q4H Y for HEMORRHOIDS for 14 Days, G Prov:SHERRY ADAMS MD 10/18/16 Docusate Sodium (Colace) 100 Mg Capsule, 200 MG PO BID for CONSTIPATION, #30 CAP Prov:SHERRY ADAMS MD 10/18/16 Sennosides (Senna) 8.6 Mg Tablet, 17.2 MG PO BID for CONSTIPATION, #30 TAB Prov:SHERRY ADAMS MD 10/18/16 Oxycodone HCl/Acetaminophen (Percocet 5-325 mg Tablet) 5-325 Tablet, 1 TAB PO Q4H Y for PAIN, #30 TAB Prov:SHERRY ADAMS MD 10/18/16 Polyethylene Glycol 3350 (Miralax) 119 Gm Powder, 17 G PO DAILY, #30 Prov:SHERRY ADAMS MD 10/18/16 Insulin Glargine,Hum.rec.anlog (Lantus Solostar) 1 Unit Pen, 10 UNIT SQ DAILY for Diabetes mellitus, #30 Prov:SHERRY ADAMS MD 10/18/16 Reported Medications Magnesium Hydroxide (Milk of Magnesia) 400 Mg/5 Ml Oral.susp, 30 ML PO Q8H Y for CONSTIPATION 10/13/16 Acetaminophen (Mapap) 325 Mg Tablet, 650 MG PO Q4H Y for PAIN 10/13/16 Lorazepam (Lorazepam) 0.5 Mg Tablet, 0.5 MG PO Q8H Y for ANXIETY 10/13/16 Bisacodyl (Bisac-Evac) 10 Mg Supp.rect, 10 MG RECTALLY DAILY Y for CONSTIPATION 10/13/16 Cholecalciferol (Vitamin D3) (Vitamin D) 400 Unit Capsule, 400 MG PO DAILY 10/13/16 Calcium Carbonate (Oyster Shell Calcium) 500 Mg Tablet, 500 MG PO BID 10/13/16 Metoprolol Tartrate (Metoprolol Tartrate) 25 Mg Tablet, 12.5 MG PO BIDWM 10/13/16 Bimatoprost (Lumigan) 25 Drop/2.5 Ml Drops, 1 DROP BOTH EYES HS 10/13/16 Multivit-Min/FA/Lutein/Zeaxant (Icaps Mv Tablet) 1 Each Tablet.dr, 1 TAB PO MoWeFr@0800 10/13/16 Multivits-Min/FA/Lycopene/Lut (Centrum Silver Tablet) 1 Each Tablet, 1 TAB PO TuFr@0800 10/13/16 Duloxetine HCl (Cymbalta) 60 Mg Capsule.dr, 60 MG PO DAILY 1/21/15 Rosuvastatin Calcium (Crestor) 10 Mg Tablet, 10 MG PO DAILY 05/24/14 Amlodipine Besylate (Amlodipine Besylate) 10 Mg Tablet, 10 MG PO DAILY 05/24/14 Losartan Potassium (Losartan Potassium) 100 Mg Tablet, 100 MG PO DAILY 05/24/14 Clopidogrel Bisulfate (Clopidogrel) 75 Mg Tablet, 75 MG PO DAILY for 90 Days 05/23/14 Discontinued Reported Medications Tramadol HCl (Tramadol HCl) 50 Mg Tablet, 50 MG PO BID Y for PAIN 10/13/16 Tramadol HCl (Tramadol HCl) 50 Mg Tablet, 100 MG PO HS 10/13/16 Zolpidem Tartrate (Zolpidem Tartrate) 5 Mg Tablet, 2.5 MG PO HS Y for INSOMNIA 05/24/14 Hydrochlorothiazide (Hydrochlorothiazide) 25 Mg Tablet, 25 MG PO DAILY 05/24/14 Face to Face Encounter I met with patient on the day of dismissal and discussed follow up appointments , medications, and safety plan. Discharge Disposition [facility] Copies To 1: ANDRES ISRAEL; STEPHANIE ESCOBAR MD Documentation Requirements Chronic Kidney Disease Stage of CKD: Stage 3 GFR 30-59 Anemia Anemia Acuity: Chronic (chronic disease-malignancy) Diabetes Diabetes Type: Type 2 Diabetes Is Diabetes Contolled?: Uncontolled SHERRY ADAMS MD Oct 18, 2016 14:40
== END 2016-10-18 14:53 | DRG 598 ==
LOC: ED 07:37 → EDHOLD 11:01 → MED 11:15
PROVIDERS: ADMIT Internal Medicine; ATTEND Internal Medicine
DX: C50.911 Malignant neoplasm of unspecified site of right female breast (principal); C79.51 Secondary malignant neoplasm of bone; E11.22 Type 2 diabetes mellitus with diabetic chronic kidney disease; N18.3 Chronic kidney disease, stage 3 (moderate); Z66 Do not resuscitate; E86.0 Dehydration; R30.0 Dysuria; R10.9 Unspecified abdominal pain; R19.7 Diarrhea, unspecified; R33.9 Retention of urine, unspecified; I25.10 Atherosclerotic heart disease of native coronary artery without angina pectoris; D63.8 Anemia in other chronic diseases classified elsewhere; F41.9 Anxiety disorder, unspecified; H35.30 Unspecified macular degeneration; E21.3 Hyperparathyroidism, unspecified; E87.6 Hypokalemia; E83.39 Other disorders of phosphorus metabolism; K21.9 Gastro-esophageal reflux disease without esophagitis; Z79.4 Long term (current) use of insulin; Z95.5 Presence of coronary angioplasty implant and graft
CPT/HCPCS: 36000; 36415; 51701; 51702; 80048; 80053; 80069; 81001; 82272; 82378; 82728; 82746; 82803; 82948; 83540; 83550; 83605; 83615; 83690; 83735; 84145; 85025; 86300; 87040; 87086; 87150; 87205; 87507; 96361; 96365; 96367; 96375